=== PATIENT | male | born 1960 | race Caucasian/White ===

== ENCOUNTER 2018-04-07 01:17 | Emergency (ER) | payer MEDICAID, OTHER ==
[2018-04-07] MEDS ORDERED: ALPRAZolam 1 MG TAB PO STA (01:56)
--- NOTE | 2018-04-07 02:11 | ED ---
Psych HPI - General Chief Complaint: Psychiatric Symptoms Stated Complaint: Mental health Time Seen by Provider: 04/07/18 01:42 Source: patient Mode of arrival: ambulatory - History of Present Illness Initial Comments: 57-year-old male patient with past history significant for bipolar type schizoaffective disorder presents to the emergency department today for psychiatric evaluation and increased auditory hallucinations. Patient states he has not taken his medication for the last 5 days. States he threw them away because "Lord Palencia is my savior and with him I do not need medication". Patient denies any suicidal or homicidal ideation. He will not reveal what the voices say to him. Patient denies any current physical symptoms or concerns. Denies any alcohol use. States he does occasionally smoke marijuana. Patient denies any recent rash, fever, chills, shortness breath, chest pain, abdominal pain, nausea, vomiting, diarrhea, constipation, back pain, numbness, tingling, dizziness, weakness, hematuria, dysuria, urinary urgency, urinary frequency, headache, visual changes, or any other complaints. - Related Data Home Medications Medication Instructions Recorded Confirmed HYDROcodone/APAP 7.5-325MG [[place] 1 each PO Q6HR PRN 03/15/15 03/16/15 7.5-325] Previous Rx's Medication Instructions Recorded clonazePAM [KlonoPIN] 1 mg PO BID PRN #30 tab 08/27/14 Gabapentin [Neurontin] 300 mg PO BID #14 cap 03/20/15 Levothyroxine Sodium [Synthroid] 100 mcg PO DAILY@0630 #7 tab 03/20/15 OLANZapine [ZyPREXA] 20 mg PO HS #7 tab 03/20/15 Sertraline [Zoloft] 100 mg PO DAILY #7 tab 03/20/15 hydrOXYzine PAMOATE [Vistaril] 25 mg PO DAILY #7 cap 03/20/15 hydrOXYzine PAMOATE [Vistaril] 50 mg PO HS #7 cap 03/20/15 Allergies Allergy/AdvReac Type Severity Reaction Status Date / Time No Known Allergies Allergy Verified 04/07/18 01:27 Review of Systems ROS Statement: Those systems with pertinent positive or pertinent negative responses have been documented in the HPI. ROS Other: All systems not noted in ROS Statement are negative. Past Medical History Past Medical History: No Reported History Additional Past Medical History / Comment(s): hepatits c History of Any Multi-Drug Resistant Organisms: None Reported Past Surgical History: Appendectomy, Hernia Repair Additional Past Surgical History / Comment(s): 2 Hernia Repairs Past Anesthesia/Blood Transfusion Reactions: No Reported Reaction Past Psychological History: Anxiety, Bipolar, Depression Smoking Status: Current every day smoker Past Alcohol Use History: None Reported Past Drug Use History: None Reported General Exam Limitations: no limitations General appearance: alert, in no apparent distress, other (Social well-developed , well-nourished adult male patient in no acute distress. Vital signs upon presentation are temperature 98.8F, pulse 121, respirations 20, blood pressure 152/87, pulse ox 96% on room air.) Eye exam: Present: normal appearance, PERRL, EOMI. Absent: scleral icterus, conjunctival injection, periorbital swelling ENT exam: Present: normal exam, normal oropharynx, mucous membranes moist Respiratory exam: Present: normal lung sounds bilaterally. Absent: respiratory distress, wheezes, rales, rhonchi, stridor Cardiovascular Exam: Present: regular rate, normal rhythm, normal heart sounds. Absent: systolic murmur, diastolic murmur, rubs, gallop, clicks GI/Abdominal exam: Present: soft, normal bowel sounds. Absent: distended, tenderness, guarding, rebound, rigid Neurological exam: Present: alert, oriented X3, CN II-XII intact Psychiatric exam: Present: manic. Absent: homicidal ideation, suicidal ideation Skin exam: Present: warm, dry, intact, normal color. Absent: rash Course Vital Signs 04/07/18 01:23 Temperature 98.8 F Pulse Rate 121 H Respiratory 20 Rate Blood Pressure 152/87 O2 Sat by Pulse 96 Oximetry Medical Decision Making - Medical Decision Making 57-year-old male patient presents to the emergency department today for evaluation of increased auditory hallucinations and coral. Patient states his symptoms are not that bad that he wanted to present before things got out of control. He is not suicidal or homicidal. He was seen and evaluated by emergency psychiatric services. They do feel that he will be safe for discharge. He does agree to follow-up with both his primary care physician and [facility] tomorrow. He'll be given Klonopin prior to discharge. Return parameters were discussed in detail. He verbalizes understanding and agrees with this plan. Disposition Clinical Impression: Schizoaffective disorder Disposition: HOME SELF-CARE Condition: Good Instructions: Schizoaffective Disorder (ED) Additional Instructions: Follow-up with primary care physician and community mental health tomorrow. Take medication as directed. Return here immediately for any new, worsening, or concerning symptoms. Is patient prescribed a controlled substance at d/c from ED?: No Referrals: Mikhail Baker MD [Primary Care Provider] - 1-2 days Time of Disposition: 04:16
[2018-04-07] MEDS ORDERED: clonazePAM 1 MG TAB PO STA (04:11)
[2018-04-07 04:33] VITALS: BP 134/75; PULSE 78; RESP 18; TEMP 97
== END 2018-04-07 04:33 | disposition home or self-care (01) ==
LOC: EC 01:17
DX: F25.9 Schizoaffective disorder, unspecified (principal); F12.90 Cannabis use, unspecified, uncomplicated; F17.200 Nicotine dependence, unspecified, uncomplicated
CPT/HCPCS: 99285

== ENCOUNTER 2018-09-10 14:20 | Emergency (ER) | payer OTHER ==
[2018-09-10] MEDS ORDERED: SODIUM CHLORIDE 0.9% 500 ML 500 ML IV STA (14:46)
[2018-09-10] MEDS ORDERED: ONDANSETRON 4 MG/2 ML VIAL IVP STA (14:46)
[2018-09-10] MEDS ORDERED: SODIUM CHLORIDE 0.9% 1,000 ML IV STA (14:46)
[2018-09-10 14:59] LABS: Basophils % (A) 0 %; Eosinophils # (A) 0.2 k/uL (0-0.7); Eosinophils % (A) 2 %; HCT 43.4 % (39.0-53.0); HGB 14.3 gm/dL (13.0-17.5); Lymphocytes # (A) 1.2 k/uL (1.0-4.8); Lymphocytes % (A) 11 %; MCH 30.9 pg (25.0-35.0); MCHC 32.9 g/dL (31.0-37.0); MCV 93.8 fL (80.0-100.0); Mean Platelet Volume 6.8; Monocytes # (A) 0.4 k/uL (0-1.0); Monocytes % (A) 4 %; Neutrophils # (A) 9.1 k/uL (1.3-7.7); Neutrophils % (A) 83 %; Platelet Count 332 k/uL (150-450); RBC 4.63 m/uL (4.30-5.90); RDW 12.7 % (11.5-15.5)
--- NOTE | 2018-09-10 14:59 | ED ---
General Adult HPI - General Chief complaint: Nausea/Vomiting/Diarrhea Stated complaint: Nausea Time Seen by Provider: 09/10/18 14:20 Source: EMS, RN notes reviewed Mode of arrival: EMS Limitations: no limitations - History of Present Illness Initial comments: This is a 57-year-old male presents emergency room stating last night he vomited after he ate dinner. Patient states she went to bed and was feeling better at that time. Patient states she woke up this morning and she's been nauseated ever since per patient states she's been unable to vomit. Patient denies any diarrhea. Patient states she has no abdominal pain but his whole abdomen feels nauseated. Patient denies any fever chills per patient denies any dysuria hematuria urinary frequency. Patient denies any chest pain difficulty breathing first breath per patient denies any headache patient denies any numbness weakness. Patient denies any lightheadedness dizziness or near syncopal episode. Patient denies any blood in the vomitus. - Related Data Home Medications Medication Instructions Recorded Confirmed HYDROcodone/APAP 7.5-325MG [[place] 1 each PO Q6HR PRN 03/15/15 03/16/15 7.5-325] Previous Rx's Medication Instructions Recorded clonazePAM [KlonoPIN] 1 mg PO BID PRN #30 tab 08/27/14 Gabapentin [Neurontin] 300 mg PO BID #14 cap 03/20/15 Levothyroxine Sodium [Synthroid] 100 mcg PO DAILY@0630 #7 tab 03/20/15 OLANZapine [ZyPREXA] 20 mg PO HS #7 tab 03/20/15 Sertraline [Zoloft] 100 mg PO DAILY #7 tab 03/20/15 hydrOXYzine PAMOATE [Vistaril] 25 mg PO DAILY #7 cap 03/20/15 hydrOXYzine PAMOATE [Vistaril] 50 mg PO HS #7 cap 03/20/15 Ondansetron [Zofran] 4 mg PO Q8HR PRN #5 tab 09/10/18 Allergies Allergy/AdvReac Type Severity Reaction Status Date / Time No Known Allergies Allergy Verified 04/07/18 01:27 Review of Systems ROS Statement: Those systems with pertinent positive or pertinent negative responses have been documented in the HPI. ROS Other: All systems not noted in ROS Statement are negative. Past Medical History Past Medical History: No Reported History Additional Past Medical History / Comment(s): hepatits c History of Any Multi-Drug Resistant Organisms: None Reported Past Surgical History: Appendectomy, Hernia Repair Additional Past Surgical History / Comment(s): 2 Hernia Repairs Past Anesthesia/Blood Transfusion Reactions: No Reported Reaction Past Psychological History: Anxiety, Bipolar, Depression Smoking Status: Current every day smoker Past Alcohol Use History: None Reported Past Drug Use History: None Reported General Exam - General Exam Comments Initial Comments: GENERAL: Patient is well-developed and well-nourished. Patient is nontoxic and well- hydrated and is in no acute distress. ENT: Neck is soft and supple. No significant lymphadenopathy is noted. Neck has full range of motion without eliciting any pain. EYES: The sclera were anicteric and conjunctiva were pink and moist. Extraocular movements were intact and pupils were equal round and reactive to light. Eyelids were unremarkable. PULMONARY: Unlabored respirations. Good breath sounds bilaterally. No audible rales rhonchi or wheezing was noted. CARDIOVASCULAR: There is a regular rate and rhythm without any murmurs gallops or rubs. ABDOMEN: Soft and nontender with normal bowel sounds. No palpable organomegaly was noted. There is no palpable pulsatile mass. SKIN: Skin is clear with no lesions or rashes and otherwise unremarkable. NEUROLOGIC: Patient is alert and oriented x3. Cranial nerves II through XII are grossly intact. Motor and sensory are also intact. Normal speech, volume and content. Symmetrical smile. MUSCULOSKELETAL: Normal extremities with adequate strength and full range of motion. No lower extremity swelling or edema. No calf tenderness. LYMPHATICS: No significant lymphadenopathy is noted PSYCHIATRIC: Normal psychiatric evaluation. Limitations: no limitations Course Vital Signs 09/10/18 09/10/18 14:21 15:42 Temperature 99.5 F 99 F Pulse Rate 67 72 Respiratory 24 20 Rate Blood Pressure 159/100 145/97 O2 Sat by Pulse 99 99 Oximetry Medical Decision Making - Medical Decision Making Patient received a liter of fluid in the emergency department as well as Zofran. Patient states he felt considerably better. I went back in and reevaluated t he patient his abdomen was soft nontender. - Lab Data Result diagrams: 09/10/18 14:50 09/10/18 14:50 Lab Results 09/10/18 09/10/18 Range/Units 14:50 14:50 WBC 11.0 H (3.8-10.6) k/uL RBC 4.63 (4.30-5.90) m/uL Hgb 14.3 (13.0-17.5) gm/dL Hct 43.4 (39.0-53.0) % MCV 93.8 (80.0-100.0) fL MCH 30.9 (25.0-35.0) pg MCHC 32.9 (31.0-37.0) g/dL RDW 12.7 (11.5-15.5) % Plt Count 332 (150-450) k/uL Neutrophils % 83 % Lymphocytes % 11 % Monocytes % 4 % Eosinophils % 2 % Basophils % 0 % Neutrophils # 9.1 H (1.3-7.7) k/uL Lymphocytes # 1.2 (1.0-4.8) k/uL Monocytes # 0.4 (0-1.0) k/uL Eosinophils # 0.2 (0-0.7) k/uL Basophils # 0.0 (0-0.2) k/uL Sodium 141 (137-145) mmol/L Potassium 3.6 (3.5-5.1) mmol/L Chloride 109 H (98-107) mmol/L Carbon Dioxide 21 L (22-30) mmol/L Anion Gap 11 mmol/L BUN 16 (9-20) mg/dL Creatinine 0.77 (0.66-1.25) mg/dL Est GFR (CKD-EPI)AfAm >90 (>60 ml/min/1.73 sqM) Est GFR (CKD-EPI)NonAf >90 (>60 ml/min/1.73 sqM) Glucose 126 H (74-99) mg/dL Calcium 9.9 (8.4-10.2) mg/dL Total Bilirubin 0.6 (0.2-1.3) mg/dL AST 19 (17-59) U/L ALT 27 (21-72) U/L Alkaline Phosphatase 102 (38-126) U/L Total Protein 7.5 (6.3-8.2) g/dL Albumin 4.6 (3.5-5.0) g/dL Amylase 53 (30-110) U/L Lipase 60 (23-300) U/L Disposition Clinical Impression: Acute vomiting Disposition: HOME SELF-CARE Instructions (If sedation given, give patient instructions): Acute Nausea and Vomiting (ED) Prescriptions: Ondansetron [Zofran] 4 mg PO Q8HR PRN #5 tab PRN Reason: Nausea Is patient prescribed a controlled substance at d/c from ED?: No Referrals: Mikhail Baker MD [Primary Care Provider] - 1-2 days Time of Disposition: 15:28
[2018-09-10 15:09] LABS: ALT 27 U/L (21-72); AST 19 U/L (17-59); Albumin 4.6 g/dL (3.5-5.0); Alkaline Phosphatase 102 U/L (38-126); Amylase 53 U/L (30-110); Anion Gap 11 mmol/L; Blood Urea Nitrogen 16 mg/dL (9-20); Calcium 9.9 mg/dL (8.4-10.2); Carbon Dioxide 21 mmol/L (22-30); Chloride 109 mmol/L (98-107); Glucose 126 mg/dL (74-99); Lipase 60 U/L (23-300); Potassium 3.6 mmol/L (3.5-5.1); Sodium 141 mmol/L (137-145); Total Bilirubin 0.6 mg/dL (0.2-1.3); Total Protein 7.5 g/dL (6.3-8.2)
[2018-09-10 15:44] VITALS: BP 145/97; PULSE 72; RESP 20; TEMP 99
== END 2018-09-10 15:43 | disposition home or self-care (01) ==
LOC: EEVIPCON 14:20 → EC 14:20
DX: R11.2 Nausea with vomiting, unspecified (principal); F17.200 Nicotine dependence, unspecified, uncomplicated; Z90.49 Acquired absence of other specified parts of digestive tract
CPT/HCPCS: 36415; 80053; 82150; 83690; 85025; 99284; 96374; 96361; J2405

== ENCOUNTER 2022-09-24 23:08 | Inpatient (IN) | payer OTHER ==
[2022-09-25] MEDS ORDERED: LORazepam 2 MG/ML INJ IM STA (00:54)
--- NOTE | 2022-09-25 01:17 | ED ---
General Adult HPI - General Chief complaint: Psychiatric Symptoms Stated complaint: Mental Health Time Seen by Provider: 09/24/22 23:24 Source: patient, police, RN notes reviewed, old records reviewed Mode of arrival: ambulatory - History of Present Illness Initial comments: 61-year-old male with history of schizophrenia presenting with paranoia and behavior. He was brought in by medics after calling police. Patient is not able to give a detailed history. He is paranoid and quite agitated. - Related Data Home Medications Medication Instructions Recorded Confirmed HYDROcodone/APAP 7.5-325MG [[place] 1 each PO Q6HR PRN 03/15/15 03/16/15 7.5-325] Previous Rx's Medication Instructions Recorded clonazePAM [KlonoPIN] 1 mg PO BID PRN #30 tab 08/27/14 Gabapentin [Neurontin] 300 mg PO BID #14 cap 03/20/15 Levothyroxine Sodium [Synthroid] 100 mcg PO DAILY@0630 #7 tab 03/20/15 OLANZapine [ZyPREXA] 20 mg PO HS #7 tab 03/20/15 Sertraline [Zoloft] 100 mg PO DAILY #7 tab 03/20/15 hydrOXYzine pamoate [Vistaril] 25 mg PO DAILY #7 cap 03/20/15 hydrOXYzine pamoate [Vistaril] 50 mg PO HS #7 cap 03/20/15 Ondansetron [Zofran] 4 mg PO Q8HR PRN #5 tab 09/10/18 Allergies Allergy/AdvReac Type Severity Reaction Status Date / Time No Known Allergies Allergy Verified 04/07/18 01:27 Review of Systems ROS Statement: Those systems with pertinent positive or pertinent negative responses have been documented in the HPI. ROS Other: All systems not noted in ROS Statement are negative. Past Medical History Past Medical History: No Reported History Additional Past Medical History / Comment(s): hepatits c History of Any Multi-Drug Resistant Organisms: None Reported Past Surgical History: Appendectomy, Hernia Repair Additional Past Surgical History / Comment(s): 2 Hernia Repairs Past Anesthesia/Blood Transfusion Reactions: No Reported Reaction Past Psychological History: Anxiety, Bipolar, Depression Past Alcohol Use History: None Reported Past Drug Use History: None Reported General Exam General appearance: alert, in no apparent distress Head exam: Present: atraumatic, normocephalic Eye exam: Present: normal appearance, PERRL ENT exam: Present: normal exam Neck exam: Present: normal inspection. Absent: tenderness, meningismus Respiratory exam: Present: normal lung sounds bilaterally. Absent: respiratory distress Cardiovascular Exam: Present: regular rate, normal rhythm GI/Abdominal exam: Absent: distended Neurological exam: Present: alert. Absent: oriented X3, motor sensory deficit Psychiatric exam: Present: agitated Skin exam: Present: warm, dry, intact Course Vital Signs 09/24/22 23:11 Temperature 99 F Pulse Rate 107 H Respiratory 18 Rate Blood Pressure 148/106 O2 Sat by Pulse 98 Oximetry - Reevaluation(s) Reevaluation #1: 09/25/22 01:17 Cleared for EPS Medical Decision Making - Medical Decision Making Was pt. sent in by a medical professional or institution ([facility] Garcia, SCHEDULING MANAGER, urgent care, hospital, or [place] [facility] facility...) When possible be specific @ -No Did you speak to anyone other than the patient for history (EMS, parent, family, police, friend...)? What history was obtained from this source @ -No Did you review nursing and triage notes (agree or disagree)? Why? @ -I reviewed and agree with nursing and triage notes Were old charts reviewed (outside hosp., previous admission, EMS record, old EKG, old radiological studies, urgent care reports/EKG's, [place] health [facility] facility records)? Report findings @ -No old charts were reviewed Differential Diagnosis (chest pain, altered mental status, abdominal pain women, abdominal pain men, vaginal bleeding, weakness, fever, dyspnea, syncope, headache, dizziness, GI bleed, back pain, seizure, CVA, palpatations, mental health, musculoskeletal)? @ -Differential Mental Health Depression, anxiety, bipolar, psychosis, schizophrenia, borderline personality, situational depression, adjustment disorder, behavioral disorder, brain tumor, malingering, substance abuse, encephalopathy, medication reaction, dementia, hypothyroidism, degenerative neurologic disorder, lupus.... This is not meant to be all-inclusive list EKG interpreted by me (3pts min.). @ -As above X-rays interpreted by me (1pt min.). @ -None done CT interpreted by me (1pt min.). @ -None done U/S interpreted by me (1pt. min.). @ -None done What testing was considered but not performed or refused? (CT, X-rays, U/S, labs)? Why? @ -None What meds were considered but not given or refused? Why? @ -None Did you discuss the management of the patient with other professionals (professionals i.e. , PA, SCHEDULING MANAGER, lab, RT, psych nurse, marriage and family social worker, criminal defense lawyer, teacher, classifications officer cc/cm, caseworker protective services)? Give summary @ -No Was smoking cessation discussed for >3mins.? @ -No Was critical care preformed (if so, how long)? @ -No Were there social determinants of health that impacted care today? How? (Homelessness, low income, unemployed, alcoholism, drug addiction, transportation, low edu. Level, literacy, decrease access to med. care, senior living, rehab)? @ -No Was there de-escalation of care discussed even if they declined (Discuss DNR or withdrawal of care, Hospice)? DNR status @ -No What co-morbidities impacted this encounter? (DM, HTN, Smoking, COPD, CAD, Cancer, CVA, ARF, Chemo, Hep., AIDS, mental health diagnosis, sleep apnea, morbid obesity)? @ -None Was patient admitted / discharged? Hospital course, mention meds given and route, prescriptions, significant lab abnormalities, going to OR and other pertinent info. @ -Patient acutely psychotic, off of his medications with history of schizophrenia. He will be admitted to this institution. Undiagnosed new problem with uncertain prognosis? @ -No Drug Therapy requiring intensive monitoring for toxicity (Heparin, Nitro, Insulin, Cardizem)? @ -No Were any procedures done? @ -No Diagnosis/symptom? @ -Acute psychosis Acute, or Chronic, or Acute on Chronic? @ -Acute Disposition Clinical Impression: Psychosis, Acute psychosis Disposition: ADMITTED IP TO THIS [facility] Condition: Stable Is patient prescribed a controlled substance at d/c from ED?: No Referrals: Mikhail Baker MD [Primary Care Provider] - 1-2 days Time of Disposition: 01:35
[2022-09-25] MEDS ORDERED: ACETAMINOPHEN TAB 325 MG TAB PO PRN (02:32)
[2022-09-25] MEDS ORDERED: MAGNESIUM HYDROXIDE 2,400 MG/10 ML CUP PO PRN (02:32)
[2022-09-25] MEDS ORDERED: MAG HYDROX/AL HYDROX/SIMETH 30 ML CUP PO PRN (02:32)
[2022-09-25 02:33] LABS: Urn Cannabinoid Scrn Detected (NotDetected)
[2022-09-25 02:34] LABS: Amphetamine Screen,Urine Not Detected (NotDetected); Barbiturate Screen,Urine Not Detected (NotDetected); Benzodiazepines Screen,Urine Detected (NotDetected); Cocaine Screen,Urine Not Detected (NotDetected); Methadone Screen, Urine Not Detected (NotDetected); Opiate Screen,Urine Not Detected (NotDetected); Oxycodone Screen, Urine Not Detected (NotDetected); Phencyclidine Screen,Urine Not Detected (NotDetected); Tricyclic Antidepressant,Urine Detected (NotDetected)
[2022-09-25] MEDS ORDERED: LORazepam 2 MG/ML INJ IM PRN (02:42)
[2022-09-25] MEDS ORDERED: haloperidoL 5 MG TAB PO PRN (02:43)
[2022-09-25 04:04] LABS: Appearance,Urine Clear (Clear); Bacteria,Urine Rare /hpf; Bilirubin,Urine Negative (Negative); Blood,Urine Negative (Negative); Color,Urine Yellow; Glucose,Urine (UA) Negative (Negative); Hyaline Casts,Urine 132 /lpf (0-2); Ketones,Urine Negative (Negative); Leukocyte Esterase,Urine Negative (Negative); Mucus,Urine Occasional /hpf; Nitrite,Urine Negative (Negative); PH, Urine 5.5 (5.0-8.0); Protein,Urine 1+ (Negative); RBC,Urine 2 /hpf (0-5); Specific Gravity,Urine 1.027 (1.001-1.035); WBC,Urine 2 /hpf (0-5)
[2022-09-25] MEDS: NICOTINE 14MG/24HR PATCH TRANSDERM SCH ×2 (04:33→12:50)
[2022-09-25] MEDS: LEVOTHYROXINE 100 MCG TAB PO SCH (05:43)
[2022-09-25] MEDS ORDERED: OXcarbazepine 300 MG TAB PO SCH (09:00)
[2022-09-25] MEDS ORDERED: SERTRALINE 100 MG TAB PO SCH (09:00)
[2022-09-25] MEDS ORDERED: diphenhydrAMINE 50 MG/ML 1 ML VIAL IM PRN (09:51)
[2022-09-25] MEDS: lisinopriL 10 MG TAB PO SCH (09:58)
--- NOTE | 2022-09-25 11:22 | P.HP ---
Psychiatric H&P - . H&P Date: 09/25/22 History & Physical: Allergies Allergy/AdvReac Type Severity Reaction Status Date / Time No Known Allergies Allergy Verified 09/25/22 03:14 Vital Signs Temp 98.0 F 09/25/22 04:13 Pulse 76 09/25/22 04:13 Resp 16 09/25/22 04:13 BP 145/90 09/25/22 04:13 Pulse Ox 96 09/25/22 04:13 FiO2 Intake & Output 09/24/22 09/25/22 09/25/22 18:59 06:59 18:59 Weight 90.293 kg Laboratory Last Values Urine Color Yellow 09/25/22 01:59 Urine Appearance Clear (Clear) 09/25/22 01:59 Urine pH 5.5 (5.0-8.0) 09/25/22 01:59 Ur Specific [place] 1.027 (1.001-1.035) 09/25/22 01:59 Urine Protein 1+ (Negative) H 09/25/22 01:59 Urine Glucose (UA) Negative (Negative) 09/25/22 01:59 Urine Ketones Negative (Negative) 09/25/22 01:59 Urine Blood Negative (Negative) 09/25/22 01:59 Urine Nitrite Negative (Negative) 09/25/22 01:59 Urine Bilirubin Negative (Negative) 09/25/22 01:59 Urine Urobilinogen 3.0 mg/dL (<2.0) 09/25/22 01:59 Ur Leukocyte Esterase Negative (Negative) 09/25/22 01:59 Urine RBC 2 /hpf (0-5) 09/25/22 01:59 Urine WBC 2 /hpf (0-5) 09/25/22 01:59 Urine Bacteria Rare /hpf (None) H 09/25/22 01:59 Hyaline Casts 132 /lpf (0-2) H 09/25/22 01:59 Urine Mucus Occasional /hpf (None) H 09/25/22 01:59 Urine Opiates Screen Not Detected (NotDetected) 09/25/22 01:59 Ur Oxycodone Screen Not Detected (NotDetected) 09/25/22 01:59 Urine Methadone Screen Not Detected (NotDetected) 09/25/22 01:59 Ur Propoxyphene Screen Not Detected (NotDetected) 09/25/22 01:59 Ur Barbiturates Screen Not Detected (NotDetected) 09/25/22 01:59 U Tricyclic Antidepress Detected (NotDetected) H 09/25/22 01:59 Ur Phencyclidine Scrn Not Detected (NotDetected) 09/25/22 01:59 Ur Amphetamines Screen Not Detected (NotDetected) 09/25/22 01:59 U Methamphetamines Scrn Not Detected (NotDetected) 09/25/22 01:59 U Benzodiazepines Scrn Detected (NotDetected) H 09/25/22 01:59 Urine Cocaine Screen Not Detected (NotDetected) 09/25/22 01:59 U Marijuana (THC) Screen Detected (NotDetected) H 09/25/22 01:59 Coronavirus (PCR) Not Detected (Not Detectd) 09/25/22 01:59 09/25/22 11:20 IDENTIFYING DATA: Patient is a single, unemployed, 61-year-old male, with a significant history of schizoaffective disorder, bipolar type, who presented to our hospital on 09/24/2022 for psychiatric assessment. HPI: Patient presented to the hospital on 09/24/2022, brought into the hospital by police for mental health assessment. Prior to his presentation in the hospital, the patient was noted to call 911 approximately 9 times last night. He was noted to be extremely loud, labile, with tangential and pressured speech and emergency department. Furthermore, the patient was noted to endorse grandiose delusions and excessive energy. He was notably agitated. He also reported that he was going to refuse any medications. He was subsequently admitted onto the psychiatric unit. Upon evaluation on the psychiatric unit, the patient appears to be overtly manic. He is constantly yelling at other patients stating that "you all just need to wake up and it is my job to wake you guys up!" When evaluated by this provider, he vehemently denies the need for admission. He states that he has a concert this Wednesday that "all the young people have bought tickets for and they'll be very disappointed if I'm unable to perform at this concert." The patient states that the only medication that works would be Quaaludes. He reports that he was on Quaaludes when he was 8 years old. In regards to the reason for his admission, the patient states that he has been trying to contact his father over the phone because his father is sick. He states that he was unable to get in touch with his father therefore he called 911. He reports that the information systems operator told him to stop abusing 911 and in retaliation he decided to continue to call her repeatedly. This provider discussed with the patient initiating medications with Depakote and Prolixin. He vehemently denies the need for any medications. He reports that it is his duty to "wake up everybody on the unit because they are all asleep and we are keeping them asleep." A second clinical certificate was filled out for psychiatric treatment. PAST PSYCHIATRIC HISTORY: Patient has a history of schizoaffective disorder, bipolar type. His home medications prior to this admission included Trileptal, Zyprexa, and Zoloft. Review of his previous admissions back in 2014 revealed being on the same regimen as well as Klonopin, gabapentin, and Vistaril. Patient is unable to identify all his psychiatric admissions however he has been admitted to our psychiatric unit 2 times in 2014 and once in 2013. The patient is open with [facility]. The patient refuses to answer any questions regarding suicidal thoughts. The patient reports that he has been previously trialed on Thorazine and vehemently hates this medication. PMH: Past Medical History: No Reported History Additional Past Medical History / Comment(s): hepatits c History of Any Multi-Drug Resistant Organisms: None Reported Past Surgical History: Appendectomy, Hernia Repair Additional Past Surgical History / Comment(s): 2 Hernia Repairs Past Anesthesia/Blood Transfusion Reactions: No Reported Reaction Past Psychological History: Anxiety, Bipolar, Depression Past Alcohol Use History: None Reported Past Drug Use History: None Reported ALLERGIES: NO KNOWN DRUG ALLERGIES CHEMICAL DEPENDENCY HISTORY: As patient is grossly manic, we are unable to obtain a full history however he did test positive for tricyclic antidepressants, benzodiazepines, and marijuana on his urinary drug screen. FAMILY PSYCHIATRIC/SUBSTANCE USE HISTORY: As per chart review, the patient's maternal aunt and the patient's brother have been both diagnosed with schizophrenia SOCIAL HISTORY: This history is obtained through chart review as the patient is an unreliable historian at this time. The patient is reportedly single, never , and has no children. Review of his chart reveals that the patient had a girlfriend for 10 years that prior to 2014. Reportedly his father is ill. His brother is . His sisters "want nothing to do with me." MENTAL STATUS EXAM: General Appearance: Patient appears to be stated age is alert, not directable and not cooperative. Patient appears to have slightly disheveled hygiene and grooming. Behavior: Patient is constantly pacing the hallways and using the phone. He is yelling at other patients telling them to "wake up!" Psychomotor agitation is evident. Speech: Patient's speech is loud, pressured, spontaneous, tangential. Mood/Affect: Patient reports their mood is "I don't need to be here!" Affect is expansive, labile, and irritable. Suicidality/Homicidality: Unable to assess as patient does not answer. Perceptions: Unable to assess as patient does not answer Though content/process: Flight of ideas, grandiose delusions Memory and concentration: Grossly poor Judgment and insight: Grossly poor STRENGTHS/WEAKNESSES: Unable to identify patient's strengths. Weakness that the patient is grossly manic and is refusing treatment. INTELLECT: average IMPRESSIONS: Schizoaffective disorder, bipolar type, manic episode PLAN: -Patient is admitted under involuntary status to [facility] for stabilization of psychiatric symptoms and safety. A second certification was completed and along with petition will be filed for court. -Medications : Will start patient on Depakene solution 1000 mg by mouth at bedtime for mood stabilization Prolixin 3 mg by mouth twice a day for mood stabilization/psychosis -Ativan, Haldol, Benadryl for agitation/aggression -Patient was informed of the risks, benefits and side effects of the medication and patient verbally consented to taking the medications. Patient is refusing any medication. -Internal Medicine consult to perform medical evaluation and physical. -NRT - nicotine patch -SW on board for discharge planning. Encourage patient to participate in groups to work on coping skills. 09/25/22 11:21
[2022-09-25] MEDS: SERTRALINE 50 MG TAB PO SCH (12:26)
[2022-09-25] MEDS ORDERED: chlorproMAZINE 25 MG TAB PO PRN ×2 (14:28)
[2022-09-25] MEDS ORDERED: OLANZapine 10 MG TAB PO ONE (14:33)
[2022-09-25] MEDS ORDERED: traZODone HCL 100 MG TAB PO PRN (14:37)
[2022-09-25] MEDS: LORazepam 1 MG TAB PO PRN (17:15)
[2022-09-25] MEDS: VALPROIC ACID ORAL SOLN 250 MG/5 ML CUP PO SCH (20:52)
[2022-09-25] MEDS ORDERED: OLANZapine 10 MG TAB PO SCH (21:00)
--- NOTE | 2022-09-25 21:25 | P.CONS ---
History of Present Illness - History of Present Illness This is a pleasant 61 years old male with past medical history of schizophrenia, hypothyroidism He was admitted to the mental health unit with a diagnosis of Schizoaffective disorder, bipolar type, manic episode Today he was seen in walking in the hallway trying to talk to several people at the same time, expressing pressure of thoughts at flight of ideas. However he denies any specific symptoms for me, no headache dizziness weakness or numbness. Pain dyspnea. No abdominal pain vomiting or diarrhea. Vitas looks stable Urine analysis is negative for infection she'll showing hyaline cast 132 and urine protein 1+. Urine drug screen is positive for tricyclic antidepressant, benzodiazepine and marijuana Review of Systems Review of systems CONSTITUTIONAL: No fever, no malaise, no fatigue. HEENT: No recent visual problems or hearing problems. Denied any sore throat. CARDIOVASCULAR: No orthopnea, PND, no palpitations, no syncope. PULMONARY: No shortness of breath, no cough, no hemoptysis. GASTROINTESTINAL: No diarrhea, no nausea, no vomiting, no abdominal pain. Normoactive bowel sounds. NEUROLOGICAL: No headaches, no weakness, no numbness. HEMATOLOGICAL: Denies any bleeding or petechiae. GENITOURINARY: Denies any burning micturition, frequency, or urgency. MUSCULOSKELETAL/RHEUMATOLOGICAL: Denies any joint pain, swelling, or any muscle pain. ENDOCRINE: Denies any polyuria or polydipsia. Past Medical History Past Medical History: No Reported History Additional Past Medical History / Comment(s): hepatits c History of Any Multi-Drug Resistant Organisms: None Reported Past Surgical History: Appendectomy, Hernia Repair Additional Past Surgical History / Comment(s): 2 Hernia Repairs Past Anesthesia/Blood Transfusion Reactions: No Reported Reaction Smoking Status: Current every day smoker Medications and Allergies Home Medications Medication Instructions Recorded Confirmed Type clonazePAM [KlonoPIN] 1 mg PO BID PRN #30 tab 08/27/14 09/25/22 Rx HYDROcodone/APAP 7.5-325MG [Terral 1 each PO Q6HR PRN 03/15/15 09/25/22 History 7.5-325] Gabapentin [Neurontin] 300 mg PO BID #14 cap 03/20/15 09/25/22 Rx Levothyroxine Sodium [Synthroid] 100 mcg PO DAILY@0630 #7 tab 03/20/15 09/25/22 Rx OLANZapine [ZyPREXA] 20 mg PO HS #7 tab 03/20/15 09/25/22 Rx Sertraline [Zoloft] 100 mg PO DAILY #7 tab 03/20/15 09/25/22 Rx hydrOXYzine pamoate [Vistaril] 25 mg PO DAILY #7 cap 03/20/15 09/25/22 Rx hydrOXYzine pamoate [Vistaril] 50 mg PO HS #7 cap 03/20/15 09/25/22 Rx Ondansetron [Zofran] 4 mg PO Q8HR PRN #5 tab 09/10/18 09/25/22 Rx Allergies Allergy/AdvReac Type Severity Reaction Status Date / Time No Known Allergies Allergy Verified 09/25/22 03:14 Physical Exam Vitals: Vital Signs Temp Pulse Pulse Resp BP BP Pulse Ox 09/25/22 04:13 98.0 F 76 16 145/90 96 09/24/22 23:11 99 F 107 H 18 148/106 98 Intake and Output 09/24/22 09/25/22 09/25/22 22:59 06:59 14:59 Other: Weight 90.293 kg GENERAL: The patient is alert and oriented x3, not in any acute distress. Well developed, well nourished. HEENT: Pupils are round and equally reacting to light. EOMI. No scleral icterus. No conjunctival pallor. Normocephalic, atraumatic. No pharyngeal erythema. No thyromegaly. CARDIOVASCULAR: S1 and S2 present. No murmurs, rubs, or gallops. PULMONARY: Chest is clear to auscultation, no wheezing or crackles. ABDOMEN: Soft, nontender, nondistended, normoactive bowel sounds. No palpable organomegaly. MUSCULOSKELETAL: No joint swelling or deformity. EXTREMITIES: No cyanosis, clubbing, or pedal edema. NEUROLOGICAL: Gross neurological examination did not reveal any focal deficits. SKIN: No rashes. no petechiae. Results Labs: Abnormal Lab Results - Last 24 Hours (Table) 09/25/22 09/25/22 Range/Units 01:59 01:59 Urine Protein 1+ H (Negative) Urine Bacteria Rare H (None) /hpf Hyaline Casts 132 H (0-2) /lpf Urine Mucus Occasional H (None) /hpf U Tricyclic Antidepress Detected H (NotDetected) U Benzodiazepines Scrn Detected H (NotDetected) U Marijuana (THC) Screen Detected H (NotDetected) Assessment and Plan Assessment: Schizoaffective disorder, bipolar type, manic episode, management as per second primary team Substance abuse with marijuana, we are comment and patient counseled to quit Hypothyroidism, resume the same medication Recommend patient follow up with PCP in one week after discharge Thank you for consulting us
[2022-09-26] MEDS: LORazepam 1 MG TAB PO PRN ×3 (01:45→20:42)
[2022-09-26] MEDS: LEVOTHYROXINE 100 MCG TAB PO SCH (07:13)
[2022-09-26 07:50] LABS: Basophils # (A) 0.1 k/uL (0-0.2); Basophils % (A) 1 %; Eosinophils # (A) 0.2 k/uL (0-0.7); Eosinophils % (A) 2 %; HCT 47.5 % (39.0-53.0); HGB 15.8 gm/dL (13.0-17.5); Lymphocytes # (A) 2.6 k/uL (1.0-4.8); Lymphocytes % (A) 31 %; MCH 32.3 pg (25.0-35.0); MCHC 33.3 g/dL (31.0-37.0); Mean Platelet Volume 6.8; Monocytes # (A) 0.6 k/uL (0-1.0); Monocytes % (A) 7 %; Neutrophils # (A) 4.9 k/uL (1.3-7.7); Neutrophils % (A) 58 %; Platelet Count 333 k/uL (150-450); RDW 12.8 % (11.5-15.5); WBC 8.5 k/uL (3.8-10.6)
[2022-09-26 08:05] LABS: ALT 17 U/L (4-49); AST 34 U/L (17-59); African American GFR (CKD) 69 (>60 ml/min/1.73 sqM); Albumin 4.7 g/dL (3.5-5.0); Alkaline Phosphatase 79 U/L (38-126); Anion Gap 5 mmol/L; Bilirubin, Delta 0.3 mg/dL (0.0-0.2); Bilirubin,Unconjugated 0.5 mg/dL (0.0-1.1); Blood Urea Nitrogen 22 mg/dL (9-20); Calcium 9.5 mg/dL (8.4-10.2); Carbon Dioxide 33 mmol/L (22-30); Chloride 104 mmol/L (98-107); Glucose 93 mg/dL (74-99); Non-African American GFR(CKD) 60 (>60 ml/min/1.73 sqM); Potassium 4.9 mmol/L (3.5-5.1); Sodium 142 mmol/L (137-145); Total Bilirubin 0.8 mg/dL (0.2-1.3); Total Protein 7.6 g/dL (6.3-8.2)
[2022-09-26] MEDS: NICOTINE 14MG/24HR PATCH TRANSDERM SCH (08:59)
[2022-09-26] MEDS: SERTRALINE 50 MG TAB PO SCH (08:59)
[2022-09-26] MEDS: lisinopriL 10 MG TAB PO SCH (09:34)
[2022-09-26 11:24] LABS: Chol/HDL Ratio 3.88 Ratio; LDL Cholesterol,Calculated 110.6 mg/dL (0.0-131.0); VLDL Calculation 13.36 mg/dL (5.00-40.00)
--- NOTE | 2022-09-26 16:39 | P.PN ---
Progress Note - Text Interval history: Patient was seen [wandering the hallways] and was directable and agreeable to speak with television writer. States that he should not be here and he was taking his medications at home. 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 Some paranoia was elicited.. At this time patient denies any suicidal or homicidal ideations intent or plan. Denies any Auditory or visual hallucinations. Patient denies any side effects from the medications and has been compliant with meds. States that he only wants to take Zyprexa Mental status exam: General Appearance: [Patient appears to be stated age is alert, directable, and cooperative.] Her hygiene Behavior: Irritable Speech: Patient's speech is fluent and nonpressured. Mood/Affect: Affect is full range mood is irritable Suicidality/Homicidality: Patient denies having any suicidal or homicidal ideation intent or plan. Perceptions: Patient denies any auditory or visual hallucinations. Though content/process: Grandiose delusions, paranoid delusions Memory and concentration: AOX3, grossly intact for the purposes of this session Judgment and insight: Poor Assessment/Plan: Continue with current diagnosis. Patient continues to meet criteria for inpatient psychiatric admission for symptom stabilization and safety.[Patient will be maintained on current psychotropic medication regimen.] Monitor for medication compliance and for any psychotropic medication side effects. Will continue to monitor ongoing response to treatment. Encouraged participation in milieu.
[2022-09-26] MEDS: VALPROIC ACID ORAL SOLN 250 MG/5 ML CUP PO SCH (20:43)
[2022-09-27] MEDS: LORazepam 1 MG TAB PO PRN ×3 (02:48→18:45)
[2022-09-27] MEDS: LEVOTHYROXINE 100 MCG TAB PO SCH (05:31)
[2022-09-27] MEDS: NICOTINE 14MG/24HR PATCH TRANSDERM SCH (06:47)
[2022-09-27] MEDS: SERTRALINE 50 MG TAB PO SCH (09:40)
[2022-09-27] MEDS: lisinopriL 10 MG TAB PO SCH (09:42)
[2022-09-27] MEDS: SENNOSIDES 8.6 MG TAB PO PRN (20:12)
[2022-09-27] MEDS: VALPROIC ACID ORAL SOLN 250 MG/5 ML CUP PO SCH (20:14)
[2022-09-28] MEDS: LORazepam 1 MG TAB PO PRN ×4 (00:46→20:12)
[2022-09-28] MEDS: LEVOTHYROXINE 100 MCG TAB PO SCH (06:43)
[2022-09-28] MEDS: NICOTINE 14MG/24HR PATCH TRANSDERM SCH (07:58)
[2022-09-28] MEDS: lisinopriL 10 MG TAB PO SCH (07:59)
[2022-09-28] MEDS: SERTRALINE 50 MG TAB PO SCH (07:59)
[2022-09-28] MEDS: SENNOSIDES 8.6 MG TAB PO PRN (08:57)
[2022-09-28] MEDS ORDERED: carBAMazepine 100 MG TAB.ER.12H PO STA (09:33)
--- NOTE | 2022-09-28 11:35 | P.PN ---
Progress Note - Text Progress Note Date: 09/28/22 Interval History: Patient was seen wandering the hallways and was directable and agreeable to speak with brief writer in the office., The patient is not reporting any suicidal or homicidal ideation, intention, and/or plan. He is not endorsing any auditory or visual hallucinations. He reports no paranoia. He states that he is slightly upset that he was unable to go to his concert however is not fixated on this. He is otherwise not endorsing any other grandiose delusions to this provider. He has been refusing his ordered Depakote however states that he is in agreement to start Tegretol instead as it is chemically similar to Trileptal. He is also adherent with his Prolixin. He does not wish to transition to Prolixin decanoate. He is scheduled to meet with his assistant attorney general today and he states that he plans to defer mental health court. He otherwise reports no issues regarding his sleep or his appetite. He reports no medical issues or concerns. He denies any chest pain, shortness of breath, palpitations, or any musculoskeletal issues. The patient reports that he is not receiving the right blood pressure medication. His home medication does not include any blood pressure medications of this will need to be further explored. Mental Status Exam: General Appearance: Patient appears to be stated age is alert, directable, and cooperative. Behavior: Patient is calmly seated without any agitated behavior. Speech: Patient's speech is fluent and nonpressured. Normal volume today. Mood/Affect: Mood is improving mildly, affect is congruent and slightly expansive. Suicidality/Homicidality: Patient denies having any suicidal or homicidal ideation intent or plan. Perceptions: Patient denies any visual hallucinations and denies any auditory hallucinations Though content/process: There is no evidence of any delusional thought content and thought process is linear and goal-directed. Memory and concentration: AOX3, grossly intact for the purposes of this session Judgment and insight: Improving significantly Vital Signs Temp 97.8 F 09/28/22 00:49 Pulse 72 09/28/22 00:49 Resp 16 09/28/22 00:49 BP 175/89 09/28/22 00:49 Pulse Ox 98 09/28/22 00:49 FiO2 Intake & Output 09/27/22 09/28/22 09/28/22 18:59 06:59 18:59 Weight 90.6 kg Assessment Schizoaffective disorder, bipolar type, manic episode Plan: -Patient continues to meet criteria for inpatient psychiatric admission for symptom stabilization and safety. Patient is scheduled to meet with his assistant attorney general today. He states his intention is to defer mental health court. -Medications: Continue Prolixin 3 mg by mouth twice a day for mood stabilization/psychosis Discontinue Depakene solution as the patient is nonadherent. Start Tegretol 100 mg by mouth daily for mood stabilization -When necessary Ativan, Haldol, Benadryl for agitation/aggression. -SW on board for discharge planning. Encouraged the patient to participate in milieu.
--- NOTE | 2022-09-28 15:03 | P.PN ---
Progress Note - Text Progress Note Date: 09/27/22 Interval history: Continues to talk about the concert. 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 Denies paranoia, agitation, SI, HI, AVH, med side effects. Asking for d/c. Mental status exam: General Appearance: [Patient appears to be stated age is alert, directable, and cooperative.] Behavior: [No agitated behavior. Patient is calm and directable] Speech: elevated rate Mood/Affect: constricted. Suicidality/Homicidality: None elicited Perceptions: Patient denies any auditory or visual hallucinations. Though content/process: grandiose Memory and concentration: AOX3, grossly intact for the purposes of this session Judgment and insight: Poor Assessment/Plan: Continue with current diagnosis. Patient continues to meet criteria for inpatient psychiatric admission for symptom stabilization and safety.[Patient will be maintained on current psychotropic medication regimen.] Monitor for medication compliance and for any psychotropic medication side effects. Will continue to monitor ongoing response to treatment. Encouraged participation in milieu.
[2022-09-29] MEDS: LORazepam 1 MG TAB PO PRN (03:34)
[2022-09-29 03:36] VITALS: BP 141/86; PULSE 82; RESP 17; TEMP 97.9
[2022-09-29] MEDS: LEVOTHYROXINE 100 MCG TAB PO SCH (05:57)
[2022-09-29] MEDS: NICOTINE 14MG/24HR PATCH TRANSDERM SCH (08:37)
[2022-09-29] MEDS: SERTRALINE 50 MG TAB PO SCH (08:38)
[2022-09-29] MEDS: lisinopriL 10 MG TAB PO SCH (08:38)
[2022-09-29] MEDS ORDERED: carBAMazepine 100 MG TAB.ER.12H PO SCH (09:00)
--- NOTE | 2022-09-29 12:33 | P.DS ---
Providers Date of admission: 09/25/22 02:27 Expected date of discharge: 09/29/22 Attending physician: Fausto Ledbetter MD Consults: 09/25/22 02:32 Consult Physician Routine Consulting Provider: Mikhail Baker Consult Reason/Comments: For H & P for Medical Follow Up Do you want consulting provider notified?: Yes, Notify in am Primary care physician: Mikhail Baker - Discharge Diagnosis(es) (1) Schizoaffective disorder, bipolar type Current Visit: Yes Status: Acute Priority: High Hospital Course: Admission HPI: Patient is a single, unemployed, 61-year-old male, with a significant history of schizoaffective disorder, bipolar type, who presented to our hospital on 09/24/2022 for psychiatric assessment. Patient presented to the hospital on 09/24/2022, brought into the hospital by police for mental health assessment. Prior to his presentation in the hospital, the patient was noted to call 911 approximately 9 times last night. He was noted to be extremely loud, labile, with tangential and pressured speech and emergency department. Furthermore, the patient was noted to endorse grandiose delusions and excessive energy. He was notably agitated. He also reported that he was going to refuse any medications. He was subsequently admitted onto the psychiatric unit. Upon evaluation on the psychiatric unit, the patient appears to be overtly manic. He is constantly yelling at other patients stating that "you all just need to wake up and it is my job to wake you guys up!" When evaluated by this provider, he vehemently denies the need for admission. He states that he has a concert this Wednesday that "all the young people have bought tickets for and they'll be very disappointed if I'm unable to perform at this concert." The patient states that the only medication that works would be Quaaludes. He reports that he was on Quaaludes when he was 8 years old. In regards to the reason for his admission, the patient states that he has been trying to contact his father over the phone because his father is sick. He states that he was unable to get in touch with his father therefore he called 911. He reports that the slug press operator told him to stop abusing 911 and in retaliation he decided to continue to call her repeatedly. This provider discussed with the patient initiating medications with Depakote and Prolixin. He vehemently denies the need for any medications. He reports that it is his duty to "wake up everybody on the unit because they are all asleep and we are keeping them asleep." A second clinical certificate was filled out for psychiatric treatment. Patient has a history of schizoaffective disorder, bipolar type. His home medications prior to this admission included Trileptal, Zyprexa, and Zoloft. Review of his previous admissions back in 2014 revealed being on the same regimen as well as Klonopin, gabapentin, and Vistaril. Patient is unable to identify all his psychiatric admissions however he has been admitted to our psychiatric unit 2 times in 2014 and once in 2013. The patient is open with [facility]. The patient refuses to answer any questions regarding suicidal thoughts. The patient reports that he has been previously trialed on Thorazine and vehemently hates this medication. Hospital course: Upon admission to the unit patient was initially presenting as overtly manic with grandiose delusions, pressured speech, mood lability, excessive energy, and agitation. He required administration of IM medications however did not display any significant improvement. A second clinical certificate was filled out due to the patient's coral and uncooperative nature. Patient was started on Prolixin and Depakote for acute coral. He was adherent with his Prolixin however was nonadherent with any Depakote. Despite this, the patient displayed significant and drastic improvement with Prolixin. He became more linear and logical in conversation, had stable sleep, and was less grandiose and delusional. He was also eventually agreeable to transitioning from Depakote to Tegretol. The patient also deferred mental health court. He was adherent with his medications and reported no significant side effects throughout the hospital course. Patient spoke of his stressors and engaged in therapy both group and individual. Patient was also seen by medical team for history and physical exam. On the day of discharge, the patient is not reporting any suicidal or homicidal ideation, intention, and/or plan. He is not reporting any auditory or visual hallucinations. He denies any paranoia or other delusions. He has been in adherent with his medications and is not endorsing any significant side effects. He reports no access to firearms or other weapons. The patient was counseled at length and the importance of medication adherence and appropriate outpatient follow-up. He does not have a significant history of substance abuse however was counseled on abstaining from all substances including alcohol and marijuana. As the patient no longer met criteria for continued inpatient psychiatric hospitals patient, he was subsequently discharged. He reports no medical issuse or concerns. He denies any chest pain, stress, or palpitations. Mental status exam: General Appearance: Patient appears to be stated age is alert, pleasant, and cooperative. Patient is in no acute distress and has fair hygiene and grooming Behavior: Patient is calmly seated without any agitated behavior. Speech: Patient's speech is fluent and nonpressured. Mood/Affect: Patient reports their mood is "much better", affect is congruent and euthymic to bright. Suicidality/Homicidality: Patient denies having any suicidal or homicidal ideation intent or plan. Perceptions: Patient denies any auditory or visual hallucinations. Though content/process: There is no evidence of any delusional thought content and thought process is linear and goal-directed. Patient is future oriented Memory and concentration: AOX3, grossly intact for the purposes of this session. Can spell "WORLD" backwards correctly. Judgment and insight: Improved with guarded prognosis Impression: Schizoaffective disorder, bipolar type, manic episode Plan: -Continue with discharge today as patient has improved and stabilized psychiatrically and is not currently an imminent threat to himself and/or others. Patient will remain at chronically elevated risk due to severity of his mental illness -Continue medications: Prolixin 3 mg by mouth twice a day for mood stabilization/psychosis Tegretol-XR 100 mg by mouth daily for mood stabilization Zoloft 50 mg by mouth daily for depression/anxiety - Zoloft was tapered during this stay due to concerns for manic switch -Patient was counseled on the need for medication compliance and appropriate follow-up at mental health and also primary care for medical issues. Patient verbalized understanding and agreed. -Social work to arrange for and conduct family meeting to ensure safety upon discharge and answer any questions/concerns. Social work also to arrange for patients follow up appointments with [facility] for psychiatric care along with follow up with primary care provider. -Patient counseled on abstaining from recreational drugs and marijuana and alcohol. Was informed/educated on the adverse effects on their physical and mental health. Patient verbally agreed and understood. -Patient was instructed to return to the hospital or seek immediate medical care if their psychiatric or medical symptoms do worsen or reoccur. -Psychoeducation and supportive therapy provided to patient. Risks and benefits of pharmacological treatment versus the risks and benefits of nontreatment weight and discussed. Informed consent discussion held. Common side effects of psychotropics discussed such as, but not limited to headache, GI disturbance, sexual dysfunction, movement disorders, sedation, and orthostatic hypotension. Life threatening and blackbox warnings of prescribed medications also discussed. Potential risks of operating a vehicle or heavy machinery discussed with patient at length. Advised on importance of compliance and a reliable and responsible manner. Patient advised to review FDA consumer labeling of all medications prior to taking. Patient verbalized understanding of potential risks, and agrees with current treatment plan. Patient advised to medically contact physician/emergency personnel if any acute changes in condition occur. Vital Signs Temp 97.9 F 09/29/22 00:00 Pulse 82 09/29/22 00:00 Resp 17 09/29/22 00:00 BP 141/86 09/29/22 00:00 Pulse Ox 97 09/29/22 00:00 FiO2 Laboratory Results WBC 8.5 k/uL (3.8-10.6) 09/26/22 07: RBC 4.90 m/uL (4.30-5.90) 09/26/22 07: Hgb 15.8 gm/dL (13.0-17.5) 09/26/22 07: Hct 47.5 % (39.0-53.0) 09/26/22 07: MCV 97.0 fL (80.0-100.0) 09/26/22 07: MCH 32.3 pg (25.0-35.0) 09/26/22 07: MCHC 33.3 g/dL (31.0-37.0) 09/26/22: RDW 12.8 % (11.5-15.5) 09/26/22: Plt Count 333 k/uL (150-450) 09/26/22 07: MPV 6.8 09/26/22 07: Neutrophils % 58 % 09/26/22 07: Lymphocytes % 31 % 09/26/22 07: Monocytes % 7 % 09/26/22 07:23 Eosinophils % 2 % 09/26/22 07:23 Basophils % 1 % 09/26/22 07:23 Neutrophils # 4.9 k/uL (1.3-7.7) 09/26/22 07: Lymphocytes # 2.6 k/uL (1.0-4.8) 09/26/22 07:23 Monocytes # 0.6 k/uL (0-1.0) 09/26/22 07: Eosinophils # 0.2 k/uL (0-0.7) 09/26/22 07: Basophils # 0.1 k/uL (0-0.2) 09/26/22 07:23 Sodium 142 mmol/L (137-145) 09/26/22 07: Potassium 4.9 mmol/L (3.5-5.1) 09/26/22 07: Chloride 104 mmol/L (98-107) 09/26/22 07:23 Carbon Dioxide 33 mmol/L (22-30) H 09/26/22 07:23 Anion Gap 5 mmol/L 09/26/22 07:23 BUN 22 mg/dL (9-20) H 09/26/22 07:23 Creatinine 1.30 mg/dL (0.66-1.25) H 09/26/22 07:23 Est GFR (CKD-EPI)AfAm 69 (>60 ml/min/1.73 sqM) 09/26/22 07:23 Est GFR (CKD-EPI)NonAf 60 (>60 ml/min/1.73 sqM) 09/26/22 07: Glucose 93 mg/dL (74-99) 09/26/22 07: Estimated Ave Glu mg/dL 112 09/26/22 07:23 Hemoglobin A1c 5.5 % (0.0-6.0) 09/26/22 07: Calcium 9.5 mg/dL (8.4-10.2) 09/26/22 07:23 Total Bilirubin 0.8 mg/dL (0.2-1.3) 09/26/22 07:23 Conjugated Bilirubin 0.0 mg/dL (0.0-0.3) 09/26/22 07: Unconjugated Bilirubin 0.5 mg/dL (0.0-1.1) 09/26/22 07:23 Delta Bilirubin 0.3 mg/dL (0.0-0.2) H 09/26/22 07:23 AST 34 U/L (17-59) 09/26/22 07: ALT 17 U/L (4-49) 09/26/22 07:23 Alkaline Phosphatase 79 U/L (38-126) 09/26/22 07:23 Total Protein 7.6 g/dL (6.3-8.2) 09/26/22 07: Albumin 4.7 g/dL (3.5-5.0) 09/26/22 07: Triglycerides 66.80 mg/dL (0.00-149.00) 09/26/22 07: Cholesterol 167.00 mg/dL (0.00-200.00) 09/26/22 07: LDL Cholesterol, Calc 110.6 mg/dL (0.0-131.0) 09/26/22 07: VLDL Cholesterol, Calc 13.36 mg/dL (5.00-40.00) 09/26/22: HDL Cholesterol 43.00 mg/dL (40.00-60.00) 09/26/22 07: Cholesterol/HDL Ratio 3.88 Ratio 09/26/22 07: TSH 27.400 mIU/L (0.465-4.680) H 09/26/22 07: Urine Color Yellow 09/25/22 01:59 Urine Appearance Clear (Clear) 09/25/22 01:59 Urine pH 5.5 (5.0-8.0) 09/25/22 01:59 Ur Specific [place] 1.027 (1.001-1.035) 09/25/22 01:59 Urine Protein 1+ (Negative) H 09/25/22 01:59 Urine Glucose (UA) Negative (Negative) 09/25/22 01:59 Urine Ketones Negative (Negative) 09/25/22 01:59 Urine Blood Negative (Negative) 09/25/22 01:59 Urine Nitrite Negative (Negative) 09/25/22 01:59 Urine Bilirubin Negative (Negative) 09/25/22 01:59 Urine Urobilinogen 3.0 mg/dL (<2.0) 09/25/22 01:59 Ur Leukocyte Esterase Negative (Negative) 09/25/22 01:59 Urine RBC 2 /hpf (0-5) 09/25/22 01:59 Urine WBC 2 /hpf (0-5) 09/25/22 01:59 Urine Bacteria Rare /hpf (None) H 09/25/22 01:59 Hyaline Casts 132 /lpf (0-2) H 09/25/22 01:59 Urine Mucus Occasional /hpf (None) H 09/25/22 01:59 Urine Opiates Screen Not Detected (NotDetected) 09/25/22 01:59 Ur Oxycodone Screen Not Detected (NotDetected) 09/25/22 01:59 Urine Methadone Screen Not Detected (NotDetected) 09/25/22 01:59 Ur Propoxyphene Screen Not Detected (NotDetected) 09/25/22 01:59 Ur Barbiturates Screen Not Detected (NotDetected) 09/25/22 01:59 U Tricyclic Antidepress Detected (NotDetected) H 09/25/22 01:59 Ur Phencyclidine Scrn Not Detected (NotDetected) 09/25/22 01:59 Ur Amphetamines Screen Not Detected (NotDetected) 09/25/22 01:59 U Methamphetamines Scrn Not Detected (NotDetected) 09/25/22 01:59 U Benzodiazepines Scrn Detected (NotDetected) H 09/25/22 01:59 Urine Cocaine Screen Not Detected (NotDetected) 09/25/22 01:59 U Marijuana (THC) Screen Detected (NotDetected) H 09/25/22 01:59 Coronavirus (PCR) Not Detected (Not Detectd) 09/25/22 01:59 Allergies Allergy/AdvReac Type Severity Reaction Status Date / Time No Known Allergies Allergy Verified 09/25/22 03:14 Patient Condition at Discharge: Stable Plan - Discharge Summary Discharge Rx Participant: Yes New Discharge Prescriptions: New fluPHENAZine [Prolixin] 3 mg PO BID 15 Days #180 tab carBAMazepine [TEGretol XR] 100 mg PO DAILY 30 Days #30 tab Sertraline [Zoloft] 50 mg PO DAILY 30 Days #30 tab Continue clonazePAM [KlonoPIN] 1 mg PO BID PRN #30 tab PRN Reason: Anxiety HYDROcodone/APAP 7.5-325MG [[place] 7.5-325] 1 each PO Q6HR PRN PRN Reason: Pain Gabapentin [Neurontin] 300 mg PO BID #14 cap Levothyroxine Sodium [Synthroid] 100 mcg PO DAILY@0630 #7 tab hydrOXYzine pamoate [Vistaril] 25 mg PO DAILY #7 cap hydrOXYzine pamoate [Vistaril] 50 mg PO HS #7 cap Ondansetron [Zofran] 4 mg PO Q8HR PRN #5 tab PRN Reason: Nausea Discontinued Sertraline [Zoloft] 100 mg PO DAILY #7 tab OLANZapine [ZyPREXA] 20 mg PO HS #7 tab Discharge Medication List clonazePAM [KlonoPIN] 1 mg PO BID PRN #30 tab 08/27/14 [Rx] HYDROcodone/APAP 7.5-325MG [[place] 7.5-325] 1 each PO Q6HR PRN 03/15/15 [History] Gabapentin [Neurontin] 300 mg PO BID #14 cap 03/20/15 [Rx] Levothyroxine Sodium [Synthroid] 100 mcg PO DAILY@0630 #7 tab 03/20/15 [Rx] hydrOXYzine pamoate [Vistaril] 25 mg PO DAILY #7 cap 03/20/15 [Rx] hydrOXYzine pamoate [Vistaril] 50 mg PO HS #7 cap 03/20/15 [Rx] Ondansetron [Zofran] 4 mg PO Q8HR PRN #5 tab 09/10/18 [Rx] Sertraline [Zoloft] 50 mg PO DAILY 30 Days #30 tab 09/29/22 [Rx] carBAMazepine [TEGretol XR] 100 mg PO DAILY 30 Days #30 tab 09/29/22 [Rx] fluPHENAZine [Prolixin] 3 mg PO BID 15 Days #180 tab 09/29/22 [Rx] Follow up Appointment(s)/Referral(s): [facility] [Outside] - 10/02/22 10:00 am (10/02/2022 10:00AM - 11:00AM [facility]ER[facility] MORGAN 10/06/2022 11:00AM - 11:30AM [facility] ) Mikhail Baker MD [Primary Care Provider] - 1-2 days Patient Instructions/Handouts: How to Stop Smoking (DC), Psychotic Disorder (DC) Activity/Diet/Wound Care/Special Instructions: Avoid the use of street drugs and alcohol. Take all medications as prescribed. When you are in need of refills on your medications, please contact your medical provider and/or outpatient psychiatrist to have this done. Please go to scheduled outpatient appointments for aftercare treatment. If symptoms return or become worse, call the crisis line at and/or go to the nearest emergency room for evaluation. Discharge Disposition: HOME SELF-CARE
--- NOTE | 2022-09-30 20:27 | PN ---
PROGRESS NOTE CHIEF COMPLAINT: Schizophrenia. HISTORY OF PRESENT ILLNESS: This gentleman is doing well. He denies any headaches, chest pain, shortness of breath, abdominal pain, etc. PHYSICAL EXAMINATION: HEENT: Head ears, eyes, nose, mouth and throat are normal. CHEST: Clear. CARDIAC: Normal. ABDOMEN: Soft, nontender. IMPRESSION: 1. Schizophrenia. 2. History of tobacco abuse. PLAN: No change in program at this time. MMODL / IJN: [id number] /
== END 2022-09-29 12:25 | disposition home or self-care (01) | DRG 750 ==
LOC: EC 23:08 → 3MHU 09-25 02:27
PROVIDERS: ADMIT Psychiatry & Neurology Psychiatry; ATTEND Psychiatry & Neurology Psychiatry
DX: F25.0 Schizoaffective disorder, bipolar type (principal); F12.90 Cannabis use, unspecified, uncomplicated; F17.200 Nicotine dependence, unspecified, uncomplicated; Z79.890 Hormone replacement therapy; Z79.899 Other long term (current) drug therapy; Z81.8 Family history of other mental and behavioral disorders; Z20.822 Contact with and (suspected) exposure to COVID-19
CPT/HCPCS: 80053; 80061; 80306; 81001; 82075; 82248; 83036; 84443; 85025; 87635; 96372; 99285

== ENCOUNTER 2022-10-30 23:08 | Inpatient (IN) | payer MEDICAID, OTHER ==
--- NOTE | 2022-10-30 23:48 | ED ---
Psych HPI - General Chief Complaint: Psychiatric Symptoms Stated Complaint: mental health Time Seen by Provider: 10/30/22 23:31 Source: patient, RN notes reviewed, old records reviewed Mode of arrival: ambulatory - History of Present Illness Initial Comments: 62-year-old male presents alert and oriented with complaints of racing thoughts and inability to sleep for the past couple of days. States he was hospitalized here in mental health unit 3 weeks ago and had his medications lowered which he believes is the cause of his symptoms. States that they also did not represcrib ed his Synthroid and he has not had any of that medication since discharge. Patient denies any homicidal or suicidal thoughts. Denies any alcohol use. Does smoke marijuana occasionally. MD Complaint: other (racing thoughts and inability to sleep) -: days(s) (2) Associated Psychiatric Symptoms: racing thoughts Quality: constant, getting worse Treatments Prior to Arrival: none - Related Data Home Medications Medication Instructions Recorded Confirmed HYDROcodone/APAP 7.5-325MG [[place] 1 tab PO DAILY PRN 03/15/15 10/31/22 7.5-325] Atorvastatin [Lipitor] 40 mg PO DAILY 10/31/22 10/31/22 Ergocalciferol [Vitamin D2 (1250 1,250 mcg PO Q30D 10/31/22 10/31/22 Mcg = 72012 Iu)] LORazepam [Ativan] 2 mg PO TID PRN 10/31/22 10/31/22 Levothyroxine Sodium [Synthroid] 200 mcg PO DAILY 10/31/22 10/31/22 Losartan [Cozaar] 25 mg PO DAILY 10/31/22 10/31/22 carBAMazepine [TEGretol XR] 200 mg PO DAILY 10/31/22 10/31/22 fluPHENAZine [Prolixin 5MG] 5 mg PO BID 10/31/22 10/31/22 Previous Rx's Medication Instructions Recorded Sertraline [Zoloft] 50 mg PO DAILY 30 Days #30 tab 09/29/22 Allergies Allergy/AdvReac Type Severity Reaction Status Date / Time No Known Allergies Allergy Verified 10/31/22 13:08 Review of Systems ROS Statement: Those systems with pertinent positive or pertinent negative responses have been documented in the HPI. ROS Other: All systems not noted in ROS Statement are negative. Past Medical History Past Medical History: No Reported History Additional Past Medical History / Comment(s): hepatits c History of Any Multi-Drug Resistant Organisms: None Reported Past Surgical History: Appendectomy, Hernia Repair Additional Past Surgical History / Comment(s): 2 Hernia Repairs Past Anesthesia/Blood Transfusion Reactions: No Reported Reaction Past Psychological History: Anxiety, Bipolar, Schizophrenia Smoking Status: Current every day smoker Past Alcohol Use History: None Reported Past Drug Use History: None Reported General Exam General appearance: alert, in no apparent distress Head exam: Present: atraumatic, normocephalic Eye exam: Present: normal appearance. Absent: scleral icterus, conjunctival injection, periorbital swelling ENT exam: Present: mucous membranes moist Neck exam: Present: full ROM. Absent: tenderness, meningismus Respiratory exam: Present: normal lung sounds bilaterally. Absent: respiratory distress, accessory muscle use Cardiovascular Exam: Present: regular rate GI/Abdominal exam: Present: soft Neurological exam: Present: alert Psychiatric exam: Present: normal affect, normal mood. Absent: homicidal ideation, suicidal ideation Skin exam: Present: warm, dry, normal color. Absent: cyanosis, diaphoretic, petechiae, pallor Course Vital Signs 10/30/22 10/31/22 23:14 05:11 Temperature 98 F 97.2 F L Pulse Rate 70 Pulse Rate [ 68 Right Pulse Oximetery] Respiratory 18 18 Rate Blood Pressure 172/92 Blood Pressure 138/82 [Right Arm] O2 Sat by Pulse 98 98 Oximetry Medical Decision Making - Medical Decision Making TSH greater than 100. He states has not had his levothyroxine since discharge last month. EPS nurse did speak with patient and states patient will be admitted to the hospital. My attending Dr. Carroll Was pt. sent in by a medical professional or institution (, PA, CARE TRANSITIONS MANAGER, urgent care, hospital, or snf...) When possible be specific @ -No Did you speak to anyone other than the patient for history (EMS, parent, family, police, friend...)? What history was obtained from this source @ -No Did you review nursing and triage notes (agree or disagree)? Why? @ -I reviewed and agree with nursing and triage notes Were old charts reviewed (outside hosp., previous admission, EMS record, old EKG, old radiological studies, urgent care reports/EKG's, snf records)? Report findings @ -No old charts were reviewed Differential Diagnosis (chest pain, altered mental status, abdominal pain women, abdominal pain men, vaginal bleeding, weakness, fever, dyspnea, syncope, headache, dizziness, GI bleed, back pain, seizure, CVA, palpatations, mental health, musculoskeletal)? @ -Differential Mental Health Depression, anxiety, bipolar, psychosis, schizophrenia, borderline personality, situational depression, adjustment disorder, behavioral disorder, brain tumor, malingering, substance abuse, encephalopathy, medication reaction, dementia, hypothyroidism, degenerative neurologic disorder, lupus.... This is not all- inclusive list EKG interpreted by me (3pts min.). @ -n/a X-rays interpreted by me (1pt min.). @ -None done CT interpreted by me (1pt min.). @ -None done U/S interpreted by me (1pt. min.). @ -None done What testing was considered but not performed or refused? (CT, X-rays, U/S, labs)? Why? @ -None What meds were considered but not given or refused? Why? @ -None Did you discuss the management of the patient with other professionals (professionals i.e. , PA, CARE TRANSITIONS MANAGER, lab, RT, psych nurse, high school social studies tutor, physician extender, teacher, loan workout officer, casework specialist)? Give summary @ -EPS nurse recommends admission Was smoking cessation discussed for >3mins.? @ -No Was critical care preformed (if so, how long)? @ -No Were there social determinants of health that impacted care today? How? (Homelessness, low income, unemployed, alcoholism, drug addiction, transportation, low edu. Level, literacy, decrease access to med. care, [facility], rehab)? @ -No Was there de-escalation of care discussed even if they declined (Discuss DNR or withdrawal of care, Hospice)? DNR status @ -No What co-morbidities impacted this encounter? (DM, HTN, Smoking, COPD, CAD, Cancer, CVA, ARF, Chemo, Hep., AIDS, mental health diagnosis, sleep apnea, morbid obesity)? @ -Mental illness Was patient admitted / discharged? Hospital course, mention meds given and route, prescriptions, significant lab abnormalities, going to OR and other pertinent info. @ -Admitted Undiagnosed new problem with uncertain prognosis? @ -No Drug Therapy requiring intensive monitoring for toxicity (Heparin, Nitro, Insulin, Cardizem)? @ -No Were any procedures done? @ -No Diagnosis/symptom? @ -Adjustment reaction, racing thoughts, hypothyroidism Acute, or Chronic, or Acute on Chronic? @ -acute Uncomplicated (without systemic symptoms) or Complicated (systemic symptoms)? @ -Complicated Side effects of treatment? @ -No Exacerbation, Progression, or Severe Exacerbation? @ -No Poses a threat to life or bodily function? How? (Chest pain, USA, OR, pneumonia, PE, COPD, DKA, ARF, appy, cholecystitis, CVA, Diverticulitis, Homicidal, Suici christine, threat to staff... and all critical care pts) @ -No - Lab Data Result diagrams: 10/31/22 07:28 Lab Results 10/30/22 10/31/22 Range/Units 23:59 02:04 Sodium 139 (137-145) mmol/L Potassium 4.1 (3.5-5.1) mmol/L Chloride 105 (98-107) mmol/L Carbon Dioxide 23 (22-30) mmol/L Anion Gap 11 mmol/L BUN 14 (9-20) mg/dL Creatinine 1.09 (0.66-1.25) mg/dL Est GFR (CKD-EPI)AfAm 85 (>60 ml/min/1.73 sqM) Est GFR (CKD-EPI)NonAf 73 (>60 ml/min/1.73 sqM) Glucose 91 (74-99) mg/dL Calcium 9.4 (8.4-10.2) mg/dL Total Bilirubin 0.4 (0.2-1.3) mg/dL AST 31 (17-59) U/L ALT 22 (4-49) U/L Alkaline Phosphatase 77 (38-126) U/L Total Protein 7.6 (6.3-8.2) g/dL Albumin 4.8 (3.5-5.0) g/dL TSH >100.000 H (0.465-4.680) mIU/L Free T4 0.29 L (0.78-2.19) ng/dL Coronavirus (PCR) Not Detected (Not Detectd) Disposition Clinical Impression: Hypothyroidism, Adjustment reaction of adult life Disposition: ADMITTED IP TO THIS HOSP Decision Date: 10/31/22
[2022-10-31 00:21] LABS: ALT 22 U/L (4-49); AST 31 U/L (17-59); African American GFR (CKD) 85 (>60 ml/min/1.73 sqM); Albumin 4.8 g/dL (3.5-5.0); Alkaline Phosphatase 77 U/L (38-126); Anion Gap 11 mmol/L; Blood Urea Nitrogen 14 mg/dL (9-20); Calcium 9.4 mg/dL (8.4-10.2); Carbon Dioxide 23 mmol/L (22-30); Chloride 105 mmol/L (98-107); Glucose 91 mg/dL (74-99); Non-African American GFR(CKD) 73 (>60 ml/min/1.73 sqM); Potassium 4.1 mmol/L (3.5-5.1); Sodium 139 mmol/L (137-145); Total Bilirubin 0.4 mg/dL (0.2-1.3); Total Protein 7.6 g/dL (6.3-8.2)
[2022-10-31 01:52] LABS: T4, Free (Free Thyroxine) 0.29 ng/dL (0.78-2.19)
[2022-10-31] MEDS ORDERED: ALPRAZolam 0.5 MG TAB PO STA (02:05)
[2022-10-31] MEDS ORDERED: MAG HYDROX/AL HYDROX/SIMETH 30 ML CUP PO PRN (03:59)
[2022-10-31] MEDS ORDERED: hydrOXYzine HCL 50 MG/ML 1 ML VIAL IM PRN (03:59)
[2022-10-31] MEDS ORDERED: MAGNESIUM HYDROXIDE 2,400 MG/10 ML CUP PO PRN (03:59)
[2022-10-31] MEDS ORDERED: HALOPERIDOL LACTATE 5 MG/ML 1 ML VIAL IM PRN (03:59)
[2022-10-31] MEDS ORDERED: ACETAMINOPHEN TAB 325 MG TAB PO PRN (03:59)
[2022-10-31] MEDS: LEVOTHYROXINE 100 MCG TAB PO SCH (05:37)
[2022-10-31] MEDS: hydrOXYzine HCL 25 MG TAB PO PRN ×2 (05:37→21:35)
[2022-10-31 07:58] LABS: Albumin 3.9 g/dL (3.5-5.0); Calcium 8.7 mg/dL (8.4-10.2); Potassium 4.3 mmol/L (3.5-5.1); Total Bilirubin 0.4 mg/dL (0.2-1.3); Total Protein 6.3 g/dL (6.3-8.2)
[2022-10-31] MEDS: carBAMazepine 100 MG TAB.ER.12H PO SCH (08:21)
[2022-10-31] MEDS: NICOTINE 14MG/24HR PATCH TRANSDERM SCH ×2 (08:23→15:34)
[2022-10-31] MEDS ORDERED: SERTRALINE 50 MG TAB PO SCH (09:00)
[2022-10-31 11:11] VITALS: BMI 26.3
--- NOTE | 2022-10-31 13:47 | P.MDCNMH ---
History of Present Illness H&P Date: 10/31/22 History of present illness; patient is a 62-year-old gentleman with past medical significant for schizophrenia and hypothyroidism admitted to the ER because of inability to sleep and racing thoughts for last few days. Patient was admitted to the mental health unit a few weeks ago when his medications were adjusted. At this time patient denies any auditory or visual hallucinations. Denies any suicidal thoughts. Continues to complain of poor sleep. States he has a special collection with [employer] Lab work done in the ER showed sodium 140, potassium 4.3, BUN 13, creatinine 1.2 LFTs were normal. Patient was admitted to inpatient psych for further evaluation and treatment REVIEW OF SYSTEMS: CONSTITUTIONAL: No fever, no malaise, no fatigue. HEENT: No recent visual problems or hearing problems. Denied any sore throat. CARDIOVASCULAR: No chest pain, orthopnea, PND, no palpitations, no syncope. PULMONARY: No shortness of breath, no cough, no hemoptysis. GASTROINTESTINAL: No diarrhea, no nausea, no vomiting, no abdominal pain. NEUROLOGICAL: No headaches, no weakness, no numbness. HEMATOLOGICAL: Denies any bleeding or petechiae. GENITOURINARY: Denies any burning micturition, frequency, or urgency. MUSCULOSKELETAL/RHEUMATOLOGICAL: Denies any joint pain, swelling, or any muscle pain. ENDOCRINE: Denies any polyuria or polydipsia. The rest of the 14-point review of systems is negative. PHYSICAL EXAMINATION: GENERAL: The patient is alert and oriented x3, not in any acute distress. Well developed, well nourished. HEENT: Pupils are round and equally reacting to light. EOMI. No scleral icterus. No conjunctival pallor. Normocephalic, atraumatic. No pharyngeal erythema. No thyromegaly. CARDIOVASCULAR: S1 and S2 present. No murmurs, rubs, or gallops. PULMONARY: Chest is clear to auscultation, no wheezing or crackles. ABDOMEN: Soft, nontender, nondistended, normoactive bowel sounds. No palpable organomegaly. MUSCULOSKELETAL: No joint swelling or deformity. EXTREMITIES: No cyanosis, clubbing, or pedal edema. NEUROLOGICAL: Gross neurological examination did not reveal any focal deficits. SKIN: No rashes. Assessment and plan Schizophrenia Hypothyroidism Plan; Monitor vital signs elopement Precautions Resume Synthroid Continue psych meds per psychiatry Past Medical History Past Medical History: No Reported History Additional Past Medical History / Comment(s): hepatits c History of Any Multi-Drug Resistant Organisms: None Reported Past Surgical History: Appendectomy, Hernia Repair Additional Past Surgical History / Comment(s): 2 Hernia Repairs Past Anesthesia/Blood Transfusion Reactions: No Reported Reaction Past Psychological History: Anxiety, Bipolar, Schizophrenia Smoking Status: Current every day smoker Past Alcohol Use History: None Reported Past Drug Use History: None Reported Additional Drug Use History / Comment(s): Pt admits to smoking marijuana 1- 2/week. Medications and Allergies Home Medications Medication Instructions Recorded Confirmed Type HYDROcodone/APAP 7.5-325MG [[place] 1 tab PO DAILY PRN 03/15/15 10/31/22 History 7.5-325] Sertraline [Zoloft] 50 mg PO DAILY 30 Days #30 tab 09/29/22 10/31/22 Rx Atorvastatin [Lipitor] 40 mg PO DAILY 10/31/22 10/31/22 History Ergocalciferol [Vitamin D2 (1250 1,250 mcg PO Q30D 10/31/22 10/31/22 History Mcg = 22427 Iu)] LORazepam [Ativan] 2 mg PO TID PRN 10/31/22 10/31/22 History Levothyroxine Sodium [Synthroid] 200 mcg PO DAILY 10/31/22 10/31/22 History Losartan [Cozaar] 25 mg PO DAILY 10/31/22 10/31/22 History carBAMazepine [TEGretol XR] 200 mg PO DAILY 10/31/22 10/31/22 History fluPHENAZine [Prolixin 5MG] 5 mg PO BID 10/31/22 10/31/22 History Allergies Allergy/AdvReac Type Severity Reaction Status Date / Time No Known Allergies Allergy Verified 10/31/22 13:08 Physical Exam Vitals: Vital Signs Temp Pulse Pulse Resp BP BP Pulse Ox 10/31/22 05:11 97.2 F L 68 18 138/82 98 10/30/22 23:14 98 F 70 18 172/92 98 Intake and Output 10/30/22 10/31/22 10/31/22 22:59 06:59 14:59 Other: Weight 88.1 kg Cranial Nerve Examination - Cranial Nerves Cranial Nerve I- Olfactory: Intact Cranial Nerve II- Optic: Intact Cranial Nerve III- Oculomotor: Intact (Cranial nerves II through XII intact) Cranial Nerve IV- Trochlear: Intact Cranial Nerve V- Trigeminal: Intact Cranial Nerve - Abducens: Intact Cranial Nerve VII- Facial: Intact Cranial Nerve VIII- Auditory: Intact Cranial Nerve IX- Glossopharyngeal: Intact Cranial Nerve X- Vagus: Intact Cranial Nerve XI- Accessory: Intact Cranial Nerve XII- Hypoglossal: Intact Results CBC & Chem 7: 10/31/22 07:28 Labs: Abnormal Lab Results - Last 24 Hours (Table) 10/30/22 10/31/22 Range/Units 23:59 07:28 Carbon Dioxide 31 H (22-30) mmol/L TSH >100.000 H (0.465-4.680) mIU/L Free T4 0.29 L (0.78-2.19) ng/dL
--- NOTE | 2022-10-31 13:57 | P.HP ---
Psychiatric H&P - . H&P Date: 10/31/22 History & Physical: Allergies Allergy/AdvReac Type Severity Reaction Status Date / Time No Known Allergies Allergy Verified 10/31/22 07:58 Vital Signs Temp 97.2 F L 10/31/22 05:11 Pulse 75 10/31/22 08:00 Resp 16 10/31/22 08:00 BP 155/87 10/31/22 08:00 Pulse Ox 94 L 10/31/22 08:00 FiO2 Intake & Output 10/30/22 10/31/22 10/31/22 18:59 06:59 18:59 Weight 88.1 kg 88.1 kg Laboratory Last Values Sodium 140 mmol/L (137-145) 10/31/22 07:28 Potassium 4.3 mmol/L (3.5-5.1) 10/31/22 07:28 Chloride 105 mmol/L (98-107) 10/31/22 07:28 Carbon Dioxide 31 mmol/L (22-30) H 10/31/22 07:28 Anion Gap 4 mmol/L 10/31/22 07:28 BUN 13 mg/dL (9-20) 10/31/22 07:28 Creatinine 1.20 mg/dL (0.66-1.25) 10/31/22 07:28 Est GFR (CKD-EPI)AfAm 76 (>60 ml/min/1.73 sqM) 10/31/22 07:28 Est GFR (CKD-EPI)NonAf 66 (>60 ml/min/1.73 sqM) 10/31/22 07:28 Glucose 93 mg/dL (74-99) 10/31/22 07:28 Calcium 8.7 mg/dL (8.4-10.2) 10/31/22 07:28 Total Bilirubin 0.4 mg/dL (0.2-1.3) 10/31/22 07:28 AST 25 U/L (17-59) 10/31/22 07:28 ALT 21 U/L (4-49) 10/31/22 07:28 Alkaline Phosphatase 64 U/L (38-126) 10/31/22 07:28 Total Protein 6.3 g/dL (6.3-8.2) 10/31/22 07:28 Albumin 3.9 g/dL (3.5-5.0) 10/31/22 07:28 TSH >100.000 mIU/L (0.465-4.680) H 10/30/22 23:59 Free T4 0.29 ng/dL (0.78-2.19) L 10/30/22 23:59 Coronavirus (PCR) Not Detected (Not Detectd) 10/31/22 02:04 10/31/22 12:04 IDENTIFYING DATA: Patient is a single, unemployed, 62-year-old [place] male who is presenting with suicidal ideation and psychosis HPI: Patient was most recently on our unit from 09/25/2022 until 09/29/2022. At the time, he was discharged on Prolixin 3 mg twice a day, Tegretol-XR 100 mg daily, and Zoloft 50 mg daily. Per EPS report, patient said "I'm gonna go get something from someone; I don't care who. I'm on the [place] and it's going down" and reported hearing "gutteral indescribable evil things." Patient stated he has been following up with his [facility] appointments (per [facility], pt's last appt was 10/13/2022). Patient is currently on Prolixin 5 mg twice a day, Tegretol-XR 200 mg daily, Zoloft 50 mg daily, and Ativan 2 mg 3 times a day when necessary. Patient states that prior to calling 911, he had been having trouble sleeping for 3-4 days and having racing thoughts. He denies other symptoms of coral, but rather described that his mood was "terrible" because he was thinking of "everything". He describes the feeling as being too much to tolerate. He reports having decreased energy and poor appetite. He admits to being noncompliant with his outpatient medications. He believes that he has "leg jerks "sometimes due to Prolixin. Therefore, he states that he takes this once a day or none at all sometimes. Patient is rather fixated on being on Ativan or Xanax. He requests to be placed on this repeatedly to help him with sleep at night. He reports taking Ativan at night and denies taking it during daytime. He reports no current auditory hallucinations or paranoia, or delusions. He denies visual hallucinations. He denies suicidal and homicidal ideation, as asked and assessed. PAST PSYCHIATRIC HISTORY: Patient has a history of schizoaffective disorder, bipolar type. His home medications prior to this admission included Trileptal, Zyprexa, and Zoloft. Review of his previous admissions back in 2014 revealed being on the same regimen as well as Klonopin, gabapentin, and Vistaril. Patient is unable to identify all his psychiatric admissions however he has been admitted to our psychiatric unit 3 times in 2022, 2014 and once in 2013. The patient is open with [facility]. The patient reported that he has been previously trialed on Thorazine and vehemently hated this medication. Patient was most recently on our unit from 09/25/2022 until 09/29/2022. At the time, he was discharged on Prolixin 3 mg twice a day, Tegretol-XR 100 mg daily, and Zoloft 50 mg daily. PMH: Past Medical History: No Reported History Additional Past Medical History / Comment(s): hepatits c History of Any Multi-Drug Resistant Organisms: None Reported Past Surgical History: Appendectomy, Hernia Repair Additional Past Surgical History / Comment(s): 2 Hernia Repairs Past Anesthesia/Blood Transfusion Reactions: No Reported Reaction Past Psychological History: Anxiety, Bipolar, Depression Past Alcohol Use History: None Reported Past Drug Use History: None Reported ALLERGIES: NO KNOWN DRUG ALLERGIES CHEMICAL DEPENDENCY HISTORY: Patient currently reports that he does not drink alcohol. He endorses smoking 6 cigarettes daily. He reports using cannabis occasionally. He denies other substance use. FAMILY PSYCHIATRIC/SUBSTANCE USE HISTORY: As per chart review, the patient's maternal aunt and the patient's brother have been both diagnosed with schizophrenia SOCIAL HISTORY: Patient states that he lives by himself and that services through community mental health help him with his activities of daily living. He reports never having been and no children. He denies any current unemployment and states that he receives Social Security income. MENTAL STATUS EXAM: General Appearance: Patient appears to be stated age is alert, directable and cooperative. Patient appears to have slightly disheveled hygiene and grooming. Behavior: No psychomotor agitation. Relaxed Speech: Patient's speech is regular rate and intonation, loud volume Mood/Affect: Patient reports their mood is "terrible", Affect is congruent Suicidality/Homicidality: Denies suicidal and homicidal ideation Perceptions: Denies auditory and visual hallucinations Though content/process: Largely goal oriented and concrete Memory and concentration: Fair to interview Judgment and insight: Poor STRENGTHS/WEAKNESSES: Strengths are attempts at treatment engagement. Weakness is noncompliance with treatment. INTELLECT: average IMPRESSIONS: Schizoaffective disorder, bipolar type, currently mixed PLAN: -Patient has current active treatment order which expires 03/27/2023 -Medications : Continue Prolixin 5 mg by mouth twice a day for mood stabilization/psychosis (per [facility]). Will consider changing to another antipsychotic if experiencing notable side effects Decrease Tegretol XR to 100 mg daily Stop Zoloft 50 mg daily due to hx of coral Ativan taper to 1 mg BID today (since patient reports taking this only at night) -Haldol, Vistaril for agitation/aggression -Patient was informed of the risks, benefits and side effects of the medication and patient verbally consented to taking the medications. -Internal Medicine consult to perform medical evaluation and physical. -NRT - nicotine patch - on board for discharge planning. Encourage patient to participate in groups to work on coping skills. 10/31/22 13:32 10/31/22 13:42 10/31/22 13:56
[2022-10-31] MEDS: LORazepam 1 MG TAB PO SCH (21:34)
[2022-10-31] MEDS: haloperidoL 5 MG TAB PO PRN (21:36)
[2022-11-01] MEDS: LEVOTHYROXINE 100 MCG TAB PO SCH (06:55)
[2022-11-01] MEDS: NICOTINE 14MG/24HR PATCH TRANSDERM SCH (08:02)
[2022-11-01] MEDS: LORazepam 1 MG TAB PO SCH ×2 (08:02→21:39)
[2022-11-01] MEDS: carBAMazepine 100 MG TAB.ER.12H PO SCH (08:03)
--- NOTE | 2022-11-01 13:28 | P.PN ---
Progress Note - Text Progress Note Date: 11/01/22 Interval History: Patient was seen wandering the hallways and was directable and agreeable to speak with commercial real estate underwriter in the office. He states that he is feeling "much better". Patient appears to be speaking with a lot of people outside and walking on the milieu. He states that he slept better last night after having received Vistaril. He is agreeable with being on melatonin. He states that his thoughts are currently at a rapidity of 5 out of 10 with 10 being the highest. Patient remarked that his medications were lowered but was agreeable with taking them as prescribed. At this time patient denies any suicidal or homicidal ideations, intent or plan. Patient denies any auditory, visual hallucinations and denies any paranoia or delusions. Patient denies any side effects from the medications and has been compliant with meds. Mental Status Exam: General Appearance: Patient appears to be stated age is alert, directable and cooperative. Patient appears to have slightly disheveled hygiene and grooming. Behavior: No psychomotor agitation. Relaxed Speech: Patient's speech is regular rate and intonation, loud volume Mood/Affect: Patient reports their mood is "much better", Affect is congruent Suicidality/Homicidality: Denies suicidal and homicidal ideation Perceptions: Denies auditory and visual hallucinations Though content/process: Largely goal oriented and concrete Memory and concentration: Grossly oriented. Fair to interview Judgment and insight: Poor Assessment Schizoaffective disorder, bipolar type, currently mixed PLAN: -Patient has current active treatment order which expires 03/27/2023 -Medications : Continue Prolixin 5 mg by mouth twice a day for mood stabilization/psychosis Increase to home dose Tegretol XR 200 mg daily for mood Ativan 1 mg BID and taper to 1 mg daily for tomorrow. Do NOT recommend long-term treatment with benzodiazepines -Haldol, Vistaril for agitation/aggression -Patient was informed of the risks, benefits and side effects of the medication and patient verbally consented to taking the medications. -Internal Medicine consult to perform medical evaluation and physical. -NRT - nicotine patch -SW on board for discharge planning. Encourage patient to participate in groups to work on coping skills.
[2022-11-01] MEDS: MELATONIN 5 MG TABLET PO SCH (21:39)
[2022-11-01] MEDS: hydrOXYzine HCL 25 MG TAB PO PRN (21:40)
[2022-11-01] MEDS: haloperidoL 5 MG TAB PO PRN (21:40)
[2022-11-02] MEDS: LEVOTHYROXINE 100 MCG TAB PO SCH (06:09)
[2022-11-02] MEDS: NICOTINE 14MG/24HR PATCH TRANSDERM SCH (09:12)
[2022-11-02] MEDS: LOSARTAN 25 MG TAB PO SCH (09:14)
[2022-11-02] MEDS: LORazepam 1 MG TAB PO SCH (09:15)
--- NOTE | 2022-11-02 10:19 | P.PN ---
Progress Note - Text Progress Note Date: 11/02/22 Interval History: Patient was seen wandering the hallways and was directable and agreeable to speak with sign writer hand in the office. The patient is currently not reporting any suicidal or homicidal ideation, intention, and/or plan. He is not reporting any auditory or visual hallucinations. He reports no paranoia or other delusions. He is currently denying any racing thoughts, mood lability, or grandiosity. He continues to make statements regarding "having gigs" stating that he was upset with last hospitalization because it prevented him from going to his "gig." He does report episodes of insomnia which led up to this hospitalization. He does state however that he slept for 7 hours last night and it was a restful sleep. The patient does admit to heavy caffeine use. He reports drinking 1-3 pots of coffee per day. He was counseled at length on the importance of moderation. He was also counseled on abstaining from caffeine in the afternoon, evening, and night. Mental Status Exam: General Appearance: Patient appears to be stated age is alert, directable and cooperative. Patient appears to have slightly disheveled hygiene and grooming. Behavior: No psychomotor agitation. Relaxed Speech: Patient's speech is regular rate and intonation, loud volume Mood/Affect: Patient reports their mood is "much better", Affect is congruent and bright Suicidality/Homicidality: Denies suicidal and homicidal ideation Perceptions: Denies auditory and visual hallucinations Though content/process: Largely goal oriented and concrete Memory and concentration: Grossly oriented. Fair to interview Judgment and insight: Poor Vital Signs Temp 97.4 F L 11/02/22 06:10 Pulse 74 11/02/22 09:19 Resp 16 11/02/22 06:10 BP 159/87 11/02/22 09:19 Pulse Ox 97 11/02/22 06:10 FiO2 Intake & Output 11/01/22 11/02/22 11/02/22 18:59 06:59 18:59 Weight 89.4 kg Laboratory Results Sodium 140 mmol/L (137-145) 10/31/22 07:28 Potassium 4.3 mmol/L (3.5-5.1) 10/31/22 07:28 Chloride 105 mmol/L (98-107) 10/31/22 07:28 Carbon Dioxide 31 mmol/L (22-30) H 10/31/22 07:28 Anion Gap 4 mmol/L 10/31/22 07:28 BUN 13 mg/dL (9-20) 10/31/22 07:28 Creatinine 1.20 mg/dL (0.66-1.25) 10/31/22 07:28 Est GFR (CKD-EPI)AfAm 76 (>60 ml/min/1.73 sqM) 10/31/22 07:28 Est GFR (CKD-EPI)NonAf 66 (>60 ml/min/1.73 sqM) 10/31/22 07:28 Glucose 93 mg/dL (74-99) 10/31/22 07:[address] Glu mg/dL 117 10/31/22 07:28 Hemoglobin A1c 5.7 % (0.0-6.0) 10/31/22 07:28 Calcium 8.7 mg/dL (8.4-10.2) 10/31/22 07:28 Total Bilirubin 0.4 mg/dL (0.2-1.3) 10/31/22 07:28 AST 25 U/L (17-59) 10/31/22 07:28 ALT 21 U/L (4-49) 10/31/22 07:28 Alkaline Phosphatase 64 U/L (38-126) 10/31/22 07:28 Total Protein 6.3 g/dL (6.3-8.2) 10/31/22 07:28 Albumin 3.9 g/dL (3.5-5.0) 10/31/22 07:28 TSH >100.000 mIU/L (0.465-4.680) H 10/30/22 23:59 Free T4 0.29 ng/dL (0.78-2.19) L 10/30/22 23:59 Coronavirus (PCR) Not Detected (Not Detectd) 10/31/22 02:04 Assessment Schizoaffective disorder, bipolar type, currently mixed Caffeine abuse PLAN: -Patient has current active treatment order which expires 03/27/2023 -Medications : Continue Prolixin 5 mg by mouth twice a day for mood stabilization/psychosis Continue Tegretol XR 200 mg daily for mood Start Xanax 1 mg by mouth at bedtime when necessary for insomnia -Discussed at length concerns for caffeine use which may contribute to manic episodes and insomnia. -Haldol, Vistaril for agitation/aggression -Patient was informed of the risks, benefits and side effects of the medication and patient verbally consented to taking the medications. -Internal Medicine consult to perform medical evaluation and physical. -NRT - nicotine patch -SW on board for discharge planning. Encourage patient to participate in groups to work on coping skills.
[2022-11-02] MEDS ORDERED: ALPRAZolam 1 MG TAB PO SCH (21:00)
[2022-11-02] MEDS: MELATONIN 5 MG TABLET PO SCH (21:20)
[2022-11-03] MEDS: LEVOTHYROXINE 100 MCG TAB PO SCH (05:13)
[2022-11-03 05:47] VITALS: BP 144/88; PULSE 77; RESP 18; TEMP 98.1
--- NOTE | 2022-11-03 08:17 | PN ---
PROGRESS NOTE DATE OF SERVICE: 11/01/2022 CHIEF COMPLAINT: Recurrent schizophrenia. HISTORY OF PRESENT ILLNESS: This gentleman was brought back in to the hospital after he began to display psychotic behavior. REVIEW OF SYSTEMS: He is not complaining of any headaches, visual changes, chest pain, shortness of breath, abdominal pain, etc. PAST MEDICAL HISTORY, FAMILY HISTORY, PERSONAL AND SOCIAL HISTORIES: All otherwise unchanged from his last visit and outpatient visits. PHYSICAL EXAMINATION: CHEST: Clear. CARDIAC: Normal. ABDOMEN: Soft and nontender. NEUROLOGIC: He is awake and alert. IMPRESSION: 1. Acute psychosis. 2. Schizophrenia. 3. Chronic obstructive pulmonary disease. RECOMMENDATIONS: No changes in his psych management at this time. MMODL / IJN: [id number] /
[2022-11-03] MEDS: LORazepam 1 MG TAB PO SCH (08:39)
[2022-11-03] MEDS: LOSARTAN 25 MG TAB PO SCH (08:39)
[2022-11-03] MEDS: NICOTINE 14MG/24HR PATCH TRANSDERM SCH (09:28)
--- NOTE | 2022-11-03 13:14 | P.DS ---
Providers Date of admission: 10/31/22 03:33 Expected date of discharge: 11/03/22 Attending physician: Fausto Ledbetter MD Consults: 10/31/22 05:37 Consult Physician Routine Consulting Provider: Mikhail Baker Consult Reason/Comments: For H & P for Medical Follow Up Do you want consulting provider notified?: Yes, Notify in am Primary care physician: Mikhail Baker - Discharge Diagnosis(es) (1) Caffeine abuse Status: Acute Priority: High (2) Schizoaffective disorder, bipolar type Status: Acute Priority: Medium Hospital Course: Admission HPI: Initial psychiatric evaluation was completed by Dr. Betancur on 10/31/2022 who wrote: " Patient is a single, unemployed, 62-year-old Stateless male who is presenting with suicidal ideation and psychosis HPI: Patient was most recently on our unit from 09/25/2022 until 09/29/2022. At the time, he was discharged on Prolixin 3 mg twice a day, Tegretol-XR 100 mg daily, and Zoloft 50 mg daily. Per EPS report, patient said "I'm gonna go get something from someone; I don't care who. I'm on the [place] and it's going down" and reported hearing "gutteral indescribable evil things." Patient stated he has been following up with his [facility] appointments (per [facility], pt's last appt was 10/13/2022). Patient is currently on Prolixin 5 mg twice a day, Tegretol-XR 200 mg daily, Zoloft 50 mg daily, and Ativan 2 mg 3 times a day when necessary. Patient states that prior to calling 911, he had been having trouble sleeping for 3-4 days and having racing thoughts. He denies other symptoms of coral, but rather described that his mood was "terrible" because he was thinking of "everything". He describes the feeling as being too much to tolerate. He reports having decreased energy and poor appetite. He admits to being noncompliant with his outpatient medications. He believes that he has "leg jerks "sometimes due to Prolixin. Therefore, he states that he takes this once a day or none at all sometimes. Patient is rather fixated on being on Ativan or Xanax. He requests to be placed on this repeatedly to help him with sleep at night. He reports taking Ativan at night and denies taking it during daytime. He reports no current auditory hallucinations or paranoia, or delusions. He denies visual hallucinations. He denies suicidal and homicidal ideation, as asked and assessed." Hospital course: Upon admission to the unit patient was initially presenting as relaxed however with high volume speech and slightly disheveled hygiene. Patient was however directable and agreeable to commence treatment. Patient got along well with other patients on the unit and followed unit protocol. Patient was compliant with the medications and denied any side effects throughout hospital course. Patient's Zoloft was discontinued due to concerns for coral. He was continued on his Prolixin and Tegretol. Patient spoke of his stressors and engaged in therapy both group and individual. Patient was also seen by medical team for history and physical exam Throughout the course of the hospitalization patient gradually improved with regards to mood stability and sleep. He became future oriented with improved insight and judgment. On the day of discharge patient denied any suicidal or homicidal ideations intent or plan denied any auditory or visual hallucinations. Patient endorsed wanting to live for his health and family. The patient denied any access to guns or weapons. Patient denied any paranoia and did not endorse any delusions. Patient does have a significant history of substance abuse however was counseled on abstaining from all substances including tobacco, alcohol and marijuana. Furthermore, the patient does admit to heavy caffeine use. He was counseled at length that this may contribute to his manic episodes. He expressed and acknowledged understanding. Patient was offered however declined inpatient substance-abuse rehab. Patient was also counseled on the medications and need for regular compliance and was encouraged to follow-up with their outpatient appointment for mental health and also for primary care. Prior to discharge a family meeting will be arranged by manager social services to answer any questions and ensure safety upon discharge. On the day of discharge he is not reporting any medical issues or concerns. He denies any chest pain, shortness of breath, palpitations, lightheadedness, involuntary muscle movements, akathisia, or any other medical issues or concerns. Mental status exam: General Appearance: Patient appears to be stated age is alert, pleasant, and cooperative. Patient is in no acute distress and has fair hygiene and grooming Behavior: Patient is calmly seated without any agitated behavior. Speech: Patient's speech is fluent and nonpressured. Mood/Affect: Patient reports their mood is "much better", affect is congruent and euthymic to bright and friendly. Suicidality/Homicidality: Patient denies having any suicidal or homicidal ideation intent or plan. Perceptions: Patient denies any auditory or visual hallucinations. Though content/process: There is no evidence of any delusional thought content and thought process is linear and goal-directed. And is future oriented. Memory and concentration: AOX3, grossly intact for the purposes of this session. Can spell "WORLD" backwards correctly. Judgment and insight: Improved with guarded prognosis Impression: Schizoaffective disorder, bipolar type Caffeine abuse Plan: -Continue with discharge today as patient has improved and stabilized psychiatrically and is not currently an imminent threat to himself and/or others. Patient remain at chronically elevated risk due to the severity and chronicity of his mental illness. -Continue medications: Xanax 1 mg by mouth at bedtime for insomnia Prolixin 5 mg by mouth twice a day for mood stabilization/psychosis Tegretol-XR 200 mg by mouth daily for mood stabilization -Patient was counseled on the need for medication compliance and appropriate follow-up at mental health and also primary care for medical issues. Patient verbalized understanding and agreed. -Social work to arrange for and conduct family meeting to ensure safety upon discharge and answer any questions/concerns. Social work also to arrange for patients follow up appointments with [facility] for psychiatric care along with follow up with primary care provider. -Patient counseled on abstaining from tobacco, recreational drugs, marijuana and alcohol. Was informed/educated on the adverse effects on their physical and mental health. Patient verbally agreed and understood. Also counseled on caffeine abuse. -Patient was instructed to return to the hospital or seek immediate medical care if their psychiatric or medical symptoms do worsen or reoccur. -Psychoeducation and supportive therapy provided to patient. Risks and benefits of pharmacological treatment versus the risks and benefits of nontreatment weight and discussed. Informed consent discussion held. Common side effects of psychotropics discussed such as, but not limited to headache, GI disturbance, sexual dysfunction, movement disorders, sedation, and orthostatic hypotension. Life threatening and blackbox warnings of prescribed medications also discussed. Potential risks of operating a vehicle or heavy machinery discussed with patient at length. Advised on importance of compliance and a reliable and r esponsible manner. Patient advised to review FDA consumer labeling of all medications prior to taking. Patient verbalized understanding of potential risks, and agrees with current treatment plan. Patient advised to medically contact physician/emergency personnel if any acute changes in condition occur. Vital Signs Temp 98.1 F 11/03/22 05:46 Pulse 77 11/03/22 05:46 Resp 18 11/03/22 05:46 BP 144/88 11/03/22 05:46 Pulse Ox 95 11/03/22 05:46 FiO2 Laboratory Results Sodium 140 mmol/L (137-145) 10/31/22 07:28 Potassium 4.3 mmol/L (3.5-5.1) 10/31/22 07:28 Chloride 105 mmol/L (98-107) 10/31/22 07:28 Carbon Dioxide 31 mmol/L (22-30) H 10/31/22 07:28 Anion Gap 4 mmol/L 10/31/22 07:28 BUN 13 mg/dL (9-20) 10/31/22 07:28 Creatinine 1.20 mg/dL (0.66-1.25) 10/31/22 07:28 Est GFR (CKD-EPI)AfAm 76 (>60 ml/min/1.73 sqM) 10/31/22 07:28 Est GFR (CKD-EPI)NonAf 66 (>60 ml/min/1.73 sqM) 10/31/22 07:28 Glucose 93 mg/dL (74-99) 10/31/22 07:[address] Glu mg/dL 117 10/31/22 07:28 Hemoglobin A1c 5.7 % (0.0-6.0) 10/31/22 07:28 Calcium 8.7 mg/dL (8.4-10.2) 10/31/22 07:28 Total Bilirubin 0.4 mg/dL (0.2-1.3) 10/31/22 07:28 AST 25 U/L (17-59) 10/31/22 07:28 ALT 21 U/L (4-49) 10/31/22 07:28 Alkaline Phosphatase 64 U/L (38-126) 10/31/22 07:28 Total Protein 6.3 g/dL (6.3-8.2) 10/31/22 07:28 Albumin 3.9 g/dL (3.5-5.0) 10/31/22 07:28 TSH >100.000 mIU/L (0.465-4.680) H 10/30/22 23:59 Free T4 0.29 ng/dL (0.78-2.19) L 10/30/22 23:59 Coronavirus (PCR) Not Detected (Not Detectd) 10/31/22 02:04 Allergies Allergy/AdvReac Type Severity Reaction Status Date / Time No Known Allergies Allergy Verified 10/31/22 13:08 Patient Condition at Discharge: Stable Plan - Discharge Summary Discharge Rx Participant: Yes New Discharge Prescriptions: New Melatonin 5 mg PO HS 30 Days #30 tab ALPRAZolam [Xanax] 1 mg PO HS 30 Days #30 tab fluPHENAZine [Prolixin] 5 mg PO BID 30 Days #30 tab carBAMazepine [TEGretol XR] 200 mg PO DAILY 30 Days #30 tab Continue HYDROcodone/APAP 7.5-325MG [[place] 7.5-325] 1 tab PO DAILY PRN PRN Reason: Pain Losartan [Cozaar] 25 mg PO DAILY Atorvastatin [Lipitor] 40 mg PO DAILY Levothyroxine Sodium [Synthroid] 200 mcg PO DAILY Discontinued Ergocalciferol [Vitamin D2 (1250 Mcg = 73872 Iu)] 1,250 mcg PO Q30D fluPHENAZine [Prolixin 5MG] 5 mg PO BID Sertraline [Zoloft] 50 mg PO DAILY 30 Days #30 tab carBAMazepine [TEGretol XR] 200 mg PO DAILY LORazepam [Ativan] 2 mg PO TID PRN PRN Reason: Anxiety Discharge Medication List HYDROcodone/APAP 7.5-325MG [[place] 7.5-325] 1 tab PO DAILY PRN 03/15/15 [History] Atorvastatin [Lipitor] 40 mg PO DAILY 10/31/22 [History] Levothyroxine Sodium [Synthroid] 200 mcg PO DAILY 10/31/22 [History] Losartan [Cozaar] 25 mg PO DAILY 10/31/22 [History] ALPRAZolam [Xanax] 1 mg PO HS 30 Days #30 tab 11/03/22 [Rx] Melatonin 5 mg PO HS 30 Days #30 tab 11/03/22 [Rx] carBAMazepine [TEGretol XR] 200 mg PO DAILY 30 Days #30 tab 11/03/22 [Rx] fluPHENAZine [Prolixin] 5 mg PO BID 30 Days #30 tab 11/03/22 [Rx] Follow up Appointment(s)/Referral(s): Mikhail Baker MD [Primary Care Provider] - 1-2 days [facility] [NON-STAFF] - 11/06/22 10:30 am (11/06 with Rochelle Balderrama at 10:30am 11/16 with Elvie Douglas at 1pm) Patient Instructions/Handouts: How to Stop Smoking (DC), Brief Psychotic Disorder (DC) Activity/Diet/Wound Care/Special Instructions: Avoid the use of street drugs and alcohol. Take all medications as prescribed. When you are in need of refills on your medications, please contact your medical provider and/or outpatient psychiatrist to have this done. Please go to scheduled outpatient appointments for aftercare treatment. If symptoms return or become worse, call the crisis line at and/or go to the nearest emergency room for evaluation. Discharge Disposition: HOME SELF-CARE
== END 2022-11-03 12:43 | disposition home or self-care (01) | DRG 750 ==
LOC: EC 23:08 → OBSVTOIN 10-31 03:33 → 3MHU 10-31 03:33
PROVIDERS: ADMIT Psychiatry & Neurology Psychiatry; ATTEND Psychiatry & Neurology Psychiatry
DX: F25.0 Schizoaffective disorder, bipolar type (principal); F43.20 Adjustment disorder, unspecified; E03.9 Hypothyroidism, unspecified; G47.00 Insomnia, unspecified; F17.210 Nicotine dependence, cigarettes, uncomplicated; J44.9 Chronic obstructive pulmonary disease, unspecified; F15.10 Other stimulant abuse, uncomplicated; T43.3X6A Underdosing of phenothiazine antipsychotics and neuroleptics, initial encounter; T42.1X6A Underdosing of iminostilbenes, initial encounter; T43.226A Underdosing of selective serotonin reuptake inhibitors, initial encounter; Z79.890 Hormone replacement therapy; Z79.899 Other long term (current) drug therapy; Z81.8 Family history of other mental and behavioral disorders; Z91.199 Patient's noncompliance with other medical treatment and regimen due to unspecified reason; Z56.0 Unemployment, unspecified
CPT/HCPCS: 36415; 80053; 82075; 83036; 84439; 84443; 87635; 93005; 99285

== ENCOUNTER 2023-04-23 14:09 | Emergency (ER) | payer MEDICAID, OTHER ==
[2023-04-23 14:20] VITALS: RESP 18; TEMP 99.4
[2023-04-23] MEDS ORDERED: clonazePAM 0.5 MG TAB PO STA (14:41)
[2023-04-23] MEDS ORDERED: SODIUM CHLORIDE 0.9% 1,000 ML IV ONE (14:42)
[2023-04-23 15:06] LABS: Basophils # (A) 0.1 k/uL (0-0.2); Basophils % (A) 1 %; Eosinophils # (A) 0.1 k/uL (0-0.7); Eosinophils % (A) 1 %; HCT 44.9 % (39.0-53.0); HGB 15.2 gm/dL (13.0-17.5); Lymphocytes # (A) 2.2 k/uL (1.0-4.8); Lymphocytes % (A) 29 %; MCH 32.9 pg (25.0-35.0); MCHC 33.9 g/dL (31.0-37.0); MCV 97.1 fL (80.0-100.0); Mean Platelet Volume 7.4; Monocytes # (A) 0.4 k/uL (0-1.0); Monocytes % (A) 6 %; Neutrophils # (A) 4.8 k/uL (1.3-7.7); Neutrophils % (A) 62 %; Platelet Count 214 k/uL (150-450); RBC 4.63 m/uL (4.30-5.90); RDW 12.8 % (11.5-15.5); WBC 7.7 k/uL (3.8-10.6)
--- NOTE | 2023-04-23 15:23 | ED ---
General Adult HPI - General Chief complaint: GI Bleed Stated complaint: bloody stool vomiting Time Seen by Provider: 04/23/23 14:23 Source: patient, RN notes reviewed Mode of arrival: ambulatory Limitations: no limitations - History of Present Illness Initial comments: 62-year-old male with past medical history significant for hepatitis C presents the emergency department with a chief complaint of blood in stool. Patient reports that he took a stool softener yesterday and had a large bowel movement that had black blood in it. He reports that he sent a stool sample to his primary care tested and recommended he be evaluated in the ED. He is complaining of dizziness and fatigue. Denies any known fever cough, chest pain, palpitations, shortness of breath, abdominal pain, dysuria, hematuria. Denies anticoagulant use. - Related Data Home Medications Medication Instructions Recorded Confirmed HYDROcodone/APAP 7.5-325MG [[place] 1 tab PO DAILY PRN 03/15/15 04/23/23 7.5-325] Atorvastatin [Lipitor] 40 mg PO HS 10/31/22 04/23/23 Levothyroxine Sodium [Synthroid] 175 mcg PO DAILY 04/23/23 04/23/23 Metoclopramide [Reglan] 10 mg PO QID PRN 04/23/23 04/23/23 Prochlorperazine Maleate 10 mg PO HS 04/23/23 04/23/23 clonazePAM 1 mg PO BID PRN 04/23/23 04/23/23 traZODone HCL [Desyrel] 100 - 200 mg PO HS 04/23/23 04/23/23 Previous Rx's Medication Instructions Recorded Ondansetron Odt [Zofran Odt] 4 mg PO Q8HR PRN #20 tab 04/23/23 Allergies Allergy/AdvReac Type Severity Reaction Status Date / Time No Known Allergies Allergy Verified 04/23/23 15:40 Review of Systems ROS Statement: Those systems with pertinent positive or pertinent negative responses have been documented in the HPI. ROS Other: All systems not noted in ROS Statement are negative. Past Medical History Past Medical History: No Reported History Additional Past Medical History / Comment(s): hepatits c History of Any Multi-Drug Resistant Organisms: None Reported Past Surgical History: Appendectomy, Hernia Repair Additional Past Surgical History / Comment(s): 2 Hernia Repairs Past Anesthesia/Blood Transfusion Reactions: No Reported Reaction Past Psychological History: Anxiety, Bipolar, Depression, Schizophrenia Smoking Status: Current every day smoker Past Alcohol Use History: None Reported Past Drug Use History: None Reported General Exam - General Exam Comments Initial Comments: General: Alert, in no acute distress Head: atraumatic normocephalic. Eyes PERRL, EOMI intact, mucous membranes moist Respiratory: Lungs clear to auscultation bilaterally Cardiovascular: Heart rate regular rate and rhythm Abdominal: Soft without guarding or rebound Extremities: Normal inspection with full range of motion and normal capillary refill Neuroogic: alert and oriented 3, CN II-XII intact, able to ambulate with steady gait Skin: warm dry and intact with normal color : Rectal exam does not reveal any obvious hemorrhoids. No gross blood in the rectal vault Limitations: no limitations Course Vital Signs 04/23/23 04/23/23 14:11 16:51 Temperature 99.4 F Pulse Rate 83 69 Respiratory 18 18 Rate Blood Pressure 126/79 141/93 O2 Sat by Pulse 96 98 Oximetry Medical Decision Making - Medical Decision Making Was pt. sent in by a medical professional or institution (, PA, [employer], urgent care, hospital, or group home...) When possible be specific @ -[No] Did you speak to anyone other than the patient for history (EMS, parent, family, police, friend...)? What history was obtained from this source @ -[No] Did you review nursing and triage notes (agree or disagree)? Why? @ -[I reviewed and agree with nursing and triage notes] Were old charts reviewed (outside hosp., previous admission, EMS record, old EKG, old radiological studies, urgent care reports/EKG's, group home records)? Report findings @ -[No old charts were reviewed] Differential Diagnosis (chest pain, altered mental status, abdominal pain women, abdominal pain men, vaginal bleeding, weakness, fever, dyspnea, syncope, headache, dizziness, GI bleed, back pain, seizure, CVA, palpatations, mental health, musculoskeletal)? @ -[not applicable] EKG interpreted by me (3pts min.). @ -[As above] X-rays interpreted by me (1pt min.). @ -[None done] CT interpreted by me (1pt min.). @ -[None done] U/S interpreted by me (1pt. min.). @ -[None done] What testing was considered but not performed or refused? (CT, X-rays, U/S, labs)? Why? @ -[None] What meds were considered but not given or refused? Why? @ -[None] Did you discuss the management of the patient with other professionals (professionals i.e. , PA, [employer], lab, RT, psych nurse, rn social services, maintenance groundman, teacher, tactical/mobile watch officer, spring encaser)? Give summary @ -[No] Was smoking cessation discussed for >3mins.? @ -[No] Was critical care preformed (if so, how long)? @ -[No] Were there social determinants of health that impacted care today? How? (Homelessness, low income, unemployed, alcoholism, drug addiction, transportation, low edu. Level, literacy, decrease access to med. care, fpc, rehab)? @ -[No] Was there de-escalation of care discussed even if they declined (Discuss DNR or withdrawal of care, Hospice)? DNR status @ -[No] What co-morbidities impacted this encounter? (DM, HTN, Smoking, COPD, CAD, Cancer, CVA, ARF, Chemo, Hep., AIDS, mental health diagnosis, sleep apnea, morbid obesity)? @ -[None] Was patient admitted / discharged? Hospital course, mention meds given and route, prescriptions, significant lab abnormalities, going to OR and other pertinent info. @ -Discharged. This is a 8-year-old male who presents emergency Department with a chief complaint Black stools. Patient had a thorough history and physical exam performed. Vital signs stable upon evaluation. Heart rate regular rate and rhythm, lungs clear to auscultation bilaterally abdomen soft and nontender. Rectal exam does reveal any hemorrhoids or gross blood in the rectal vault. Patient had laboratory studies performed including a negative fecal occult. All other laboratory studies unremarkable. I discussed results in detail the patient verbalized understanding all questions addressed. Patient verbalizes you recently took Pepto-Bismol, I suspect this is likely a medication side effect. Patient discharged in stable condition. Case discussed with Dr. Carroll [facility] who agrees with POC Undiagnosed new problem with uncertain prognosis? @ -[No] Drug Therapy requiring intensive monitoring for toxicity (Heparin, Nitro, Insulin, Cardizem)? @ -[No] Were any procedures done? @ -[No] Diagnosis/symptom? @ -Black stool A Acute, or Chronic, or Acute on Chronic? @ -Acute Uncomplicated (without systemic symptoms) or Complicated (systemic symptoms)? @ -Uncomplicated Side effects of treatment? @ -[No] Exacerbation, Progression, or Severe Exacerbation? @ -[No] Poses a threat to life or bodily function? How? (Chest pain, [place], [place], pneumonia, PE, COPD, DKA, ARF, appy, cholecystitis, CVA, Diverticulitis, Homicidal, Suicidal, threat to staff... and all critical care pts) @ -Low likelihood - Lab Data Result diagrams: 04/23/23 14:55 04/23/23 14:55 Lab Results 04/23/23 04/23/23 04/23/23 Range/Units 14:55 14:55 14:55 WBC 7.7 (3.8-10.6) k/uL RBC 4.63 (4.30-5.90) m/uL Hgb 15.2 (13.0-17.5) gm/dL Hct 44.9 (39.0-53.0) % MCV 97.1 (80.0-100.0) fL MCH 32.9 (25.0-35.0) pg MCHC 33.9 (31.0-37.0) g/dL RDW 12.8 (11.5-15.5) % Plt Count 214 (150-450) k/uL MPV 7.4 Neutrophils % 62 % Lymphocytes % 29 % Monocytes % 6 % Eosinophils % 1 % Basophils % 1 % Neutrophils # 4.8 (1.3-7.7) k/uL Lymphocytes # 2.2 (1.0-4.8) k/uL Monocytes # 0.4 (0-1.0) k/uL Eosinophils # 0.1 (0-0.7) k/uL Basophils # 0.1 (0-0.2) k/uL PT 11.6 (10.0-12.5) sec INR 1.1 (<1.2) APTT 25.9 (22.0-30.0) sec Sodium 139 (137-145) mmol/L Potassium 4.0 (3.5-5.1) mmol/L Chloride 105 (98-107) mmol/L Carbon Dioxide 23 (22-30) mmol/L Anion Gap 11 mmol/L BUN 21 H (9-20) mg/dL Creatinine 0.99 (0.66-1.25) mg/dL Est GFR (CKD-EPI)AfAm >90 (>60 ml/min/1.73 sqM) Est GFR (CKD-EPI)NonAf 82 (>60 ml/min/1.73 sqM) Glucose 94 (74-99) mg/dL Plasma Lactic Acid Chase (0.7-2.0) mmol/L Calcium 9.2 (8.4-10.2) mg/dL Total Bilirubin 0.5 (0.2-1.3) mg/dL AST 20 (17-59) U/L ALT 15 (4-49) U/L Alkaline Phosphatase 61 (38-126) U/L Total Protein 6.7 (6.3-8.2) g/dL Albumin 4.3 (3.5-5.0) g/dL Stool Occult Blood (Negative) Influenza Type A (PCR) (Not Detectd) Influenza Type B (PCR) (Not Detectd) RSV (PCR) (Not Detectd) SARS-CoV-2 (PCR) (Not Detectd) 04/23/23 04/23/23 04/23/23 Range/Units 14:55 14:55 15:57 WBC (3.8-10.6) k/uL RBC (4.30-5.90) m/uL Hgb (13.0-17.5) gm/dL Hct (39.0-53.0) % MCV (80.0-100.0) fL MCH (25.0-35.0) pg MCHC (31.0-37.0) g/dL RDW (11.5-15.5) % Plt Count (150-450) k/uL MPV Neutrophils % % Lymphocytes % % Monocytes % % Eosinophils % % Basophils % % Neutrophils # (1.3-7.7) k/uL Lymphocytes # (1.0-4.8) k/uL Monocytes # (0-1.0) k/uL Eosinophils # (0-0.7) k/uL Basophils # (0-0.2) k/uL PT (10.0-12.5) sec INR (<1.2) APTT (22.0-30.0) sec Sodium (137-145) mmol/L Potassium (3.5-5.1) mmol/L Chloride (98-107) mmol/L Carbon Dioxide (22-30) mmol/L Anion Gap mmol/L BUN (9-20) mg/dL Creatinine (0.66-1.25) mg/dL Est GFR (CKD-EPI)AfAm (>60 ml/min/1.73 sqM) Est GFR (CKD-EPI)NonAf (>60 ml/min/1.73 sqM) Glucose (74-99) mg/dL Plasma Lactic Acid Chase 0.5 L (0.7-2.0) mmol/L Calcium (8.4-10.2) mg/dL Total Bilirubin (0.2-1.3) mg/dL AST (17-59) U/L ALT (4-49) U/L Alkaline Phosphatase (38-126) U/L Total Protein (6.3-8.2) g/dL Albumin (3.5-5.0) g/dL Stool Occult Blood Negative (Negative) Influenza Type A (PCR) Not Detected (Not Detectd) Influenza Type B (PCR) Not Detected (Not Detectd) RSV (PCR) Not Detected (Not Detectd) SARS-CoV-2 (PCR) Not Detected (Not Detectd) Disposition Clinical Impression: Black stool Disposition: HOME SELF-CARE Condition: Stable Instructions (If sedation given, give patient instructions): Gastrointestinal Bleeding (ED), Melena (ED) Additional Instructions: Please monitor symptoms closely Please return to the nearest emergency department if symptoms worsen or persist Prescriptions: Ondansetron Odt [Zofran Odt] 4 mg PO Q8HR PRN #20 tab PRN Reason: Nausea Is patient prescribed a controlled substance at d/c from ED?: No Referrals: Mikhail Baker MD [Primary Care Provider] - 1-2 days Time of Disposition: 16:24
[2023-04-23 15:41] LABS: INR 1.1 (<1.2); Partial Thromboplastin Time 25.9 sec (22.0-30.0); Prothrombin Time 11.6 sec (10.0-12.5)
[2023-04-23 15:47] LABS: ALT 15 U/L (4-49); AST 20 U/L (17-59); African American GFR (CKD) >90 (>60 ml/min/1.73 sqM); Albumin 4.3 g/dL (3.5-5.0); Alkaline Phosphatase 61 U/L (38-126); Anion Gap 11 mmol/L; Blood Urea Nitrogen 21 mg/dL (9-20); Calcium 9.2 mg/dL (8.4-10.2); Carbon Dioxide 23 mmol/L (22-30); Chloride 105 mmol/L (98-107); Glucose 94 mg/dL (74-99); Non-African American GFR(CKD) 82 (>60 ml/min/1.73 sqM); Sodium 139 mmol/L (137-145); Total Bilirubin 0.5 mg/dL (0.2-1.3); Total Protein 6.7 g/dL (6.3-8.2)
[2023-04-23] MEDS ORDERED: ONDANSETRON ODT 4 MG TAB PO STA (16:39)
[2023-04-23] MEDS ORDERED: ONDANSETRON 4 MG ODT STARTER PACK 2 TAB BTL PO STA (16:40)
[2023-04-23 17:02] VITALS: BP 141/93; PULSE 69
== END 2023-04-23 16:52 | disposition home or self-care (01) ==
LOC: EC 14:09
DX: K92.1 Melena (principal); F41.9 Anxiety disorder, unspecified; F31.9 Bipolar disorder, unspecified; F17.200 Nicotine dependence, unspecified, uncomplicated; Z79.899 Other long term (current) drug therapy; Z20.822 Contact with and (suspected) exposure to COVID-19
CPT/HCPCS: 36415; 80053; 82272; 83605; 85025; 85610; 85730; 87636; 99284

== ENCOUNTER → 2023-06-25 | Outpatient (CLI) | payer OTHER ==
--- NOTE | 2023-06-25 15:43 | CTL ---
EXAMINATION TYPE: CT Low Dose Lung DATE OF EXAM ORDERED: 06/25/2023 HISTORY:. Lung cancer screening CT DLP: [address] CTDI: 2.4 mGy Automated exposure control for dose reduction was used. SCREENING VISIT: First COMPARISON: None TECHNIQUE: Low dose computed tomography scan was performed through the chest at 1 mm thick sections a nd reconstructed images in multiple planes at 1 mm and [address] DIAGNOSTIC QUALITY: Satisfactory FINDINGS: There is a 6.5 mm subsolid nodule in the left upper lobe. There is a 2 to 3 mm calcified granuloma in the right upper lobe. There is no abnormal airspace/consolidative density or abnormal interstitial density. There is no pleural effusion, pleural thickening or pneumothorax. The great vessels the chest are normal is no mediastinal, hilar or axillary adenopathy. Limited scanning through the upper abdomen reveals no gross abnormality. No focal osseous lesions are seen. IMPRESSION: 1. Lung RADS category 3, 6.5 mm subsolid nodule in the left upper lobe. Follow-up CT thorax in 6 wed ths is recommended to confirm stability. 2. No acute cardiopulmonary disease.
== END | disposition home or self-care (01) ==
LOC: RADCTMAIN 13:17
PROVIDERS: ATTEND Family Medicine
DX: Z12.2 Encounter for screening for malignant neoplasm of respiratory organs (principal); F17.210 Nicotine dependence, cigarettes, uncomplicated
CPT/HCPCS: 71271

== ENCOUNTER → 2023-12-10 | Outpatient (CLI) | payer OTHER ==
--- NOTE | 2023-12-10 13:43 | CT ---
EXAMINATION TYPE: CT chest wo con DATE OF EXAM: 12/10/2023 COMPARISON: 06/25/2023 HISTORY: pulmonary nodule CT DLP: 415 mGycm. Automated Exposure Control for Dose Reduction was Utilized. TECHNIQUE: CT scan of the thorax is performed without IV contrast. FINDINGS: There are mild emphysematous changes. There is a stable 6 mm subsolid nodule in the left upper lobe. No new or suspicious lung nodule is se en. There is no airspace consolidation. There is no abnormal interstitial density. There is no pleural effusion, pleural thickening or pneumothorax. The great vessels of the chest are normal and there is no mediastinal, hilar or axillary adenopathy. Limited scanning through the upper abdomen reveals no gross abnormality with exception of a tiny nono bstructing left renal calculus. No focal osseous lesions are seen. IMPRESSION: 1. Stable 6 mm subpleural solid nodule in the left upper lobe. 2. Mild emphysematous changes. 3. No acute cardiomegaly disease. 4. Tiny nonobstructing left renal calcification.
== END | disposition home or self-care (01) ==
LOC: RADCTMAIN 12:54
PROVIDERS: ATTEND Family Medicine
DX: N28.89 Other specified disorders of kidney and ureter (principal); R91.1 Solitary pulmonary nodule; J43.9 Emphysema, unspecified
CPT/HCPCS: 71250

== ENCOUNTER 2024-07-11 04:40 | Emergency (ER) | payer OTHER ==
--- NOTE | 2024-07-11 04:45 | ED ---
Extremity Problem HPI - General Stated complaint: Bi-lateral Hip Pain Time Seen by Provider: 07/11/24 04:43 Source: RN notes reviewed, old records reviewed Mode of arrival: ambulatory Limitations: no limitations - History of Present Illness Initial comments: This is a 63-year-old male to the ER for evaluation patient notes today for evaluation regards to bilateral hip pain needing medication refill Complaint: extremity pain, extremity swelling -: days(s) Location: left, right, bilateral lower extremity History of Same: Yes -: Yes myalgia Radiation: none Quality: aching Consistency: constant Improves with: nothing Worsens with: weight bearing - Related Data Home Medications Medication Instructions Recorded Confirmed Atorvastatin [Lipitor] 40 mg PO HS 10/31/22 04/23/23 Metoclopramide [Reglan] 10 mg PO QID PRN 04/23/23 04/23/23 Prochlorperazine Maleate 10 mg PO HS 04/23/23 04/23/23 traZODone HCL [Desyrel] 100 - 200 mg PO HS 04/23/23 04/23/23 Previous Rx's Medication Instructions Recorded Ondansetron Odt [Zofran Odt] 4 mg PO Q8HR PRN #20 tab 04/23/23 HYDROcodone/APAP 7.5-325MG [[place] 1 tab PO Q6HR PRN #12 tab 07/11/24 7.5-325] Levothyroxine Sodium [Synthroid] 175 mcg PO DAILY #30 tab 07/11/24 Levothyroxine Sodium [Synthroid] 175 mcg PO DAILY #30 tablet 07/11/24 clonazePAM 1 mg PO BID PRN #9 tab 07/11/24 Allergies Allergy/AdvReac Type Severity Reaction Status Date / Time NSAIDS (Non-Steroidal AdvReac Nausea Verified 07/11/24 04:48 Anti-Inflamma Review of Systems ROS Statement: Those systems with pertinent positive or pertinent negative responses have been documented in the HPI. ROS Other: All systems not noted in ROS Statement are negative. Past Medical History Past Medical History: No Reported History Additional Past Medical History / Comment(s): hepatits c History of Any Multi-Drug Resistant Organisms: None Reported Past Surgical History: Appendectomy, Hernia Repair Additional Past Surgical History / Comment(s): 2 Hernia Repairs Past Anesthesia/Blood Transfusion Reactions: No Reported Reaction Past Psychological History: Anxiety, Bipolar, Depression, Schizophrenia Smoking Status: Current every day smoker Past Alcohol Use History: None Reported Past Drug Use History: None Reported General Exam General appearance: alert, in no apparent distress Head exam: Present: atraumatic, normocephalic, normal inspection Eye exam: Present: normal appearance, PERRL, EOMI. Absent: scleral icterus, conjunctival injection, periorbital swelling ENT exam: Present: normal exam, mucous membranes moist Neck exam: Present: normal inspection. Absent: tenderness, meningismus, lymphadenopathy Respiratory exam: Present: normal lung sounds bilaterally. Absent: respiratory distress, wheezes, rales, rhonchi, stridor Cardiovascular Exam: Present: regular rate, normal rhythm, normal heart sounds. Absent: systolic murmur, diastolic murmur, rubs, gallop, clicks GI/Abdominal exam: Present: soft, normal bowel sounds. Absent: distended, tenderness, guarding, rebound, rigid Extremities exam: Present: normal inspection, full ROM, normal capillary refill. Absent: tenderness, pedal edema, joint swelling, calf tenderness Back exam: Present: normal inspection Neurological exam: Present: alert, oriented X3, CN II-XII intact Psychiatric exam: Present: normal affect, normal mood Skin exam: Present: warm, dry, intact, normal color. Absent: rash Course Vital Signs 07/11/24 07/11/24 04:44 05:28 Temperature 98.6 F 98 F Pulse Rate 80 82 Respiratory 18 17 Rate Blood Pressure 142/84 148/99 O2 Sat by Pulse 99 98 Oximetry - Reevaluation(s) Reevaluation #1: Medical records reviewed Reevaluation #2: Patient symptoms improved Reevaluation #3: Patient informed of results questions answered Reevaluation #4: Was pt. sent in by a medical professional or institution (, PA, SENIOR GL ACCOUNTANT, urgent care, hospital, or assisted...) When possible be specific @ -no Did you speak to anyone other than the patient for history (EMS, parent, family, police, friend...)? What history was obtained from this source @ -no Did you review nursing and triage notes (agree or disagree)? Why? @ -agree Are old charts reviewed (outside hosp., previous admission, EMS record, old EKG, old radiological studies, urgent care reports/EKG's, assisted records)? Report findings @ -yes Differential Diagnosis (chest pain, altered mental status, abdominal pain women, abdominal pain men, vaginal bleeding, weakness, fever, dyspnea, syncope, headache, dizziness, GI bleed, back pain, seizure, CVA, palpatations, mental health, musculoskeletal)? @ -prior EKG interpreted by me (3pts min.). @ -no X-rays interpreted by me (1pt min.). @ -no CT interpreted by me (1pt min.). @ -no U/S interpreted by me (1pt. min.). @ -no What testing was considered but not performed or refused? (CT, X-rays, U/S, labs)? Why? @ -none What meds were considered but not given or refused? Why? @ -none Did you discuss the management of the patient with other professionals (professionals i.e. , PA, SENIOR GL ACCOUNTANT, lab, RT, psych nurse, mental health social worker, food management aide, teacher, aeronautical engineering officer, upper caser)? Give summary @ -no Was smoking cessation discussed for >3mins.? @ -no Was critical care preformed (if so, how long)? @ -no Were there social determinants of health that impacted care today? How? (Homelessness, low income, unemployed, alcoholism, drug addiction, t ransportation, low edu. Level, literacy, decrease access to med. care, skilled nursing, rehab)? @ -none Was there de-escalation of care discussed even if they declined (Discuss DNR or withdrawal of care, Hospice)? DNR status @ -no What co-morbidities impacted this encounter? (DM, HTN, Smoking, COPD, CAD, Cancer, CVA, ARF, Chemo, Hep., AIDS, mental health diagnosis, sleep apnea, morbid obesity)? @ -none Was patient admitted / discharged? Hospital course, mention meds given and route, prescriptions, significant lab abnormalities, going to OR and other pertinent info. @ - 63 male to ER for medication refill, given medications and can be discharged home Discharge Undiagnosed new problem with uncertain prognosis? @ -no Drug Therapy requiring intensive monitoring for toxicity (Heparin, Nitro, Insulin, Cardizem)? @ -no Were any procedures done? @ -no Diagnosis/symptom? @ -Medication refill Acute, or Chronic, or Acute on Chronic? @ -Acute Uncomplicated (without systemic symptoms) or Complicated (systemic symptoms)? @ -Complicated Side effects of treatment? @ -no Exacerbation, Progression, or Severe Exacerbation? @ -exacerbation Poses a threat to life or bodily function? How? (Chest pain, [place], [place], pneumonia, PE, COPD, DKA, ARF, appy, cholecystitis, CVA, Diverticulitis, Homicidal, Suicidal, threat to staff... and all critical care pts) @ -no Medical Decision Making - Medical Decision Making 63 male to ER for medication refill, given medications and can be discharged home Disposition Clinical Impression: Medicine refill Disposition: HOME SELF-CARE Condition: Good Instructions (If sedation given, give patient instructions): Medicine Refill (ED) Prescriptions: clonazePAM 1 mg PO BID PRN #9 tab PRN Reason: Anxiety HYDROcodone/APAP 7.5-325MG [[place] 7.5-325] 1 tab PO Q6HR PRN #12 tab PRN Reason: Pain Levothyroxine Sodium [Synthroid] 175 mcg PO DAILY #30 tab Levothyroxine Sodium [Synthroid] 175 mcg PO DAILY #30 tablet Is patient prescribed a controlled substance at d/c from ED?: No Referrals: None,Stated [Primary Care Provider] - 1-2 days Time of Disposition: 05:00
[2024-07-11 05:30] VITALS: BP 148/99; PULSE 82; RESP 17; TEMP 98
== END 2024-07-11 05:30 | disposition home or self-care (01) ==
LOC: EC 04:40
DX: Z76.0 Encounter for issue of repeat prescription (principal); F17.200 Nicotine dependence, unspecified, uncomplicated; Z88.6 Allergy status to analgesic agent
CPT/HCPCS: 99283

== ENCOUNTER 2024-09-27 01:52 | Emergency (ER) | payer OTHER ==
--- NOTE | 2024-09-27 03:07 | ED ---
General Adult HPI - General Chief complaint: Psychiatric Symptoms Stated complaint: GERALDO Time Seen by Provider: 09/27/24 02:14 Source: police Mode of arrival: ambulatory Limitations: no limitations - History of Present Illness Initial comments: Patient is a is a 63-year-old gentleman with a past medical history of hepatitis C presenting today for throat pain. Patient was reportedly brought in by police after the patient was seen at [facility] and was ultimately reportedly told to leave because he did not feel safe taking medications there. PD report the patient was banging on neighbor's doors asking them to call 911. Patient states that throat pain began suddenly yesterday at 3 PM. He denies ingesting any sharp objects, did not eat chips or anything with bones in it. Does not remember anything that seemed to insight the pain. States that later on in the evening he began having episodes of bright red emesis and had black stools earlier tonight as well. He denies hemoptysis. He denies fevers. He states that he is allergic to NSAIDs and states that his allergy is an upset stomach and has been using topical cream that contains NSAIDS and wonders if this is what is causing his throat discomfort. Denies additional allergies. Denies chest pain. Denies abdominal pain. Patient denies psychiatric history. Patient states that he left [facility] because the medications they were trying to give him were making him choke. - Related Data Home Medications Medication Instructions Recorded Confirmed Atorvastatin [Lipitor] 40 mg PO HS 10/31/22 04/23/23 Metoclopramide [Reglan] 10 mg PO QID PRN 04/23/23 04/23/23 Prochlorperazine Maleate 10 mg PO HS 04/23/23 04/23/23 traZODone HCL [Desyrel] 100 - 200 mg PO HS 04/23/23 04/23/23 Previous Rx's Medication Instructions Recorded Ondansetron Odt [Zofran Odt] 4 mg PO Q8HR PRN #20 tab 04/23/23 HYDROcodone/APAP 7.5-325MG [Hurley 1 tab PO Q6HR PRN #12 tab 07/11/24 7.5-325] Levothyroxine Sodium [Synthroid] 175 mcg PO DAILY #30 tab 07/11/24 Levothyroxine Sodium [Synthroid] 175 mcg PO DAILY #30 tablet 07/11/24 clonazePAM 1 mg PO BID PRN #9 tab 07/11/24 Allergies Allergy/AdvReac Type Severity Reaction Status Date / Time NSAIDS (Non-Steroidal AdvReac Nausea Verified 09/27/24 02:05 Anti-Inflamma Review of Systems ROS Statement: Those systems with pertinent positive or pertinent negative responses have been documented in the HPI. ROS Other: All systems not noted in ROS Statement are negative. Past Medical History Past Medical History: No Reported History Additional Past Medical History / Comment(s): hepatits c History of Any Multi-Drug Resistant Organisms: None Reported Past Surgical History: Appendectomy, Hernia Repair Additional Past Surgical History / Comment(s): 2 Hernia Repairs Past Anesthesia/Blood Transfusion Reactions: No Reported Reaction Past Psychological History: Anxiety, Bipolar, Depression, Schizophrenia Smoking Status: Current every day smoker Past Alcohol Use History: None Reported Past Drug Use History: None Reported General Exam - General Exam Comments Initial Comments: PE: CONSTITUTIONAL: No apparent distress, well appearing SKIN: Warm, dry, no jaundice, hives or petechiae EYES: Pupils are equally round, extraocular movements intact without nystagmus, clear conjunctiva, non-icteric sclera HENT: Normocephalic, atraumatic, moist mucus membranes, oropharynx clear without exudates, no visible oropharngeal edema or swelling, no tonsillar exudates or erythema NECK: , Full range of motion, normal appearance, no lymphadenopathy or palpable masses, no crepitus, no tenderness to palpation PULMONARY: Hoarse voice with no stridor, lungs clear to auscultation without wheezes, rhonchi, or rales, normal excursion, no accessory muscle use CARDIOVASCULAR: Regular rate, rhythm, normal S1 and S2. No appreciated murmurs, rubs or gallops. Strong radial pulses with intact distal perfusion. No lower extremity edema GASTROINTESTINAL: Soft, active bowel sounds throughout, non-tender, non- distended, no palpable masses, no rebound or guarding. No hepatosplenomegaly, rectal exam performed with KISHOR Rome, as bleacher sulfite pulp, showed light brown stool, no masses or hemorrhoids MUSCULOSKELETAL: Extremities have no gross deformity, no edema, redness, or swelling. No calf swelling NEUROLOGIC:_a/o x 3, GCS 15, normal mentation and speech. Moves all extremities x 4 without motor or sensory deficit PSYCHIATRIC:_anxious mood and affect, rapid and pressured speech, thought process is clear but tangential Limitations: no limitations Course Vital Signs 09/27/24 09/27/24 01:54 05:00 Temperature 97.2 F L 97.7 F Pulse Rate 82 Respiratory 20 Rate Blood Pressure 130/78 O2 Sat by Pulse 99 Oximetry EKG Findings - EKG Comments: EKG Findings:: Sinus rhythm with right bundle branch block, rate 70 bpm AR interval 153 ms QT/QTc 427/448 ms, left axis deviation, questionable [address] depression lead V3 with T wave inversion,Compared to EKG performed on 10/31/2022 right bundle branch block was present on prior in addition to T wave inversion in lead V3 though more pronounced on today's EKG Medical Decision Making - Medical Decision Making Was pt. sent in by a medical professional or institution (, PA, [facility], urgent care, hospital, or fdc...) When possible be specific @ -[No] Did you speak to anyone other than the patient for history (EMS, parent, family, police, friend...)? What history was obtained from this source @ -[No] Did you review nursing and triage notes (agree or disagree)? Why? @ -[I reviewed nursing and triage notes]- States that "patient was brought in by PD, patient was seen at [facility], patient states he did not feel safe taking medications and states that he was told to leave. Per PD patient was banging on the neighbors door asking them to call 911. Patient was willing to come to the ER to get evaluated. Patient was hyperventilating. He easily calmed down and began to breathe at a normal rate. Patient states he is not able to breathe. He is not petition but PT mention patient was willing to come here to get a psychiatric evaluation. Patient states that he had 1 beer last night" Were old charts reviewed (outside hosp., previous admission, EMS record, old EKG, old radiological studies, urgent care reports/EKG's, fdc records)? Report findings @ -[Medical records reviewed] A medical record review, there is a note from 09/25/2022 when patient had been admitted for acute psychosis, has a history of depression schizophrenia COPD and hypertension, was on Xanax, Zyprexa and Trileptal at that time Differential Diagnosis (chest pain, altered mental status, abdominal pain women, abdominal pain men, vaginal bleeding, weakness, fever, dyspnea, syncope, heada alcon, dizziness, GI bleed, back pain, seizure, CVA, palpatations, mental health, musculoskeletal)? @ -Differential diagnosis remains broad however top considerations include streptococcal pharyngitis, aspirated foreign body, Raisa-Luna tear, retropharyngeal abscess, boerhaves syndrome, underlying psychiatric disorder, anaphylaxis, this is not an all inclusive list EKG interpreted by me (3pts min.). @ -[As above] X-rays interpreted by me (1pt min.). @ -[None done] CT interpreted by me (1pt min.). @ -Personally reviewed CT soft tissue neck I see no evidence of airway narrowing, abscess or foreign body present, does appear to be some air tracking along the side of the neck; Radiologist interpretation as below U/S interpreted by me (1pt. min.). @ -[None done] What testing was considered but not performed or refused? (CT, X-rays, U/S, labs)? Why? @ -[None] What meds were considered but not given or refused? Why? @ -[None] Did you discuss the management of the patient with other professionals (professionals i.e. , PA, [facility] [facility], lab, RT, psych nurse, social group worker, learning support specialist, teacher, chief procurement officer, case preparer and liner)? Give summary Case discussed with Dr. Rutledge, please see below Was smoking cessation discussed for >3mins.? @ -[No] Was critical care preformed (if so, how long)? @ -[No] Were there social determinants of health that impacted care today? How? (Homelessness, low income, unemployed, alcoholism, drug addiction, transportation, low edu. Level, literacy, decrease access to med. care, fci, rehab)? @ -[No] Was there de-escalation of care discussed even if they declined (Discuss DNR or withdrawal of care, Hospice)? @ -[No] What co-morbidities impacted this encounter? (DM, HTN, Smoking, COPD, CAD, Cancer, CVA, ARF, Chemo, Hep., AIDS, mental health diagnosis, sleep apnea, morbid obesity)? @ Schizophrenia Was patient admitted / discharged? Hospital course, mention meds given and route, prescriptions, significant lab abnormalities, going to OR and other pertinent info. @Admission- This is a 63-year-old gentleman presenting in the company of police after he was found banging on the windows of neighbors doors asking them to call 911. Patient and says he feels like he has something stuck in his throat. No known trauma no known swallowed sharp objects. Patient is very anxious appearing and has somewhat bizarre affect. He is has an overall benign exam, I suspect there is potentially a slight underlying psychiatric component to this however we will obtain CT soft tissue neck, strep testing, comprehensive labs, will treat withPepcid, Ativan, Zofran and Benadryl. Of note CT brain was done given patient's bizarre behavior and denial of psychiatric history. Though upon further chart review it does appear pt has a history of schizophrenia. Patient denied improvement of symptoms with the above interventions. Labs overall reassuring. Patient had a small bedside of spitting up small amount of frothy red sputum. Continues to practice airway. CT soft tissue neck significant for large space of area lateral to the piriform sinus bilaterally more pronounced on the right which may represent diverticuli. Case was discussed with Dr. Rutledge, ENT, kindly recommends transfer to larger facility. Updated patient to findings and plan of care. He is currently breathing comfortably he denies additional needs, states no pain at this time. He is agreeable w/ plan for transfer. Case discussed with Dr. Mcgregor, ENT who kindly accepted patient for transfer. Patient transferred in stable condition. Undiagnosed new problem with uncertain prognosis? @ -[No] Drug Therapy requiring intensive monitoring for toxicity (Heparin, Nitro, Insulin, Cardizem)? @ -[No] Were any procedures done? @ -[No] Diagnosis/symptom? Air in neck Acute, or Chronic, or Acute on Chronic? Acute Uncomplicated (without systemic symptoms) or Complicated (systemic symptoms)? @Complicated Side effects of treatment? @ -[No] Exacerbation, Progression, or Severe Exacerbation? @ -[No] Poses a threat to life or bodily function? How? (Chest pain, [place], [place], pneumonia, PE, COPD, DKA, ARF, appy, cholecystitis, CVA, Diverticulitis, Homicidal, Suicidal, threat to staff... and all critical care pts) @ -[No] - Lab Data Result diagrams: 09/27/24 03:30 09/27/24 03:30 Lab Results 09/27/24 09/27/24 09/27/24 Range/Units 02:00 03:04 03:30 WBC 14.1 H (3.8-10.6) k/uL RBC 4.55 (4.30-5.90) m/uL Hgb 14.8 (13.0-17.5) gm/dL Hct 44.5 (39.0-53.0) % MCV 97.8 (80.0-100.0) fL MCH 32.4 (25.0-35.0) pg MCHC 33.2 (31.0-37.0) g/dL RDW 13.4 (11.5-15.5) % Plt Count 344 (150-450) k/uL MPV 7.5 Neutrophils % 84 % Lymphocytes % 9 % Monocytes % 6 % Eosinophils % 0 % Basophils % 0 % Neutrophils # 11.8 H (1.3-7.7) k/uL Lymphocytes # 1.3 (1.0-4.8) k/uL Monocytes # 0.8 (0-1.0) k/uL Eosinophils # 0.0 (0-0.7) k/uL Basophils # 0.1 (0-0.2) k/uL Sodium (137-145) mmol/L Potassium (3.5-5.1) mmol/L Chloride (98-107) mmol/L Carbon Dioxide (22-30) mmol/L Anion Gap mmol/L BUN (9-20) mg/dL Creatinine (0.66-1.25) mg/dL Est GFR (CKD-EPI)AfAm (>60 ml/min/1.73 sqM) Est GFR (CKD-EPI)NonAf (>60 ml/min/1.73 sqM) Glucose (74-99) mg/dL Calcium (8.4-10.2) mg/dL Total Bilirubin (0.2-1.3) mg/dL AST (17-59) U/L ALT (4-49) U/L Alkaline Phosphatase (38-126) U/L C-Reactive Protein (<1.0) mg/dL Total Protein (6.3-8.2) g/dL Albumin (3.5-5.0) g/dL Stool Occult Blood Negative (Negative) Salicylates mg/dL Urine Opiates Screen (NotDetected) Ur Oxycodone Screen (NotDetected) Urine Methadone Screen (NotDetected) Acetaminophen ug/mL Ur Barbiturates Screen (NotDetected) U Tricyclic Antidepress (NotDetected) Ur Phencyclidine Scrn (NotDetected) Ur Amphetamines Screen (NotDetected) U Methamphetamines Scrn (NotDetected) U Benzodiazepines Scrn (NotDetected) Urine Cocaine Screen (NotDetected) U Marijuana (THC) Screen (NotDetected) Influenza Type A (PCR) (Not Detectd) Influenza Type B (PCR) (Not Detectd) RSV (PCR) (Not Detectd) SARS-CoV-2 (PCR) (Not Detectd) Group A Strep (PCR) NOT DETECTED (Not Detectd) Blood Type Blood Type Confirm Blood Type Recheck Bld Type Recheck Status Antibody Screen Spec Expiration Date 09/27/24 09/27/24 09/27/24 Range/Units 03:30 03:30 03:30 WBC (3.8-10.6) k/uL RBC (4.30-5.90) m/uL Hgb (13.0-17.5) gm/dL Hct (39.0-53.0) % MCV (80.0-100.0) fL MCH (25.0-35.0) pg MCHC (31.0-37.0) g/dL RDW (11.5-15.5) % Plt Count (150-450) k/uL MPV Neutrophils % % Lymphocytes % % Monocytes % % Eosinophils % % Basophils % % Neutrophils # (1.3-7.7) k/uL Lymphocytes # (1.0-4.8) k/uL Monocytes # (0-1.0) k/uL Eosinophils # (0-0.7) k/uL Basophils # (0-0.2) k/uL Sodium 137 (137-145) mmol/L Potassium 3.9 (3.5-5.1) mmol/L Chloride 99 (98-107) mmol/L Carbon Dioxide 23 (22-30) mmol/L Anion Gap 15 mmol/L BUN 16 (9-20) mg/dL Creatinine 0.88 (0.66-1.25) mg/dL Est GFR (CKD-EPI)AfAm >90 (>60 ml/min/1.73 sqM) Est GFR (CKD-EPI)NonAf >90 (>60 ml/min/1.73 sqM) Glucose 90 (74-99) mg/dL Calcium 9.8 (8.4-10.2) mg/dL Total Bilirubin 0.9 (0.2-1.3) mg/dL AST 50 (17-59) U/L ALT 41 (4-49) U/L Alkaline Phosphatase 63 (38-126) U/L C-Reactive Protein <0.5 (<1.0) mg/dL Total Protein 7.3 (6.3-8.2) g/dL Albumin 4.9 (3.5-5.0) g/dL Stool Occult Blood (Negative) Salicylates <1.0 mg/dL Urine Opiates Screen (NotDetected) Ur Oxycodone Screen (NotDetected) Urine Methadone Screen (NotDetected) Acetaminophen <10.0 ug/mL Ur Barbiturates Screen (NotDetected) U Tricyclic Antidepress (NotDetected) Ur Phencyclidine Scrn (NotDetected) Ur Amphetamines Screen (NotDetected) U Methamphetamines Scrn (NotDetected) U Benzodiazepines Scrn (NotDetected) Urine Cocaine Screen (NotDetected) U Marijuana (THC) Screen (NotDetected) Influenza Type A (PCR) Not Detected (Not Detectd) Influenza Type B (PCR) Not Detected (Not Detectd) RSV (PCR) Not Detected (Not Detectd) SARS-CoV-2 (PCR) Not Detected (Not Detectd) Group A Strep (PCR) (Not Detectd) Blood Type O Positive Blood Type Confirm Blood Type Recheck No Previous Record Bld Type Recheck Status CABO Indicated Antibody Screen NEGATIVE Spec Expiration Date 09/30/2024232909/27/24 09/27/24 Range/Units 04:18 04:36 WBC (3.8-10.6) k/uL RBC (4.30-5.90) m/uL Hgb (13.0-17.5) gm/dL Hct (39.0-53.0) % MCV (80.0-100.0) fL MCH (25.0-35.0) pg MCHC (31.0-37.0) g/dL RDW (11.5-15.5) % Plt Count (150-450) k/uL MPV Neutrophils % % Lymphocytes % % Monocytes % % Eosinophils % % Basophils % % Neutrophils # (1.3-7.7) k/uL Lymphocytes # (1.0-4.8) k/uL Monocytes # (0-1.0) k/uL Eosinophils # (0-0.7) k/uL Basophils # (0-0.2) k/uL Sodium (137-145) mmol/L Potassium (3.5-5.1) mmol/L Chloride (98-107) mmol/L Carbon Dioxide (22-30) mmol/L Anion Gap mmol/L BUN (9-20) mg/dL Creatinine (0.66-1.25) mg/dL Est GFR (CKD-EPI)AfAm (>60 ml/min/1.73 sqM) Est GFR (CKD-EPI)NonAf (>60 ml/min/1.73 sqM) Glucose (74-99) mg/dL Calcium (8.4-10.2) mg/dL Total Bilirubin (0.2-1.3) mg/dL AST (17-59) U/L ALT (4-49) U/L Alkaline Phosphatase (38-126) U/L C-Reactive Protein (<1.0) mg/dL Total Protein (6.3-8.2) g/dL Albumin (3.5-5.0) g/dL Stool Occult Blood (Negative) Salicylates mg/dL Urine Opiates Screen Not Detected (NotDetected) Ur Oxycodone Screen Not Detected (NotDetected) Urine Methadone Screen Not Detected (NotDetected) Acetaminophen ug/mL Ur Barbiturates Screen Not Detected (NotDetected) U Tricyclic Antidepress Not Detected (NotDetected) Ur Phencyclidine Scrn Not Detected (NotDetected) Ur Amphetamines Screen Not Detected (NotDetected) U Methamphetamines Scrn Not Detected (NotDetected) U Benzodiazepines Scrn Not Detected (NotDetected) Urine Cocaine Screen Not Detected (NotDetected) U Marijuana (THC) Screen Detected H (NotDetected) Influenza Type A (PCR) (Not Detectd) Influenza Type B (PCR) (Not Detectd) RSV (PCR) (Not Detectd) SARS-CoV-2 (PCR) (Not Detectd) Group A Strep (PCR) (Not Detectd) Blood Type Blood Type Confirm O Positive Blood Type Recheck Bld Type Recheck Status Antibody Screen Spec Expiration Date Disposition Clinical Impression: Throat pain with complication Disposition: OTHER INSTITUTION NOT DEFINED Condition: Stable Referrals: None,Stated [Primary Care Provider] - 1-2 days - Out of Hospital Transfer - Req. Specs Out of Hospital Transfer - Requested Specifics: Other Emergency Center ([facility] ED)
[2024-09-27] MEDS: ONDANSETRON 4 MG/2 ML VIAL IVP STA (03:11)
[2024-09-27] MEDS: diphenhydrAMINE 50 MG/ML 1 ML VIAL IVP STA (03:14)
[2024-09-27] MEDS: LORazepam 2 MG/ML INJ IV STA (03:16)
[2024-09-27] MEDS: FAMOTIDINE 20 MG/2 ML VIAL IV STA (03:16)
[2024-09-27 03:44] LABS: Basophils # (A) 0.1 k/uL (0-0.2); Basophils % (A) 0 %; Eosinophils % (A) 0 %; HCT 44.5 % (39.0-53.0); HGB 14.8 gm/dL (13.0-17.5); Lymphocytes # (A) 1.3 k/uL (1.0-4.8); Lymphocytes % (A) 9 %; MCH 32.4 pg (25.0-35.0); MCHC 33.2 g/dL (31.0-37.0); MCV 97.8 fL (80.0-100.0); Mean Platelet Volume 7.5; Monocytes # (A) 0.8 k/uL (0-1.0); Monocytes % (A) 6 %; Neutrophils # (A) 11.8 k/uL (1.3-7.7); Neutrophils % (A) 84 %; Platelet Count 344 k/uL (150-450); RBC 4.55 m/uL (4.30-5.90); RDW 13.4 % (11.5-15.5); WBC 14.1 k/uL (3.8-10.6)
--- NOTE | 2024-09-27 03:44 | CT ---
EXAM: CT Head Without Intravenous Contrast CLINICAL HISTORY: ITS.REASON CT Reason: acute agitation, denies psych hx TECHNIQUE: Axial computed tomography images of the head/brain without intravenous contrast. CTDI is 49.1 mGy and DLP is 1284 mGy-cm. This CT exam was performed using one or more of the following dose reduction techniques: automated exposure control, adjustment of the mA and/or kV according to patient size, and/or use of iterative reconstruction technique. COMPARISON: No relevant prior studies available. FINDINGS: No acute intracranial hemorrhage. No midline shift or mass effect. The territorial rascon-white matter differentiation is maintained throughout. The ventricles and sulci are commensurate with age. The visualized orbits appear grossly unremarkable. The calvarium is intact. The visualized paranasal sinuses and mastoid air cells are grossly clear. IMPRESSION: No acute intracranial hemorrhage, midline shift, or mass effect.
[2024-09-27 03:50] LABS: Carbon Dioxide 23 mmol/L (22-30); Chloride 99 mmol/L (98-107); Glucose 90 mg/dL (74-99); Potassium 3.9 mmol/L (3.5-5.1); Sodium 137 mmol/L (137-145)
[2024-09-27 03:51] LABS: ALT 41 U/L (4-49); AST 50 U/L (17-59); Acetaminophen <10.0 ug/mL; African American GFR (CKD) >90 (>60 ml/min/1.73 sqM); Albumin 4.9 g/dL (3.5-5.0); Alkaline Phosphatase 63 U/L (38-126); Anion Gap 15 mmol/L; Blood Urea Nitrogen 16 mg/dL (9-20); C Reactive Protein <0.5 mg/dL (<1.0); Calcium 9.8 mg/dL (8.4-10.2); Non-African American GFR(CKD) >90 (>60 ml/min/1.73 sqM); Salicylate <1.0 mg/dL; Total Bilirubin 0.9 mg/dL (0.2-1.3); Total Protein 7.3 g/dL (6.3-8.2)
[2024-09-27 04:14] LABS: Influenza A Not Detected (Not Detectd); Influenza B Not Detected (Not Detectd); RSV Not Detected (Not Detectd)
[2024-09-27] MEDS: DEXAMETHASONE SOD PHOSPHATE 10 MG/ML 1 ML VIAL IVP STA (05:17)
[2024-09-27 05:23] LABS: Amphetamine Screen,Urine Not Detected (NotDetected); Barbiturate Screen,Urine Not Detected (NotDetected); Benzodiazepines Screen,Urine Not Detected (NotDetected); Cocaine Screen,Urine Not Detected (NotDetected); Methadone Screen, Urine Not Detected (NotDetected); Opiate Screen,Urine Not Detected (NotDetected); Oxycodone Screen, Urine Not Detected (NotDetected); Phencyclidine Screen,Urine Not Detected (NotDetected); Tricyclic Antidepressant,Urine Not Detected (NotDetected); Urn Cannabinoid Scrn Detected (NotDetected)
--- NOTE | 2024-09-27 05:27 | CT ---
EXAM: CT Neck Without Intravenous Contrast CLINICAL HISTORY: ITS.REASON CT Reason: sensation of FB base of throat TECHNIQUE: Axial computed tomography images of the neck without intravenous contrast. CTDI is 6.4 mGy and DLP is 246 mGy-cm. This CT exam was performed using one or more of the following dose reduction techniques: automated exposure control, adjustment of the mA and/or kV according to patient size, and/or use of iterative reconstruction technique. COMPARISON: No relevant prior studies available. FINDINGS: Limited examination from the Motion artifact at the level of the vocal cord. There is a large space of air lateral to the piriformis sinus bilaterally, more pronounced on the right. These may represent diverticuli (lateral pharyngeal pouch). Limited examination from the Motion artifact at the level of the vocal cord. No definite foreign body identified. Patulous esophagus. IMPRESSION: There is a large space of air lateral to the piriformis sinus bilaterally, more pronounced on the right. These may represent diverticuli (lateral pharyngeal pouch). Limited examination from the Motion artifact at the level of the vocal cord. No definite foreign body identified. Patulous esophagus. Consider fluoroscopy studies//esophagram.
[2024-09-27] MEDS: LIDOCAINE VISCOUS 2% 15 ML CUP PO ONE (07:40)
[2024-09-27 08:27] VITALS: BP 151/95; PULSE 95; RESP 18; TEMP 98.3
== END 2024-09-27 08:32 | disposition other institution (70) ==
LOC: EC 01:52
DX: R07.0 Pain in throat (principal); F20.9 Schizophrenia, unspecified; I45.10 Unspecified right bundle-branch block; F17.200 Nicotine dependence, unspecified, uncomplicated; Z88.6 Allergy status to analgesic agent
CPT/HCPCS: 36415; 93005; 86900; 86901; 87651; 80053; 85025; 86850; 86140; 82272; 80306; 80143; 87636; 80179; 70490; 70450; 99285; 96374; 96375 ×4; J2060; J1200; J1100; J2405; J3490

== ENCOUNTER 2024-10-01 10:53 | Inpatient (IN) | payer MEDICAID, OTHER ==
--- NOTE | 2024-10-01 11:45 | ED ---
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 Patient has a court order to be evaluated. Patient has had multiple incidences since June of disturbing the peace and acting inappropriately in public. Patient also has made some comments in the distant past about suicide. Patient states he does not need any mental health help but he does admit that he has been agitated a few times mostly because he wants to get help and has been seeking transportation to the hospital on occasion. Therese nt states that he thinks some of the doctors are trying to harm him because they keep giving him NSAIDs and he states he is allergic to NSAIDs. Patient denies any new physical complaints. Patient states he is got chronic issues with his hips and he is got a left-sided hernia in the inguinal area. Patient denies any physical complaints that are new. Patient states he been out of his medications for 2 months. - Related Data Home Medications Medication Instructions Recorded Confirmed Atorvastatin [Lipitor] 40 mg PO HS 10/31/22 04/23/23 Metoclopramide [Reglan] 10 mg PO QID PRN 04/23/23 04/23/23 Prochlorperazine Maleate 10 mg PO HS 04/23/23 04/23/23 traZODone HCL [Desyrel] 100 - 200 mg PO HS 04/23/23 04/23/23 Previous Rx's Medication Instructions Recorded Ondansetron Odt [Zofran Odt] 4 mg PO Q8HR PRN #20 tab 04/23/23 HYDROcodone/APAP 7.5-325MG [Bosler 1 tab PO Q6HR PRN #12 tab 07/11/24 7.5-325] Levothyroxine Sodium [Synthroid] 175 mcg PO DAILY #30 tab 07/11/24 Levothyroxine Sodium [Synthroid] 175 mcg PO DAILY #30 tablet 07/11/24 clonazePAM 1 mg PO BID PRN #9 tab 07/11/24 Allergies Allergy/AdvReac Type Severity Reaction Status Date / Time NSAIDS (Non-Steroidal AdvReac Nausea Verified 10/01/24 11:02 Anti-Inflamma Review of Systems ROS Statement: Those systems with pertinent positive or pertinent negative responses have been documented in the HPI. ROS Other: All systems not noted in ROS Statement are negative. Past Medical History Past Medical History: Hyperlipidemia, Hypertension, Thyroid Disorder Additional Past Medical History / Comment(s): hepatits c History of Any Multi-Drug Resistant Organisms: None Reported Past Surgical History: Appendectomy, Hernia Repair Additional Past Surgical History / Comment(s): 2 Hernia Repairs Past Anesthesia/Blood Transfusion Reactions: No Reported Reaction Past Psychological History: Anxiety, Bipolar, Depression, Schizophrenia Smoking Status: Current every day smoker Past Alcohol Use History: None Reported Past Drug Use History: None Reported General Exam - General Exam Comments Initial Comments: GENERAL: Patient is well-developed and well-nourished. Patient is nontoxic and well- hydrated and is in no acute distress. ENT: Neck is soft and supple. No significant lymphadenopathy is noted. Oropharynx is clear. Moist mucous membranes. Neck has full range of motion without eliciting any pain. EYES: The sclera were anicteric and conjunctiva were pink and moist. Extraocular movements were intact and pupils were equal round and reactive to light. Eyelids were unremarkable. PULMONARY: Unlabored respirations. Good breath sounds bilaterally. No audible rales rhonchi or wheezing was noted. CARDIOVASCULAR: There is a regular rate and rhythm without any murmurs gallops or rubs. ABDOMEN: Soft and nontender with normal bowel sounds. Patient does have a left inguinal hernia that is not painful SKIN: Skin is clear with no lesions or rashes and otherwise unremarkable. NEUROLOGIC: Patient is alert and oriented x3. Cranial nerves II through XII are grossly intact. Motor and sensory are also intact. Normal speech, volume and content. Symmetrical smile. MUSCULOSKELETAL: Normal extremities with adequate strength and full range of motion. LYMPHATICS: No significant lymphadenopathy is noted PSYCHIATRIC: Patient is agitated and volatile. He denies suicidal homicidal ideations. Patient is very upset with previous practitioners at different facilities as well as his primary medical care doctor which she states kicked him out of the practice and he has on multiple occasions showing back up there and please needed to be called Limitations: no limitations Course Vital Signs 10/01/24 10:56 Temperature 99.7 F H Pulse Rate 114 H Respiratory 20 Rate Blood Pressure 168/98 O2 Sat by Pulse 100 Oximetry Medical Decision Making - Medical Decision Making Was pt. sent in by a medical professional or institution ([facility], [facility], urgent care, hospital, or skilled nursing...) When possible be specific @ -No Did you speak to anyone other than the patient for history (EMS, parent, family, police, friend...)? What history was obtained from this source @ -No Did you review nursing and triage notes (agree or disagree)? Why? @ -I reviewed and agree with nursing and triage notes Were old charts reviewed (outside hosp., previous admission, EMS record, old EKG, old radiological studies, urgent care reports/EKG's, skilled nursing records)? Report findings @ -No old charts were reviewed Differential Diagnosis? @ -Differential Mental Health Depression, anxiety, bipolar, psychosis, schizophrenia, borderline personality, situational depression, adjustment disorder, behavioral disorder, brain tumor, malingering, substance abuse, encephalopathy, medication reaction, dementia, hypothyroidism, degenerative neurologic disorder, lupus.... This is not meant to be all-inclusive list EKG interpreted by me (3pts min.). @ -As above X-rays interpreted by me (1pt min.). @ -None done CT interpreted by me (1pt min.). @ -None done U/S interpreted by me (1pt. min.). @ -None done What testing was considered but not performed or refused? (CT, X-rays, U/S, labs)? Why? @ -None What meds were considered but not given or refused? Why? @ -None Did you discuss the management of the patient with other professionals (professionals i.e. [facility], [employer], lab, RT, psych nurse, administrator social welfare, overage shortage and damage clerk, teacher, border patrol officer, case resolution specialist)? Give summary @ -EPS evaluated the patient and determined that the patient need to be admitted. Was smoking cessation discussed for >3mins.? @ -No Was critical care preformed (if so, how long)? @ -No Were there social determinants of health that impacted care today? How? (Homelessness, low income, unemployed, alcoholism, drug addiction, transportation, low edu. Level, literacy, decrease access to med. care, fci, re hab)? @ -No Was there de-escalation of care discussed even if they declined (Discuss DNR or withdrawal of care, Hospice)? DNR status @ -No What co-morbidities impacted this encounter? (DM, HTN, Smoking, COPD, CAD, Cancer, CVA, ARF, Chemo, Hep., AIDS, mental health diagnosis, sleep apnea, morbid obesity)? @ -None Was patient admitted / discharged? Hospital course, mention meds given and route, prescriptions, significant lab abnormalities, going to OR and other pertinent info. @ -Patient's lab work came back within normal range except for TSH which is extremely high but patient states he is normally on Synthroid but has not taken in quite a while. Patient also states he is on antibiotic but does not know what it is I had the pharmacy technicians look it up and the patient is on Augmentin for a throat infection so that will be continued as well as the patient we put on low-dose Synthroid Undiagnosed new problem with uncertain prognosis? @ -No Drug Therapy requiring intensive monitoring for toxicity (Heparin, Nitro, Insulin, Cardizem)? @ -No Were any procedures done? @ -No Diagnosis/symptom? @ -Acute psychosis Acute, or Chronic, or Acute on Chronic? @ -Acute Uncomplicated (without systemic symptoms) or Complicated (systemic symptoms)? @ -Complicated Side effects of treatment? @ -No Exacerbation, Progression, or Severe Exacerbation? @ -No Poses a threat to life or bodily function? How? (Chest pain, [place], [place], pneumonia, PE, COPD, DKA, ARF, appy, cholecystitis, CVA, Diverticulitis, Homicidal, Suicidal, threat to staff... and all critical care pts) @ -No Diagnosis/symptom? @ -Hypothyroid Acute, or Chronic, or Acute on Chronic? @ -Acute Uncomplicated (without systemic symptoms) or Complicated (systemic symptoms)? @ -Complicated Side effects of treatment? @ -None Exacerbation, Progression, or Severe Exacerbation] @ -No Poses a threat to life or bodily function? @ -No - Lab Data Result diagrams: 10/01/24 12:31 10/01/24 12:31 Lab Results 10/01/24 10/01/24 Range/Units 12: 12:31 WBC 9.4 (3.8-10.6) k/uL RBC 4.35 (4.30-5.90) m/uL Hgb 14.2 (13.0-17.5) gm/dL Hct 43.1 (39.0-53.0) % MCV 99.0 (80.0-100.0) fL MCH 32.7 (25.0-35.0) pg MCHC 33.0 (31.0-37.0) g/dL RDW 13.1 (11.5-15.5) % Plt Count 282 (150-450) k/uL MPV 7.8 Neutrophils % 63 % Lymphocytes % 28 % Monocytes % 7 % Eosinophils % 1 % Basophils % 0 % Neutrophils # 5.9 (1.3-7.7) k/uL Lymphocytes # 2.6 (1.0-4.8) k/uL Monocytes # 0.6 (0-1.0) k/uL Eosinophils # 0.1 (0-0.7) k/uL Basophils # 0.0 (0-0.2) k/uL Sodium 134 L (137-145) mmol/L Potassium 4.7 (3.5-5.1) mmol/L Chloride 100 (98-107) mmol/L Carbon Dioxide 26 (22-30) mmol/L Anion Gap 8 mmol/L BUN 23 H (9-20) mg/dL Creatinine 0.96 (0.66-1.25) mg/dL Est GFR (CKD-EPI)AfAm >90 (>60 ml/min/1.73 sqM) Est GFR (CKD-EPI)NonAf 86 (>60 ml/min/1.73 sqM) Glucose 99 (74-99) mg/dL Calcium 9.3 (8.4-10.2) mg/dL Total Bilirubin 0.5 (0.2-1.3) mg/dL AST 46 (17-59) U/L ALT 47 (4-49) U/L Alkaline Phosphatase 61 (38-126) U/L Total Protein 6.9 (6.3-8.2) g/dL Albumin 4.6 (3.5-5.0) g/dL TSH 28.000 H (0.465-4.680) mIU/L Disposition Clinical Impression: Psychosis, Hypothyroid Disposition: ADMITTED IP TO THIS [facility] Referrals: None,Stated [Primary Care Provider] - 1-2 days Time of Disposition: 14:00
[2024-10-01 12:48] LABS: Basophils % (A) 0 %; Eosinophils # (A) 0.1 k/uL (0-0.7); Eosinophils % (A) 1 %; HCT 43.1 % (39.0-53.0); HGB 14.2 gm/dL (13.0-17.5); Lymphocytes # (A) 2.6 k/uL (1.0-4.8); Lymphocytes % (A) 28 %; MCH 32.7 pg (25.0-35.0); Mean Platelet Volume 7.8; Monocytes # (A) 0.6 k/uL (0-1.0); Monocytes % (A) 7 %; Neutrophils # (A) 5.9 k/uL (1.3-7.7); Neutrophils % (A) 63 %; Platelet Count 282 k/uL (150-450); RBC 4.35 m/uL (4.30-5.90); RDW 13.1 % (11.5-15.5); WBC 9.4 k/uL (3.8-10.6)
[2024-10-01] MEDS: LIDOCAINE 4% PATCH TOPICAL ONE (12:55)
[2024-10-01 12:59] LABS: ALT 47 U/L (4-49); AST 46 U/L (17-59); African American GFR (CKD) >90 (>60 ml/min/1.73 sqM); Albumin 4.6 g/dL (3.5-5.0); Alkaline Phosphatase 61 U/L (38-126); Anion Gap 8 mmol/L; Blood Urea Nitrogen 23 mg/dL (9-20); Calcium 9.3 mg/dL (8.4-10.2); Carbon Dioxide 26 mmol/L (22-30); Chloride 100 mmol/L (98-107); Glucose 99 mg/dL (74-99); Non-African American GFR(CKD) 86 (>60 ml/min/1.73 sqM); Potassium 4.7 mmol/L (3.5-5.1); Sodium 134 mmol/L (137-145); Total Bilirubin 0.5 mg/dL (0.2-1.3); Total Protein 6.9 g/dL (6.3-8.2)
[2024-10-01 13:59] LABS: T4, Free (Free Thyroxine) 0.94 ng/dL (0.78-2.19)
[2024-10-01 14:22] LABS: Amphetamine Screen,Urine Not Detected (NotDetected); Barbiturate Screen,Urine Not Detected (NotDetected); Benzodiazepines Screen,Urine Not Detected (NotDetected); Cocaine Screen,Urine Not Detected (NotDetected); Methadone Screen, Urine Not Detected (NotDetected); Opiate Screen,Urine Not Detected (NotDetected); Oxycodone Screen, Urine Not Detected (NotDetected); Phencyclidine Screen,Urine Not Detected (NotDetected); Tricyclic Antidepressant,Urine Not Detected (NotDetected); Urn Cannabinoid Scrn Detected (NotDetected)
[2024-10-01] MEDS ORDERED: MAG HYDROX/AL HYDROX/SIMETH 355 ML BOTTLE PO PRN (20:00)
[2024-10-01] MEDS ORDERED: MAGNESIUM HYDROXIDE 2,400 MG/30 ML CUP PO PRN (20:00)
[2024-10-01] MEDS ORDERED: ACETAMINOPHEN TAB 325 MG TAB PO PRN (20:00)
[2024-10-01] MEDS ORDERED: haloperidoL 5 MG TAB PO PRN (20:00)
[2024-10-01] MEDS: AMOXIC-POT CLAV 875-125MG 1 EACH TAB PO SCH (21:02)
[2024-10-01] MEDS: NICOTINE 14MG/24HR PATCH TRANSDERM SCH (21:03)
[2024-10-01] MEDS: LORazepam 2 MG/ML INJ IM PRN (23:46)
[2024-10-02] MEDS ORDERED: LEVOTHYROXINE 75 MCG TAB PO SCH (06:30)
[2024-10-02] MEDS: ATORVASTATIN 40 MG TAB PO SCH (07:59)
[2024-10-02] MEDS: LEVOTHYROXINE 25 MCG TAB PO SCH (07:59)
[2024-10-02] MEDS: LORazepam 1 MG TAB PO PRN (08:00)
--- NOTE | 2024-10-02 13:47 | P.HP ---
Psychiatric H&P - . H&P Date: 10/02/24 History & Physical: Allergies Allergy/AdvReac Type Severity Reaction Status Date / Time NSAIDS (Non-Steroidal AdvReac Nausea Verified 10/01/24 14:02 Anti-Inflamma Vital Signs Temp 97.4 F L 10/02/24 09:00 Pulse 81 10/02/24 09:00 Resp 16 10/02/24 09:00 BP 144/84 10/02/24 09:00 Pulse Ox 97 10/02/24 09:00 FiO2 Intake & Output 10/01/24 10/02/24 10/02/24 18:59 06:59 18:59 Weight 78.925 kg Laboratory Last Values WBC 9.4 k/uL (3.8-10.6) 10/01/24 12: RBC 4.35 m/uL (4.30-5.90) 10/01/24 12:31 Hgb 14.2 gm/dL (13.0-17.5) 10/01/24 12:31 Hct 43.1 % (39.0-53.0) 10/01/24 12:31 MCV 99.0 fL (80.0-100.0) 10/01/24 12:31 MCH 32.7 pg (25.0-35.0) 10/01/24 12:31 MCHC 33.0 g/dL (31.0-37.0) 10/01/24 12:31 RDW 13.1 % (11.5-15.5) 10/01/24 12:31 Plt Count 282 k/uL (150-450) 10/01/24 12:31 MPV 7.8 10/01/24 12:31 Neutrophils % 63 % 10/01/24 12:31 Lymphocytes % 28 % 10/01/24 12:31 Monocytes % 7 % 10/01/24 12:31 Eosinophils % 1 % 10/01/24 12: Basophils % 0 % 10/01/24 12:31 Neutrophils # 5.9 k/uL (1.3-7.7) 10/01/24 12:31 Lymphocytes # 2.6 k/uL (1.0-4.8) 10/01/24 12: Monocytes # 0.6 k/uL (0-1.0) 10/01/24 12:31 Eosinophils # 0.1 k/uL (0-0.7) 10/01/24 12:31 Basophils # 0.0 k/uL (0-0.2) 10/01/24 12:31 Sodium 134 mmol/L (137-145) L 10/01/24 12:31 Potassium 4.7 mmol/L (3.5-5.1) 10/01/24 12:31 Chloride 100 mmol/L (98-107) 10/01/24 12:31 Carbon Dioxide 26 mmol/L (22-30) 10/01/24 12:31 Anion Gap 8 mmol/L 10/01/24 12:31 BUN 23 mg/dL (9-20) H 10/01/24 12:31 Creatinine 0.96 mg/dL (0.66-1.25) 10/01/24 12:31 Est GFR (CKD-EPI)AfAm >90 (>60 ml/min/1.73 sqM) 10/01/24 12:31 Est GFR (CKD-EPI)NonAf 86 (>60 ml/min/1.73 sqM) 10/01/24 12:31 Glucose 99 mg/dL (74-99) 10/01/24 12:31 Calcium 9.3 mg/dL (8.4-10.2) 10/01/24 12:31 Total Bilirubin 0.5 mg/dL (0.2-1.3) 10/01/24 12:31 AST 46 U/L (17-59) 10/01/24 12:31 ALT 47 U/L (4-49) 10/01/24 12:31 Alkaline Phosphatase 61 U/L (38-126) 10/01/24 12:31 Total Protein 6.9 g/dL (6.3-8.2) 10/01/24 12:31 Albumin 4.6 g/dL (3.5-5.0) 10/01/24 12:31 TSH 28.000 mIU/L (0.465-4.680) H 10/01/24 12:31 Free T4 0.94 ng/dL (0.78-2.19) 10/01/24 12:31 Urine Opiates Screen Not Detected (NotDetected) 10/01/24 13:48 Ur Oxycodone Screen Not Detected (NotDetected) 10/01/24 13:48 Urine Methadone Screen Not Detected (NotDetected) 10/01/24 13:48 Ur Barbiturates Screen Not Detected (NotDetected) 10/01/24 13:48 U Tricyclic Antidepress Not Detected (NotDetected) 10/01/24 13:48 Ur Phencyclidine Scrn Not Detected (NotDetected) 10/01/24 13:48 Ur Amphetamines Screen Not Detected (NotDetected) 10/01/24 13:48 U Methamphetamines Scrn Not Detected (NotDetected) 10/01/24 13:48 U Benzodiazepines Scrn Not Detected (NotDetected) 10/01/24 13:48 Urine Cocaine Screen Not Detected (NotDetected) 10/01/24 13:48 U Marijuana (THC) Screen Detected (NotDetected) H 10/01/24 13:48 SARS-CoV-2 (PCR) Not Detected (Not Detectd) 10/01/24 13:48 10/02/24 13:33 IDENTIFYING DATA: Patient is a CHIEF COMPLAINT: HPI: Patient presented to the hospital with. Per EPS, "Patient brought in on pickers material handlers order with petition completed by [facility]. Patient assessed in ER12 from . Patient states he is here because "someone had a problem I was down there". Patient states that he has not done anything wrong and does not know why he is here. Patient provided copy of petition per request. Patient states he has been having troubles with transportation and "circumstancial situations". Patient states he has bilateral hip pain and a hernia that needs repair. Patient verbalizes chronic pain when sitting or walking. Patient states that he has not taken any medications for mental health in over a year. Patient states he fired [facility] and cancelled their services because he feels like he does not need mental health treatment. Patient denies suicidal and homicidal ideations. Patient verbalizes history of hallucionations, refused to elaborate, but denies current hallucinations. Patient makes multiple delusional statements during assessment. Patient describes that he has called the police due to needing a ride multiple times but has not been able to call in 2 days because his phone is broken r/t "them attacking my phone". Patient also talks about how mahesh is his creator and how he will not be able to be admitted psychiatrically because god will keep him protected. Patient stated that principal technical writer is working for [employer] because I am doing "the devil's work". Patient not agreeable to treatment or medications. Per petition, [facility] has attempted to reach out multiple times but pt will not open the door to [facility]. Attached to petition is also a report from [facility] related to patient contacted dispatch and also others contacting PD for patient. Patient has contacted [facility] 31 times this year. Content of the calls have been ranging from patient asking for ride to medical appointments or hospitals for unlisted reasons, ranging to patient calling making suicidal statements, patient being disorderly or trespassing, or patient calling for PD or EMS services and then once they arrive patient declining services." Patient seen and evaluated on the unit and was agreeable with speaking to principal technical writer in the [facility]. He states he is here illegally as the police lied and that the paperwork is all false. Patient during interview did display labile mood, loud at times however was redirectable. He claims that he was recently hospitalized in the ICU in [place] after being given an NSAID which he is allergic to and that he was discharged on antibiotics. He claims to have suffered from from throat closure and reportedly was knocking on his neighbors door who themselves called the police despite the petition stated that he did not answer the door for his [facility] worker. Patient did display restorationism preoccupation, stated that the end is near and that the war in the [place] is going to result in a statue that is a woman being built and that we must all bow down to her. Patient did display paranoia, stating that someone has been and putting viruses on his phone. Patient denies any suicidal or homicidal ideations intent or plan. At this time patient denies any auditory or visual hallucinations. Patient denies any flight of ideas racing thoughts and increased in goal directed behavior. Patient admits to using occasional cannabis. PAST PSYCHIATRIC HISTORY: Patient has a history of schizoaffective disorder. Patient denies being on any psychiatric medications. He has tried Prolixin, Risperdal, Haldol, Tegretol previously. Patient has had 5 previous inpatient hospitalizations at this facility most recent being 10/2022. Patient denies any psychiatric outpatient follow-up. Patient denies any history of suicide attempts in the past. PMH: as per ER note ALLERGIES: as per EMR SUBSTANCE USE HISTORY: As per HPI FAMILY PSYCHIATRIC/SUBSTANCE USE HISTORY: Patient states his maternal aunt has schizophrenia and that his siblings all abuse substances. SOCIAL HISTORY: Patient is , has no children. He completed high school however is both retired and "dependent on God". He lives independently MENTAL STATUS EXAM: General Appearance: Patient appears to be stated age is alert, directable, and attempts to cooperate. Patient appears to have fair hygiene and grooming. Behavior: Patient is seated without any agitated behavior. He ambulates via [employer] Speech: Patient's speech is fluent and talkative Mood/Affect: Patient reports their mood is irritable, affect is congruent and labile Suicidality/Homicidality: Patient denies having any homicidal ideation intent or plan. Denies any suicidal ideations intent or plan Perceptions: Patient denies any visual hallucinations and denies any auditory hallucinations Though content/process: There is evidence of restorationism preoccupation, paranoia Memory and concentration: AOX3, grossly intact for the purposes of this session. Can spell "WORLD" backwards Judgment and insight: Poor STRENGTHS/WEAKNESSES: strength is that patient is resilient. Weakness is that patient has poor judgment/insight and is impulsive INTELLECT: Average IMPRESSIONS: Schizoaffective disorder, bipolar type Cannabis use disorder PLAN: -Patient is admitted under involuntary status to MHU for stabilization of psychiatric symptoms and safety. Patient has not signed adult voluntary form and and is placed in patient's chart. A second certification was completed and along with petition will be filed for court. -Medications : Start Invega 6 mg at bedtime for psychosis -Klonopin and Haldol PRN for agitation/aggression -Patient was counselled on substance abuse and desired to cut back on use -Patient was informed of the risks, benefits and side effects of the medication and patient verbally consented to taking the medications. Patient did not sign med consent form and was placed in chart. [Patient offered and accepted patient education sheet for antipsychotics.] -Internal Medicine consult to perform medical evaluation and physical. -NRT -not needed as patient does not smoke -SW on board for discharge planning. Encourage patient to participate in groups to work on coping skills. Will await deferral and court date.
--- NOTE | 2024-10-02 20:30 | P.CONS ---
History of Present Illness - Reason for Consult Consult date: 10/02/24 medical co-management - Chief Complaint Petition - History of Present Illness Michael Cedillo is a 63 yo M with a pmhx of tobacco use. The patient endorses that his had in 2015. the patient endorses he was on psychotropic medications with trileptal an olenzapine. he endorses he had autnomously weaned himself off these medications. He had presented to the hospital on 10/02/2024 in inpatient [facility] due to a petition. he endorses recently he was hospitalized at "[facility]" icu due to nsaid usage. he endorses he was allergic to nsaids. he also endorses being allergic to tylenol products. he informs me that he is due for a b/l hip arthoplasty. he endorses he is compliant with his levohtyroxine. he reports he also has a left inguinal hernia that is scheduled to be repaired. he is seen walking with a walker. Most recent vs show a temp of 97.4, hr of 61, rr of 16 and bp of 144/84. he was 97% on room air. Labwork shows a wbc of 9.4, hgb of 14.2, plateletcount count of 282. cmp had shown a k of 4.7, cr of 0.95. tsh of 28, free t4 of 0.94. uds was positive for cannabis. Review of Systems Pertinent positives and negatives as discussed in HPI, a complete review of systems was performed and all other systems are negative. Past Medical History Past Medical History: Hyperlipidemia, Hypertension, Thyroid Disorder Additional Past Medical History / Comment(s): hepatits c History of Any Multi-Drug Resistant Organisms: None Reported Past Surgical History: Appendectomy, Hernia Repair Additional Past Surgical History / Comment(s): 2 Hernia Repairs Past Anesthesia/Blood Transfusion Reactions: No Reported Reaction Past Psychological History: Anxiety, Bipolar, Depression, Schizophrenia Smoking Status: Current every day smoker Past Alcohol Use History: None Reported Past Drug Use History: None Reported Medications and Allergies Home Medications Medication Instructions Recorded Confirmed Type Amoxic-Pot Clav 875-125Mg 1 tab PO BID 10/01/24 10/01/24 History [Augmentin 875-125] clonazePAM [KlonoPIN] 0.5 mg PO BID PRN 10/01/24 10/01/24 History methylPREDNISolone Dose Pack See Taper PO DIRECTED 10/01/24 10/01/24 History [Medrol Dose Pack] Allergies Allergy/AdvReac Type Severity Reaction Status Date / Time NSAIDS (Non-Steroidal AdvReac Nausea Verified 10/01/24 14:02 Anti-Inflamma Physical Exam Vitals: Vital Signs Temp Pulse Resp BP Pulse Ox 10/02/24 09:00 97.4 F L 81 16 144/84 97 10/01/24 21:00 97.9 F 68 20 144/89 96 General: non toxic, no distress, appears stated age, seen walking with a walker Derm: warm, dry Head: atraumatic, normocephalic, symmetric Eyes: EOMI, no lid lag, anicteric sclera, ENT: Nose and ears atraumatic, no thrush, no pharyngeal erythema Neck: trachea midline, supple Mouth: no lip lesion, mucus membranes moist Cardiovascular: S1S2 reg, no murmur, Lungs: clear to ascultation bilateral, on room air Abdominal: soft, nontender to palpation, no guarding, no appreciable organomegaly, normal bowel sounds. left sided inguinal hernia noted. Ext: no gross muscle atrophy, Neuro: moving all extremeties spntanously Psych: defensive, racing thoughts. Results CBC & Chem 7: 10/01/24 12:31 10/01/24 12:31 Assessment and Plan Assessment: #) Schzioaffective disorder. management as per psychiatry team. Currently on paliperidone 6 nightly. #) b/l hip oa, should see orthopedics outpatient for consider of b/l arthoplasty.. reports allergy to nsaid usage. reports unable to tolerat acetaminophen. uses a walker #) hypothyroid dz. questionable compliance given elevated tsh. continue levothryoxine 25 mcg daily. recommend compliance #) Tobacco use. tobacco cessation. nicotine patch has been ordered #) hyperlipidemia continue atorvastatin 40 mg daily for hld #) Cannabis use. uds positive for cannabis. recommend cessation. Thank you for allowing us to take care of this patient. please do not hesitate to contact [facility] physicians for any questions. Time with Patient: Greater than 30
[2024-10-02] MEDS: clonazePAM 0.5 MG TAB PO ONE (21:05)
[2024-10-02] MEDS: PALIPERIDONE 6 MG TAB.ER.24 PO SCH (21:05)
--- NOTE | 2024-10-03 11:45 | P.PN ---
Progress Note - Text Progress Note Date: 10/03/24 Interval History: Patient was seen wandering the hallways and was directable and agreeable to sp neal with personal lines underwriter in the odom in private. Patient slept poorly overnight to which he states [place] usually helps. Patient continues to display mood lability, elevated mood and he was encouraged to maintain and respect boundaries regarding his intrusiveness with his peers. 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 He was goal oriented today. He reports feeling dizzy with the Invega overnight. Discussed with patient the possibility of adding a mood stabilizer such as lithium if Invega is not able to control his outbursts. Patient reports he plans on signing a deferral when the gas worker comes. He continues to be religiously preoccupied. At this time patient denies any suicidal or homicidal ideations, intent or plan. Patient denies any auditory, visual hallucinations and denies any paranoia. Patient has been compliant with meds. Mental Status Exam: General Appearance: Patient appears to be stated age is alert, directable, and cooperative. He ambulates via walker Behavior: Patient is calmly standing without any agitated behavior. Speech: Patient's speech is fluent and talkative but interruptible, loud volumes at time Mood/Affect: Mood is improving mildly, affect is congruent and labile. Suicidality/Homicidality: Patient denies having any suicidal or homicidal ideation intent or plan. Perceptions: Patient denies any visual hallucinations and denies any auditory hallucinations Though content/process: There is evidence of jew preoccupation, superficially linear Memory and concentration: AOX3, grossly intact for the purposes of this session Judgment and insight: Improving mildly Assessment Schizoaffective disorder, bipolar type Cannabis use disorder Plan: -Patient continues to meet criteria for inpatient psychiatric admission for symptom stabilization and safety. Patient has not signed adult voluntary form and medication consent and was placed in patient's chart. -Medications: Increase Invega to 9 mg at bedtime for psychosis -When necessary Klonopin and Haldol for agitation/aggression. -Labs: Reviewed -SW on board for discharge planning. Encouraged the patient to participate in milieu. Currently awaiting deferral with associate attorney and court date.
[2024-10-03] MEDS: PALIPERIDONE 3 MG TAB.ER.24 PO SCH (20:38)
[2024-10-03] MEDS: ZOLPIDEM 5 MG TAB PO SCH (20:40)
[2024-10-03] MEDS: HALOPERIDOL LACTATE 5 MG/ML 1 ML VIAL IM PRN (23:32)
--- NOTE | 2024-10-04 13:29 | P.PN ---
Progress Note - Text Progress Note Date: 10/04/24 Interval History: Patient was seen wandering the hallways and was directable and agreeable to sp eak with leader writer in the odom privately. Patient received as needed Haldol/Ativan IM yesterday given escalating agitation and verbal outburst. Patient today states that this was due to him being frustrated as he thought leader writer was going to see him again however leader writer did not mention this. He states staff are controlling, referring to them as Lucifer, still exhibiting some quaker preoccupation. This was discouraged and patient was informed to control his outburst as this will delay his discharge and this was the goal set today. Patient did not take his Invega yesterday to which he states he has been having dizziness and upset stomach from this. Patient feels as though he only needs to be on Klonopin however he was reminded of the reasons why he is here to which he states are all invalid. He did agree to switch from Invega to Haldol today. He reports only sleeping 3 hours last night with the Ambien but was agreeable with adding hydroxyzine as well. At this time patient denies any suicidal or homicidal ideations, intent or plan. Patient denies any auditory, visual hallucinations and denies any paranoia. Mental Status Exam: General Appearance: Patient appears to be stated age is alert, directable, and cooperative. He ambulates via walker Behavior: Patient is calmly seated without any agitated behavior. Speech: Patient's speech is fluent and talkative, loud volume at times but interruptible Mood/Affect: Mood is improving mildly, affect is congruent and labile. Suicidality/Homicidality: Patient denies having any suicidal or homicidal ideation intent or plan. Perceptions: Patient denies any visual hallucinations and denies any auditory hallucinations Though content/process: There is still evidence of quaker preoccupation Memory and concentration: AOX3, grossly intact for the purposes of this session Judgment and insight: Poor Assessment Schizoaffective disorder, bipolar type Cannabis use disorder Plan: -Patient continues to meet criteria for inpatient psychiatric admission for symptom stabilization and safety. Patient has not signed adult voluntary form and medication consent and was placed in patient's chart. -Medications: Discontinue Invega and start Haldol 5 mg at bedtime for psychosis given adverse effects, start hydroxyzine 50 mg at bedtime for insomnia, continue Ambien 10 mg at bedtime for sleep -When necessary Klonopin and Haldol for agitation/aggression. -Labs: Reviewed -SW on board for discharge planning. Encouraged the patient to participate in milieu. Currently awaiting deferral with privacy attorney and court date.
[2024-10-04] MEDS ORDERED: LITHIUM CARBONATE 300 MG CAP PO SCH (21:00)
[2024-10-05] MEDS: hydrOXYzine HCL 25 MG TAB PO SCH
[2024-10-05] MEDS: clonazePAM 0.5 MG TAB PO PRN (05:37)
--- NOTE | 2024-10-05 13:36 | P.PN ---
Progress Note - Text Progress Note Date: 10/05/24 Interval History: Patient was seen wandering the hallways and was directable and agreeable to sp neal with marketing writer in the odom privately. Patient did not have any outburst yesterday or required any as needed medications for agitation. He mentions sleeping better last night, reporting 4 hours and states that his baseline sleep is actually 2-3 hours. Patient displayed elevated, bright affect however did appear more slow than previously. He was reminded of the deferral today, is willing to give him a trial on oral medications however if he does not follow-up he will be transition to a long-acting injectable to which he acknowledged. He was reminded to follow-up with [facility] once discharged next week which he states [facility] does not like him however this was discouraged. He states his anxiety is better. At this time patient denies any suicidal or homicidal ideations, intent or plan. Patient denies any auditory, visual hallucinations and denies any paranoia or delusions. Patient denies any side effects from the medications and has been compliant with meds. Mental Status Exam: General Appearance: Patient appears to be stated age is alert, directable, and cooperative. He ambulates via walker Behavior: Patient is calmly standing without any agitated behavior. Speech: Patient's speech is fluent and talkative, less loud and more interruptible Mood/Affect: Mood is improving mildly, affect is congruent and expansive. Suicidality/Homicidality: Patient denies having any suicidal or homicidal ideation intent or plan. Perceptions: Patient denies any visual hallucinations and denies any auditory hallucinations Though content/process: Patient is less religiously preoccupied, more linear Memory and concentration: AOX3, grossly intact for the purposes of this session Judgment and insight: Historically poor however improving mildly Assessment Schizoaffective disorder, bipolar type Cannabis use disorder Plan: -Patient continues to meet criteria for inpatient psychiatric admission for symptom stabilization and safety. Patient has not signed adult voluntary form and medication consent and was placed in patient's chart. -Medications: Increase Haldol to 7.5 mg at bedtime for psychosis, continue hydroxyzine 50 mg at bedtime for insomnia, Ambien 10 mg at bedtime for sleep (will look at titrating this down over the weekend) -When necessary Klonopin and Haldol for agitation/aggression. -Labs: Reviewed -SW on board for discharge planning. Encouraged the patient to participate in milieu. Currently awaiting deferral with employment law attorney and court date. Anticipate discharge back home on Wednesday
[2024-10-05] MEDS ORDERED: haloperidoL 5 MG TAB PO SCH (21:00)
[2024-10-05] MEDS: haloperidoL 5 MG TAB PO SCH ×2 (22:32)
[2024-10-06] MEDS: ACETAMINOPHEN TAB 325 MG TAB PO PRN (11:06)
--- NOTE | 2024-10-06 11:53 | P.PN ---
Progress Note - Text Progress Note Date: 10/06/24 Interval History: Patient was seen in the [facility] and was directable and agreeable to speak with investigative writer in the [facility] privately. Patient continues to display less mood lability, irritability. He is less religiously preoccupied, sleeping more at night, active in groups. He has been adherent with his psychotropic medications and even mention now has revealed that this medication is for him and that he will continue to take this medication upon discharge and even requested [facility] getting blood levels to confirm this. He requests [place] for his hip pain at night as this does impact his sleep however he reports sleeping 7 hours overnight. He reports having a nightmare after sex. At this time patient denies any suicidal or homicidal ideations, intent or plan. Patient denies any auditory, visual hallucinations and denies any paranoia. Patient denies any side effects from the medications and has been compliant with meds. Mental Status Exam: General Appearance: Patient appears to be stated age is alert, directable, and cooperative. He ambulates via walker Behavior: Patient is calmly seated without any agitated behavior. Speech: Patient's speech is fluent and less talkative Mood/Affect: Mood is improving mildly, affect is congruent and reactive, less expansive. Suicidality/Homicidality: Patient denies having any suicidal or homicidal ideation intent or plan. Perceptions: Patient denies any visual hallucinations and denies any auditory hallucinations Though content/process: There is no evidence of any delusional thought content and thought process is linear and goal-directed. There were no yazidi preoccupations today Memory and concentration: AOX3, grossly intact for the purposes of this session Judgment and insight: Improving mildly Assessment Schizoaffective disorder, bipolar type Cannabis use disorder Plan: -Patient continues to meet criteria for inpatient psychiatric admission for symptom stabilization and safety. Patient has not signed adult voluntary form and medication consent and was placed in patient's chart. -Medications: Continue Haldol 7.5 mg at bedtime for psychosis, hydroxyzine 50 mg at bedtime for insomnia, decrease Ambien to 5 mg at bedtime for sleep for 2 nights and then discontinue -When necessary Klonopin and Haldol for agitation/aggression. -Labs: Reviewed -SW on board for discharge planning. Encouraged the patient to participate in milieu. Anticipate discharge home on Wednesday. Patient signed deferral and was adamant that he would take his meds and follow-up with [facility] upon discharge
[2024-10-06 19:38] LABS: Appearance,Urine Clear (Clear); Bilirubin,Urine Negative (Negative); Blood,Urine Negative (Negative); Color,Urine Colorless; Glucose,Urine (UA) Negative (Negative); Ketones,Urine Negative (Negative); Leukocyte Esterase,Urine Negative (Negative); Nitrite,Urine Negative (Negative); PH, Urine 6.5 (5.0-8.0); Protein,Urine Negative (Negative); Specific Gravity,Urine 1.007 (1.001-1.035); Urobilinogen,Urine <2.0 mg/dL (<2.0)
[2024-10-06] MEDS: HYDROcodone/APAP 5-325MG 1 EACH TAB PO PRN (21:40)
[2024-10-06] MEDS: ZOLPIDEM 5 MG TAB PO SCH (21:42)
--- NOTE | 2024-10-07 09:25 | P.PN ---
Progress Note - Text Progress Note Date: 10/07/24 Dictation was produced using [employer] dictation software. Please excuse any grammatical, word or spelling errors. Interval history: Patient was seen in the day room and was directable and agreeable to speak with the director underwriter sales in the office for psychiatric follow-up. The patient states that he has been doing really well, states that he is having hip pain and is looking to see a family Dr. states that he has has been calling his insurance to get an appointment, and he was not able to do so, states that he was talking to the SW in here about it. States that his mood is "cool," "I developed a good relation with Talha." He is hyperverabl, with tangential thought process, however is redirectable. States that he slept well last night, and he has been eating well. States that he is getting a long well with everyone here. Reported that depression, and anxiety at the low side, denied any current SI/HI or self harm. Denied any current AVH. Reported that he is still have racing thoughts however is easy to control. Sates that he has been taking his medications, and he denied any current side effects, denied any muscle stiffness, rigidity or abnormal movements. Mental status exam: General Appearance: Patient appears to be stated age is alert, directable, and cooperative. He ambulates via walker Behavior: Patient is calmly seated without any agitated behavior. Speech: Patient's speech is fluent and talkative, however redirectable Mood/Affect: Mood is improving mildly, affect is congruent and reactive. Suicidality/Homicidality: Patient denies having any suicidal or homicidal ideation intent or plan. Perceptions: Patient denies any visual hallucinations and denies any auditory kilpatrick llucinations Though content/process: There is no evidence of any delusional thought content and thought process is linear and goal-directed. Yarsani preoccupations at times Memory and concentration: AOX3, grossly intact for the purposes of this session Judgment and insight: Improving mildly Assessment: Schizoaffective disorder, bipolar type Cannabis use disorder Plan: Continue with current diagnosis. Patient continues to meet criteria for inpatient psychiatric admission for symptom stabilization and safety. Patient will be maintained on current psychotropic medication regimen which include Haldol 7.5 mg p.o. at bedtime, hydroxyzine 50 mg p.o. at bedtime, and Ambien 5 mg p.o. at bedtime which was decreased on Wednesday and plan to discontinue prior to discharge. Monitor for medication compliance and for any psychotropic medication side effects. Will continue to monitor ongoing response to treatment. Encouraged participation in milieu.
--- NOTE | 2024-10-08 08:39 | P.PN ---
Progress Note - Text Progress Note Date: 10/08/24 Dictation was produced using [employer] dictation software. Please excuse any grammatical, word or spelling errors. Interval history: Patient was seen in his room and was directable and agreeable to speak with the credit underwriter in the office for psychiatric follow-up. The patient states that he is feeling very well, "better than I have been in few months, I can think well, process information well." States that he slept well last night, and elaborate that he was not sleep that good for a long time. States that depression and anxiety are at the low side. Denied any current SI/HI or self harm, states that 'I will never do something like that, I can't hurt any Talha creation." Denied any racing thoughts, speech is getting better, not pressured. Admitted to good appetite. Denied any current AVH, or paranoia, reported that he feel safe while in the unit, getting along well with everyone. States that he has been taking his medications, denied any current side effects, denied any muscle stiffness, rigidity, abnormal movements or drooling. States that he want to follow up with outpatient psychiatrist following discharge. Also he would like to have a pcp. Mental status exam: General Appearance: Patient appears to be stated age is alert, directable, and cooperative. He ambulates via walker Behavior: Patient is calmly seated without any agitated behavior. Speech: Patient's speech is fluent and less talkative Mood/Affect: Mood is improving mildly, affect is congruent and reactive. Suicidality/Homicidality: Patient denies having any suicidal or homicidal ideation intent or plan. Perceptions: Patient denies any visual hallucinations and denies any auditory hallucinations Though content/process: There is no evidence of any delusional thought content and thought process is linear and goal-directed. Yazidism preoccupations at times Memory and concentration: AOX3, grossly intact for the purposes of this session Judgment and insight: Improving mildly Assessment: Schizoaffective disorder, bipolar type Cannabis use disorder Plan: Continue with current diagnosis. Patient continues to meet criteria for inpatient psychiatric admission for symptom stabilization and safety. Patient will be maintained on current psychotropic medication regimen which include Haldol 7.5 mg p.o. at bedtime, hydroxyzine 50 mg p.o. at bedtime, and Ambien 5 mg p.o. at bedtime which was decreased on Wednesday and plan to discontinue prior to discharge. Monitor for medication compliance and for any psychotropic medication side effects. Will continue to monitor ongoing response to treatment. Encouraged participation in milieu.
[2024-10-08] MEDS: hydrALAZINE HCL 10 MG TAB PO PRN (17:01)
[2024-10-09 09:57] VITALS: BP 155/78; PULSE 137; RESP 16; TEMP 97.7
--- NOTE | 2024-10-09 12:21 | P.DS ---
Providers Date of admission: 10/01/24 19:16 Expected date of discharge: 10/09/24 Attending physician: Frances Walsh MD Consults: 10/01/24 20:00 Consult Physician Routine Consulting Provider: Nicole Price Consult Reason/Comments: History and Physical, New Admission Do you want consulting provider notified?: Yes Primary care physician: Stated None - Discharge Diagnosis(es) (1) Schizoaffective disorder, bipolar type Status: Acute Priority: High (2) Cannabis abuse Status: Acute Priority: Low Hospital Course: Admission HPI: Admission note was completed by tech writer "Patient presented to the hospital with. Per EPS, "Patient brought in on mixing picker tender order with petition completed by [facility]. Patient assessed in ER12 from [id number]. Patient states he is here because "someone had a problem I was down there". Patient states that he has not done anything wrong and does not know why he is here. Patient provided copy of petition per request. Patient states he has been having troubles with transportation and "circumstancial situations". Patient states he has bilateral hip pain and a hernia that needs repair. Patient verbalizes chronic pain when sitting or walking. Patient states that he has not taken any medications for [facility] in over a year. Patient states he fired [facility] and cancelled their services because he feels like he does not need mental health treatment. Patient denies suicidal and homicidal ideations. Patient verbalizes history of hallucionations, refused to elaborate, but denies current hallucinations. Patient makes multiple delusional statements during assessment. Patient describes that he has called the police due to needing a ride multiple times but has not been able to call in 2 days because his phone is broken r/t "them attacking my phone". Patient also talks about how mahesh is his creator and how he will not be able to be admitted psychiatrically because god will keep him protected. Patient stated that tech writer is working for [employer] because I am doing "the devil's work". Patient not agreeable to treatment or medications. Per petition, [facility] has attempted to reach out multiple times but pt will not open the door to [facility]. Attached to petition is also a report from [facility] related to sulema ent contacted dispatch and also others contacting for patient. Patient has contacted [facility] 31 times this year. Content of the calls have been ranging from patient asking for ride to medical appointments or hospitals for unlisted reasons, ranging to patient calling making suicidal statements, patient being disorderly or trespassing, or patient calling for PD or EMS services and then once they arrive patient declining services." Patient seen and evaluated on the unit and was agreeable with speaking to tech writer in the [facility]. He states he is here illegally as the police lied and that the paperwork is all false. Patient during interview did display labile mood, loud at times however was redirectable. He claims that he was recently hospitalized in the ICU in [place] after being given an NSAID which he is allergic to and that he was discharged on antibiotics. He claims to have suffered from from throat closure and reportedly was knocking on his neighbors door who themselves called the police despite the petition stated that he did not answer the door for his [facility] worker. Patient did display baptism preoccupation, stated that the end is near and that the war in the [place] is going to result in a statue that is a woman being built and that we must all bow down to her. Patient did display paranoia, stating that someone has been and putting viruses on his phone. Patient denies any suicidal or homicidal ideations intent or plan. At this time patient denies any auditory or visual hallucinations. Patient denies any flight of ideas racing thoughts and increased in goal directed behavior. Patient admits to using occasional cannabis." Hospital course: Upon admission to the unit patient was admitted involuntarily on a petition and certificate and a second certificate was completed and faxed to the courts. Patient ended up signing a deferral with the civil rights attorney and agreeing to treatment.. Patient got along well with other patients on the unit and followed unit protocol however he did require some as needed medications at first due to verbal outburst with aggression however this later subsided with the initiation of treatment. Patient was compliant with the medications and denied any side effects throughout hospital course. Patient was started on Invega however this was discontinued due to adverse effects and patient was instead started on Haldol and this is increased to 7.5 mg at bedtime for psychosis, hydroxyzine 50 mg at bedtime for insomnia, Ambien was started however this was tapered off prior to discharge with sustained stability and sleep. Patient spoke of his stressors and engaged in therapy both group and individual. Patient was also seen by medical team for history and physical exam. Medical team did start patient on [place] as needed for hip pain. Throughout the course of the hospitalization patient gradually improved with regards to mood, anxiety, sleep and returned back to their baseline level of functioning. On the day of disc harge patient denied any suicidal or homicidal ideations intent or plan denied any auditory or visual hallucinations. The patient denied any access to guns or weapons. Patient denied any paranoia and did not endorse any delusions. Patient does not have a significant history of substance abuse and was counseled on abstaining from all substances including alcohol and marijuana. Patient was also counseled on the medications and need for regular compliance and was encouraged to follow-up with their outpatient appointment for mental health and also for primary care. Patient to be discharged back home alone with follow-up with [facility]. He was reminded of the deferral status and agreed to comply with [facility] appointments and medications. Mental status exam: General Appearance: Patient appears to be stated age is alert, pleasant, and cooperative. Patient is in no acute distress and has fair hygiene and grooming. He ambulates via walker Behavior: Patient is calmly seated without any agitated behavior. Speech: Patient's speech is fluent and nonpressured, less talkative. Mood/Affect: Patient reports their mood is "good", affect is congruent and euthymic. Suicidality/Homicidality: Patient denies having any suicidal or homicidal ideation intent or plan. Perceptions: Patient denies any auditory or visual hallucinations. Though content/process: There is no evidence of any delusional thought content and thought process is linear and goal-directed. More future oriented Memory and concentration: AOX3, grossly intact for the purposes of this session. Can spell "WORLD" backwards correctly. Judgment and insight: Fair Impression: Schizoaffective disorder, bipolar type Cannabis abuse Plan: -Continue with discharge today as patient has improved and stabilized psychiatrically and is not currently an imminent threat to themself and/or others. -Continue medications: Haldol 7.5 mg at bedtime, hydroxyzine 50 mg at bedtime -Patient was counseled on the need for medication compliance and appropriate follow-up at mental health and also primary care for medical issues. Patient verbalized understanding and agreed. -Social work to help coordinate patients discharge today. also to ensure safe home environment that guns/weapons are either removed from the home or locked away. Social work also to arrange for patients follow up appointments with [facility] for psychiatric care along with follow up with primary care provider. -Patient counseled on abstaining from recreational drugs and marijuana and alcohol. Was informed/educated on the adverse effects on their physical and mental health. Patient verbally agreed and understood. -Patient was instructed to return to the hospital or seek immediate medical care if their psychiatric or medical symptoms do worsen or reoccur. Abnormal Labs 10/01/24 10/01/24 12:31 13:48 Sodium 134 L BUN 23 H TSH 28.000 H U Marijuana (THC) Screen Detected H Vital Signs Temp 97.7 F 10/09/24 09:00 Pulse 137 H 10/09/24 09:00 Resp 16 10/09/24 09:00 BP 155/78 10/09/24 09:00 Pulse Ox 97 10/09/24 09:00 FiO2 Intake & Output 10/08/24 10/09/24 10/09/24 18:59 06:59 18:59 Weight 70.5 kg Allergies Allergy/AdvReac Type Severity Reaction Status Date / Time NSAIDS (Non-Steroidal AdvReac Nausea Verified 10/01/24 14:02 Anti-Inflamma Patient Condition at Discharge: Stable Plan - Discharge Summary Discharge Rx Participant: Yes New Discharge Prescriptions: New hydrOXYzine HCL [Atarax] 50 mg PO HS 30 Days #60 tab Atorvastatin [Lipitor] 40 mg PO DAILY #0 tab haloperidoL [Haldol] 7.5 mg PO HS 30 Days #45 tab Levothyroxine Sodium [Synthroid] 25 mcg PO DAILY@0630 tab Discontinued methylPREDNISolone Dose Pack [Medrol Dose Pack] See Taper PO DIRECTED clonazePAM [KlonoPIN] 0.5 mg PO BID PRN PRN Reason: Anxiety Amoxic-Pot Clav 875-125Mg [Augmentin 875-125] 1 tab PO BID Discharge Medication List Atorvastatin [Lipitor] 40 mg PO DAILY #0 tab 10/09/24 [Rx] Levothyroxine Sodium [Synthroid] 25 mcg PO DAILY@0630 tab 10/09/24 [Rx] haloperidoL [Haldol] 7.5 mg PO HS 30 Days #45 tab 10/09/24 [Rx] hydrOXYzine HCL [Atarax] 50 mg PO HS 30 Days #60 tab 10/09/24 [Rx] Follow up Appointment(s)/Referral(s): [facility] [Outside] - 10/10/24 12:00 pm (with Cuca ) [facility] [NON-STAFF] - 1 Week Patient Instructions/Handouts: Bipolar Disorder (DC), Schizoaffective Disorder (DC) Activity/Diet/Wound Care/Special Instructions: [facility] Discharge Info Avoid the use of street drugs and alcohol. Take all medications as prescribed. When you are in need of refills on your medications, please contact your outpatient medical provider and/or outpatient psychiatrist. Please go to your scheduled outpatient appointments for aftercare treatment. If symptoms return or become worse, call the crisis line at or and/or visit the nearest emergency room for assistance. National Suicide and Crisis Lifeline - call or text 823 Discharge Disposition: HOME SELF-CARE
== END 2024-10-09 11:50 | disposition home or self-care (01) | DRG 761 ==
LOC: EC 10:53 → 3MHU 19:16
PROVIDERS: ADMIT Psychiatry & Neurology Psychiatry; ATTEND Psychiatry & Neurology Psychiatry
DX: F25.0 Schizoaffective disorder, bipolar type (principal); E03.9 Hypothyroidism, unspecified; F12.10 Cannabis abuse, uncomplicated; F17.210 Nicotine dependence, cigarettes, uncomplicated; M16.0 Bilateral primary osteoarthritis of hip; F41.9 Anxiety disorder, unspecified; K30 Functional dyspepsia; T43.596A Underdosing of other antipsychotics and neuroleptics, initial encounter; K40.90 Unilateral inguinal hernia, without obstruction or gangrene, not specified as recurrent; T50.996A Underdosing of other drugs, medicaments and biological substances, initial encounter; Z91.128 Patient's intentional underdosing of medication regimen for other reason; Z91.198 Patient's noncompliance with other medical treatment and regimen for other reason; Z79.899 Other long term (current) drug therapy; Z88.6 Allergy status to analgesic agent; Z79.890 Hormone replacement therapy; Z59.82 Transportation insecurity; Z81.8 Family history of other mental and behavioral disorders; Z81.3 Family history of other psychoactive substance abuse and dependence
CPT/HCPCS: 36415; 80053; 80306; 81003; 82075; 84439; 84443; 85025; 87635; 99285

== ENCOUNTER 2024-10-22 16:46 | Emergency (ER) | payer OTHER ==
[2024-10-22 17:13] VITALS: BP 165/94; PULSE 71; RESP 18; TEMP 98.4
--- NOTE | 2024-10-22 19:09 | ED ---
Psych HPI - General Chief Complaint: Psychiatric Symptoms Stated Complaint: depression, mental health Time Seen by Provider: 10/22/24 19:05 Source: patient, RN notes reviewed Mode of arrival: wheelchair - History of Present Illness Initial Comments: 63-year-old male presenting for medication issue. States he was recently discharged after admission to the psychiatric unit. States he wants to be readmitted to 3 . Denies suicidal or homicidal ideation. While in the waiting room, he remembers that he has an upcoming appointment with [facility] in 2 days and feels admission is no longer necessary. No medical complaints at this time - Related Data Previous Rx's Medication Instructions Recorded Atorvastatin [Lipitor] 40 mg PO DAILY #0 tab 10/09/24 Levothyroxine Sodium [Synthroid] 25 mcg PO DAILY@0630 tab 10/09/24 haloperidoL [Haldol] 7.5 mg PO HS 30 Days #45 tab 10/09/24 hydrOXYzine HCL [Atarax] 50 mg PO HS 30 Days #60 tab 10/09/24 Allergies Allergy/AdvReac Type Severity Reaction Status Date / Time NSAIDS (Non-Steroidal AdvReac Nausea Verified 10/22/24 17:13 Anti-Inflamma Review of Systems ROS Statement: Those systems with pertinent positive or pertinent negative responses have been documented in the HPI. ROS Other: All systems not noted in ROS Statement are negative. Past Medical History Past Medical History: Hyperlipidemia, Hypertension, Thyroid Disorder Additional Past Medical History / Comment(s): hepatits c History of Any Multi-Drug Resistant Organisms: None Reported Past Surgical History: Appendectomy, Hernia Repair Additional Past Surgical History / Comment(s): 2 Hernia Repairs Past Anesthesia/Blood Transfusion Reactions: No Reported Reaction Past Psychological History: Anxiety, Bipolar, Depression, Schizophrenia Smoking Status: Current every day smoker General Exam Limitations: no limitations General appearance: alert, in no apparent distress Head exam: Present: atraumatic, normocephalic, normal inspection Neurological exam: Present: alert, oriented X3 Psychiatric exam: Present: normal affect, normal mood. Absent: homicidal ideation, suicidal ideation Skin exam: Present: warm, dry, intact, normal color. Absent: rash Course Vital Signs 10/22/24 17:09 Temperature 98.4 F Pulse Rate 71 Respiratory 18 Rate Blood Pressure 165/94 O2 Sat by Pulse 98 Oximetry Medical Decision Making - Medical Decision Making Was pt. sent in by a medical professional or institution (, [facility], [employer], urgent care, hospital, or custodial...) When possible be specific @ -No Did you speak to anyone other than the patient for history (EMS, parent, family, police, friend...)? What history was obtained from this source @ -No Did you review nursing and triage notes (agree or disagree)? Why? @ -I reviewed and agree with nursing and triage notes Were old charts reviewed (outside hosp., previous admission, EMS record, old EKG, old radiological studies, urgent care reports/EKG's, custodial records)? Report findings @ -No old charts were reviewed Differential Diagnosis (chest pain, altered mental status, abdominal pain women, abdominal pain men, vaginal bleeding, weakness, fever, dyspnea, syncope, headache, dizziness, GI bleed, back pain, seizure, CVA, palpatations, mental health, musculoskeletal)? @ -Differential Mental Health Depression, anxiety, bipolar, psychosis, schizophrenia, borderline personality, situational depression, adjustment disorder, behavioral disorder, brain tumor, malingering, substance abuse, encephalopathy, medication reaction, dementia, hypothyroidism, degenerative neurologic disorder, lupus.... This is not meant to be all-inclusive list EKG interpreted by me (3pts min.). @ -As above X-rays interpreted by me (1pt min.). @ -None done CT interpreted by me (1pt min.). @ -None done U/S interpreted by me (1pt. min.). @ -None done What testing was considered but not performed or refused? (CT, X-rays, U/S, labs)? Why? @ -None What meds were considered but not given or refused? Why? @ -None Did you discuss the management of the patient with other professionals (professionals i.e. [facility] Garcia, [employer], lab, RT, psych nurse, social sciences lecturer, spiral weaver, teacher, fisheries officer, assistant case manager)? Give summary @ -I spoke with Sandra from EPS who determines patient does not meet inpatient criteria for psychiatric admission Was smoking cessation discussed for >3mins.? @ -No Was critical care preformed (if so, how long)? @ -No Were there social determinants of health that impacted care today? How? (Homelessness, low income, unemployed, alcoholism, drug addiction, transport ation, low edu. Level, literacy, decrease access to med. care, custodial, rehab)? @ -No Was there de-escalation of care discussed even if they declined (Discuss DNR or withdrawal of care, Hospice)? DNR status @ -No What co-morbidities impacted this encounter? (DM, HTN, Smoking, COPD, CAD, Cancer, CVA, ARF, Chemo, Hep., AIDS, mental health diagnosis, sleep apnea, morbid obesity)? @ -None Was patient admitted / discharged? Hospital course, mention meds given and route, prescriptions, significant lab abnormalities, going to OR and other pertinent info. @ -Discharge. 63-year-old male presenting for medication issue. States he was recently discharged from psychiatric hospitalization and would like to be readmitted to 3 W. Denies hallucinations, suicidal or homicidal ideation. While he is in the waiting room, he remembers that he has a upcoming appointment with [facility] in 2 days and feels admission is no longer necessary. I spoke with Sandra from EPS who determines patient does not meet inpatient criteria for psychiatric admission and can be safely discharged with close follow-up. Patient eloped from the ER before discharge papers were given. Case was discussed with my ED attending Dr. Walsh Undiagnosed new problem with uncertain prognosis? @ -No Drug Therapy requiring intensive monitoring for toxicity (Heparin, Nitro, Insulin, Cardizem)? @ -No Were any procedures done? @ -No Diagnosis/symptom? @ -Mental health issue Acute, or Chronic, or Acute on Chronic? @ -Acute Uncomplicated (without systemic symptoms) or Complicated (systemic symptoms)? @ -Uncomplicated Side effects of treatment? @ -No Exacerbation, Progression, or Severe Exacerbation? @ -No Poses a threat to life or bodily function? How? (Chest pain, [place], [place], pneumonia, PE, COPD, DKA, ARF, appy, cholecystitis, CVA, Diverticulitis, Homicidal, Suicidal, threat to staff... and all critical care pts) @ -Not at this time Disposition Clinical Impression: Mental health problem Disposition: HOME SELF-CARE Condition: Stable Additional Instructions: Follow-up for upcoming PCP and [facility] appointments. Please return to the Emergency Department if symptoms worsen or any other concerns. Is patient prescribed a controlled substance at d/c from ED?: No Referrals: None,Stated [Primary Care Provider] - 1-2 days Time of Disposition: 01:23
== END 2024-10-22 19:11 | disposition home or self-care (01) ==
LOC: EC 16:46
DX: F99 Mental disorder, not otherwise specified (principal); F17.200 Nicotine dependence, unspecified, uncomplicated; Z88.6 Allergy status to analgesic agent
CPT/HCPCS: 99284

== ENCOUNTER 2024-12-20 04:39 | Emergency (ER) | payer OTHER ==
[2024-12-20 04:46] VITALS: RESP 18
--- NOTE | 2024-12-20 06:16 | ED ---
Back Pain HPI - General Chief Complaint: Back Pain/Injury Stated Complaint: Back Pain Time Seen by Provider: 12/20/24 05:57 Source: patient, RN notes reviewed, old records reviewed Limitations: no limitations - History of Present Illness Initial Comments: This is a 64-year-old male to the ER for evaluation of back pain right-sided back pain worse with movement. Patient states has been walking around a lot of luggage throughout the course of the days he is recently homeless and looking for a place to live. Pain is worse when he moves moves worse when he rolls worsening bends over or worsen he moves his right arm worse with any twisting motion. But no trauma. Able to ambulate without difficulty and patient is sleeping upon my initial evaluation MD Complaint: back pain, back injury -: hour(s) Severity: mild Severity scale (1-10): 2 Consistency: intermittent Improves With: none Worsens With: medication Context: while lifting, turning/twisting Associated Symptoms: denies other symptoms - Related Data Previous Rx's Medication Instructions Recorded Atorvastatin [Lipitor] 40 mg PO DAILY #0 tab 10/09/24 Levothyroxine Sodium [Synthroid] 25 mcg PO DAILY@0630 tab 10/09/24 haloperidoL [Haldol] 7.5 mg PO HS 30 Days #45 tab 10/09/24 hydrOXYzine HCL [Atarax] 50 mg PO HS 30 Days #60 tab 10/09/24 Allergies Allergy/AdvReac Type Severity Reaction Status Date / Time NSAIDS (Non-Steroidal AdvReac Nausea Verified 12/20/24 04:42 Anti-Inflamma Review of Systems ROS Statement: Those systems with pertinent positive or pertinent negative responses have been documented in the HPI. ROS Other: All systems not noted in ROS Statement are negative. Past Medical History Past Medical History: Hyperlipidemia, Hypertension, Thyroid Disorder Additional Past Medical History / Comment(s): hepatits c History of Any Multi-Drug Resistant Organisms: None Reported Past Surgical History: Appendectomy, Hernia Repair Additional Past Surgical History / Comment(s): 2 Hernia Repairs Past Anesthesia/Blood Transfusion Reactions: No Reported Reaction Past Psychological History: Anxiety, Bipolar, Depression, Schizophrenia Smoking Status: Current every day smoker Past Alcohol Use History: None Reported Past Drug Use History: Marijuana General Exam Limitations: no limitations General appearance: alert, in no apparent distress Head exam: Present: atraumatic, normocephalic, normal inspection Eye exam: Present: normal appearance, PERRL, EOMI. Absent: scleral icterus, conjunctival injection, periorbital swelling ENT exam: Present: normal exam, mucous membranes moist Neck exam: Present: normal inspection. Absent: tenderness, meningismus, lymphadenopathy Respiratory exam: Present: normal lung sounds bilaterally. Absent: respiratory distress, wheezes, rales, rhonchi, stridor Cardiovascular Exam: Present: regular rate, normal rhythm, normal heart sounds. Absent: systolic murmur, diastolic murmur, rubs, gallop, clicks GI/Abdominal exam: Present: soft, normal bowel sounds. Absent: distended, tenderness, guarding, rebound, rigid Extremities exam: Present: normal inspection, full ROM, normal capillary refill. Absent: tenderness, pedal edema, joint swelling, calf tenderness Back exam: Present: normal inspection Neurological exam: Present: alert, oriented X3, CN II-XII intact Psychiatric exam: Present: normal affect, normal mood Skin exam: Present: warm, dry, intact, normal color. Absent: rash Course Vital Signs 12/20/24 04:42 Temperature 97.6 F Pulse Rate 59 L Respiratory 18 Rate Blood Pressure 149/90 O2 Sat by Pulse 99 Oximetry - Reevaluation(s) Reevaluation #1: 12/20/24 06:15 Medical records reviewed Reevaluation #2: 12/20/24 06:15 Patient symptoms improved Reevaluation #3: 12/20/24 06:15 Patient informed of results and questions answered Reevaluation #4: Was pt. sent in by a medical professional or institution (, PA, SHOE IRONER, urgent care, hospital, or [facility]...) When possible be specific @ -no Did you speak to anyone other than the patient for history (EMS, parent, family, police, friend...)? What history was obtained from this source @ -no Did you review nursing and triage notes (agree or disagree)? Why? @ -agree Are old charts reviewed (outside hosp., previous admission, EMS record, old EKG, old radiological studies, urgent care reports/EKG's, [facility] records)? Report findings @ -yes Differential Diagnosis (chest pain, altered mental status, abdominal pain women, abdominal pain men, vaginal bleeding, weakness, fever, dyspnea, syncope, headache, dizziness, GI bleed, back pain, seizure, CVA, palpatations, mental health, musculoskeletal)? @ -prior EKG interpreted by me (3pts min.). @ -yes X-rays interpreted by me (1pt min.). @ -yes negative for acute disease CT interpreted by me (1pt min.). @ -no U/S interpreted by me (1pt. min.). @ -no What testing was considered but not performed or refused? (CT, X-rays, U/S, labs)? Why? @ -none What meds were considered but not given or refused? Why? @ -none Did you discuss the management of the patient with other professionals (professionals i.e. DrCedrick, PA, SHOE IRONER, lab, RT, psych nurse, social services coordinator, tax examining technician, teacher, chief technology officer, heel caser)? Give summary @ -no Was smoking cessation discussed for >3mins.? @ -no Was critical care preformed (if so, how long)? @ -no Were there social determinants of health that impacted care today? How? (Homelessness, low income, unemployed, alcoholism, drug addiction, transportation, low edu. Level, literacy, decrease access to med. care, long term, rehab)? @ -none Was there de-escalation of care discussed even if they declined (Discuss DNR or withdrawal of care, Hospice)? DNR status @ -no What co-morbidities impacted this encounter? (DM, HTN, Smoking, COPD, CAD, Cancer, CVA, ARF, Chemo, Hep., AIDS, mental health diagnosis, sleep apnea, morbid obesity)? @ -none Was patient admitted / discharged? Hospital course, mention meds given and route, prescriptions, significant lab abnormalities, going to OR and other pertinent info. @ - Undiagnosed new problem with uncertain prognosis? @ -no Drug Therapy requiring intensive monitoring for toxicity (Heparin, Nitro, Insulin, Cardizem)? @ -no Were any procedures done? @ -no Diagnosis/symptom? @ - Acute, or Chronic, or Acute on Chronic? @ -Acute Uncomplicated (without systemic symptoms) or Complicated (systemic symptoms)? @ -Complicated Side effects of treatment? @ -no Exacerbation, Progression, or Severe Exacerbation? @ -exacerbation Poses a threat to life or bodily function? How? (Chest pain, [place], [place], pneumonia, PE, COPD, DKA, ARF, appy, cholecystitis, CVA, Diverticulitis, Homicidal, Suicidal, threat to staff... and all critical care pts) @ -yes Reevaluation #5: Differential Back Pain: Strain, zoster, cauda equina syndrome, epidural abscess, vertebral osteomyelitis, discitis, fracture, subluxation, disc herniation, DJD, spinal stenosis, dissection, AAA, pancreatitis, peptic ulcer disease, pyelonephritis, kidney stone, this is not meant to be an all-inclusive list. Medical Decision Making - Medical Decision Making 64 male with pain adequately controlled right-sided back pain, patient is recently homeless can be discharged home Disposition Clinical Impression: Mid back pain, Thoracic back pain, Strain of lumbar region Disposition: HOME SELF-CARE Condition: Fair Instructions (If sedation given, give patient instructions): Acute Low Back Pain (ED) Is patient prescribed a controlled substance at d/c from ED?: No Referrals: None,Stated [Primary Care Provider] - 1-2 days Time of Disposition: 07:00
[2024-12-20] MEDS: ACETAMINOPHEN TAB 500 MG TAB PO STA (06:58)
[2024-12-20] MEDS: traMADol 50 MG TAB PO STA (06:59)
[2024-12-20] MEDS: traMADol 50 MG STARTER PACK 3 TAB BTL PO STA (06:59)
[2024-12-20 07:05] VITALS: BP 141/79; PULSE 62; TEMP 97.8
== END 2024-12-20 07:05 | disposition home or self-care (01) ==
LOC: EC 04:39 → EEVIPCON 04:39 → EC 07:05
DX: S39.012A Strain of muscle, fascia and tendon of lower back, initial encounter (principal); M54.6 Pain in thoracic spine; F17.200 Nicotine dependence, unspecified, uncomplicated; Z88.6 Allergy status to analgesic agent; X50.0XXA Overexertion from strenuous movement or load, initial encounter
CPT/HCPCS: 99283

== ENCOUNTER 2025-01-05 00:27 | Emergency (ER) | payer OTHER ==
[2025-01-05] MEDS: SODIUM CHLORIDE 0.9% 1,000 ML IV ONE (01:33)
[2025-01-05] MEDS: ONDANSETRON 4 MG/2 ML VIAL IVP STA (01:34)
[2025-01-05] MEDS: PANTOPRAZOLE 40 MG/10 ML VIAL IVP STA (01:34)
[2025-01-05 02:01] LABS: Basophils # (A) 0.01 10*3/uL (0.00-0.10); Basophils % (A) 0.1 %; Eosinophils # (A) 0.01 10*3/uL (0.04-0.35); Eosinophils % (A) 0.1 %; HCT 45.7 % (39.6-50.0); HGB 16.2 g/dL (13.0-17.0); Lymphocytes # (A) 0.81 10*3/uL (0.90-5.00); Lymphocytes % (A) 6.4 %; MCH 33.5 pg (27.0-32.0); MCHC 35.4 g/dL (32.0-37.0); MCV 94.6 fL (80.0-97.0); Monocytes # (A) 0.29 10*3/uL (0.20-1.00); Monocytes % (A) 2.3 %; Neutrophils # (A) 11.40 10*3/uL (1.80-7.70); Neutrophils % (A) 90.7 %; Platelet Count 315 10*3/uL (140-440); RBC 4.83 10*6/uL (4.40-5.60); RDW 12.5 % (11.5-14.5); WBC 12.57 10*3/uL (4.50-10.00)
[2025-01-05 02:08] LABS: ALT 29 U/L (4-49); AST 34 U/L (17-59); African American GFR (CKD) 76 (>60 ml/min/1.73 sqM); Albumin 4.1 g/dL (3.5-5.0); Alkaline Phosphatase 72 U/L (38-126); Anion Gap 11 mmol/L; Blood Urea Nitrogen 28 mg/dL (9-20); Calcium 9.7 mg/dL (8.4-10.2); Carbon Dioxide 29 mmol/L (22-30); Chloride 99 mmol/L (98-107); Glucose 122 mg/dL (74-99); Lipase 67 U/L (23-300); Non-African American GFR(CKD) 66 (>60 ml/min/1.73 sqM); Potassium 3.7 mmol/L (3.5-5.1); Sodium 139 mmol/L (137-145); Total Protein 6.4 g/dL (6.3-8.2)
[2025-01-05] MEDS ORDERED: ONDANSETRON 4 MG ODT STARTER PACK 2 TAB BTL PO STA (03:18)
--- NOTE | 2025-01-05 03:18 | ED ---
General Adult HPI - General Chief complaint: Nausea/Vomiting/Diarrhea Stated complaint: weakness Time Seen by Provider: 01/05/25 01:10 Source: patient, EMS, RN notes reviewed, old records reviewed Mode of arrival: EMS - History of Present Illness Initial comments: 64-year-old male with past medical history remarkable for psychiatric illness who presents emergency department complaining of nausea and vomiting. States he had some sudden onset of nausea just prior to arrival with some nonbilious nonbloody emesis. Denies abdominal pain. Denies chest pain or shortness of breath. Denies fevers or chills. Denies any constipation or diarrhea. Denies any blood in his vomit. Presents for further evaluation at this time. - Related Data Previous Rx's Medication Instructions Recorded Atorvastatin [Lipitor] 40 mg PO DAILY #0 tab 10/09/24 Levothyroxine Sodium [Synthroid] 25 mcg PO DAILY@0630 tab 10/09/24 haloperidoL [Haldol] 7.5 mg PO HS 30 Days #45 tab 10/09/24 hydrOXYzine HCL [Atarax] 50 mg PO HS 30 Days #60 tab 10/09/24 Allergies Allergy/AdvReac Type Severity Reaction Status Date / Time NSAIDS (Non-Steroidal AdvReac Nausea Verified 01/05/25 00:32 Anti-Inflamma Review of Systems ROS Statement: Those systems with pertinent positive or pertinent negative responses have been documented in the HPI. Review of Systems: CONST: Denies fever EYES: Denies blurry vision ENT: Denies nasal congestion C/V: Denies Chest pain RESP: Denies shortness of breath GI: Denies abdominal pain : Denies dysuria SKIN: Denies rash. MSK: Denies joint pain. NEURO: Denies headache ROS Other: All systems not noted in ROS Statement are negative. Past Medical History Past Medical History: Hyperlipidemia, Hypertension, Thyroid Disorder Additional Past Medical History / Comment(s): hepatits c History of Any Multi-Drug Resistant Organisms: None Reported Past Surgical History: Appendectomy, Hernia Repair Additional Past Surgical History / Comment(s): 2 Hernia Repairs Past Anesthesia/Blood Transfusion Reactions: No Reported Reaction Past Psychological History: Anxiety, Bipolar, Depression, Schizophrenia Smoking Status: Current every day smoker Past Alcohol Use History: None Reported Past Drug Use History: Marijuana General Exam - General Exam Comments Initial Comments: General: Appears in no acute distress. HEAD: Normal with no signs of head trauma. EYES: EOMI ENT: Hearing grossly intact, normal oropharynx. RESPIRATORY: Clear breath sounds bilaterally. No wheezes, rales, or rhonchi. C/V: Regular rate and rhythm. S1 and S2 auscultated, no edema, peripheral pulses 2+ and intact throughout ABD: Abd is soft, nontender, nondistended EXT: No obvious deformity SKIN: No rashes or lesions observed on exposed skin. NEURO: Alert and oriented x 4. Course Vital Signs 01/05/25 00:28 Temperature 98.5 F Pulse Rate 73 Respiratory 18 Rate Blood Pressure 158/94 O2 Sat by Pulse 97 Oximetry Medical Decision Making - Medical Decision Making Was pt. sent in by a medical professional or institution (IVA Garcia, RN ORTHO, urgent care, hospital, or residential...) When possible be specific @ -No Did you speak to anyone other than the patient for history (EMS, parent, family, police, friend...)? What history was obtained from this source @ -No Did you review nursing and triage notes (agree or disagree)? Why? @ -I reviewed and agree with nursing and triage notes Were old charts reviewed (outside hosp., previous admission, EMS record, old EKG, old radiological studies, urgent care reports/EKG's, residential records)? Report findings @ -No old charts were reviewed Differential Diagnosis (chest pain, altered mental status, abdominal pain women, abdominal pain men, vaginal bleeding, weakness, fever, dyspnea, syncope, headache, dizziness, GI bleed, back pain, seizure, CVA, palpatations, mental health, musculoskeletal)? @ -Electrolyte abnormality, nausea and vomiting, dehydration. This list is not all-inclusive. EKG interpreted by me (3pts min.). @ -As above X-rays interpreted by me (1pt min.). @ -None done CT interpreted by me (1pt min.). @ -None done U/S interpreted by me (1pt. min.). @ -None done What testing was considered but not performed or refused? (CT, X-rays, U/S, labs)? Why? @ -None What meds were considered but not given or refused? Why? @ -None Did you discuss the management of the patient with other professionals (professionals i.e. IVA Garcia, RN ORTHO, lab, RT, psych nurse, forensic social worker, scheduler conveyor, teacher, digital controls technical officer, machine adjuster leader case trim)? Give summary @ -No Was smoking cessation discussed for >3mins.? @ -No Was critical care preformed (if so, how long)? @ -No Were there social determinants of health that impacted care today? How? (Homelessness, low income, unemployed, alcoholism, drug addiction, transportation, low edu. Level, literacy, decrease access to med. care, retirement, rehab)? @ -No Was there de-escalation of care discussed even if they declined (Discuss DNR or withdrawal of care, Hospice)? DNR status @ -No What co-morbidities impacted this encounter? (DM, HTN, Smoking, COPD, CAD, Cancer, CVA, ARF, Chemo, Hep., AIDS, mental health diagnosis, sleep apnea, morbid obesity)? @ -None Was patient admitted / discharged? Hospital course, mention meds given and route, prescriptions, significant lab abnormalities, going to OR and other pertinent info. @ -Patient presents with nausea and vomiting. Does have a psychiatric history. Vital signs are within acceptable limits. Will obtain general abdominal labs and patient better with IV fluids as well as nausea meds. Patient was in agreement this plan. EKG shows no signs of acute ischemia. Laboratory studies remarkable for leukocytosis of 12 which is likely reactive. Remainder of the labs unremarkable. On reevaluation, patient is tolerating oral intake. He will be discharged home at this time. He was in agreement this plan. I will provide the patient with a prescription for ODT Zofran starter pack. I instructed the patient to follow up with their PCP in the next 1-3 days.. I ex plained that the patient should return to the emergency department if they experience any worsening symptoms. Strict return precautions were discussed with the patient. The patient expressed understanding of these instructions. I answered all questions that the patient had. The patient was discharged home in good condition with their prescriptions and follow up information. Undiagnosed new problem with uncertain prognosis? @ -No Drug Therapy requiring intensive monitoring for toxicity (Heparin, Nitro, Insulin, Cardizem)? @ -No Were any procedures done? @ -No Diagnosis/symptom? @ -Nausea and vomiting Acute, or Chronic, or Acute on Chronic? @ -Acute Uncomplicated (without systemic symptoms) or Complicated (systemic symptoms)? @ -Uncomplicated Side effects of treatment? @ -No Exacerbation, Progression, or Severe Exacerbation? @ -No Poses a threat to life or bodily function? How? (Chest pain, [place], [place], pneumonia, PE, COPD, DKA, ARF, appy, cholecystitis, CVA, Diverticulitis, Homicidal, Suicidal, threat to staff... and all critical care pts) @ -Unlikely at this time - Lab Data Result diagrams: 01/05/25 01:26 01/05/25 01: Lab Results 01/05/25 01/05/25 Range/Units : 01:26 WBC 12.57 H (4.50-10.00) 10*3/uL RBC 4.83 (4.40-5.60) 10*6/uL Hgb 16.2 (13.0-17.0) g/dL Hct 45.7 (39.6-50.0) % MCV 94.6 (80.0-97.0) fL MCH 33.5 H (27.0-32.0) pg MCHC 35.4 (32.0-37.0) g/dL Plt Count 315 (140-440) 10*3/uL MPV 8.8 L (9.5-12.2) fL Immature Gran % (Auto) 0.4 % Neutrophils % 90.7 % Lymphocytes % 6.4 % Monocytes % 2.3 % Eosinophils % 0.1 % Basophils % 0.1 % Immature Gran # 0.05 H (0.00-0.04) 10*3/uL Neutrophils # 11.40 H (1.80-7.70) 10*3/uL Lymphocytes # 0.81 L (0.90-5.00) 10*3/uL Monocytes # 0.29 (0.20-1.00) 10*3/uL Eosinophils # 0.01 L (0.04-0.35) 10*3/uL Basophils # 0.01 (0.00-0.10) 10*3/uL Sodium 139 (137-145) mmol/L Potassium 3.7 (3.5-5.1) mmol/L Chloride 99 (98-107) mmol/L Carbon Dioxide 29 (22-30) mmol/L Anion Gap 11 mmol/L BUN 28 H (9-20) mg/dL Creatinine 1.18 (0.66-1.25) mg/dL Est GFR (CKD-EPI)AfAm 76 (>60 ml/min/1.73 sqM) Est GFR (CKD-EPI)NonAf 66 (>60 ml/min/1.73 sqM) Glucose 122 H (74-99) mg/dL Calcium 9.7 (8.4-10.2) mg/dL Total Bilirubin 0.8 (0.2-1.3) mg/dL AST 34 (17-59) U/L ALT 29 (4-49) U/L Alkaline Phosphatase 72 (38-126) U/L Total Protein 6.4 (6.3-8.2) g/dL Albumin 4.1 (3.5-5.0) g/dL Lipase 67 (23-300) U/L Serum Alcohol <10 mg/dL - EKG Data -: EKG Interpreted by Me EKG Comments: 12-lead Electrocardiogram Interpretation Note EKG was reviewed and interpreted by myself. 12-lead ECG performed at 0126 is interpreted by me as revealing normal sinus rhythm at a rate of 90 beats per minute. Left axis deviation. [place] interval is 152 ms, QRS durations 145 ms, QTc is 445 ms. There were no ST or T wave abnormalities to suggest myocardial ischemia or injury. Right bundle branch block morphology present.. By my interpretation this EKG is non-diagnostic for acute ischemia. Disposition Clinical Impression: Nausea and vomiting Disposition: HOME SELF-CARE Condition: Good Instructions (If sedation given, give patient instructions): Acute Nausea and Vomiting (ED) Is patient prescribed a controlled substance at d/c from ED?: No Referrals: None,Stated [Primary Care Provider] - 1-2 days Forms: Area PCPs Time of Disposition: 03:18
[2025-01-05 03:32] VITALS: BP 125/77; PULSE 91; RESP 17; TEMP 98.2
== END 2025-01-05 03:32 | disposition home or self-care (01) ==
LOC: EC 00:27
DX: R11.2 Nausea with vomiting, unspecified (principal); F17.200 Nicotine dependence, unspecified, uncomplicated; Z88.6 Allergy status to analgesic agent
CPT/HCPCS: 36415; 93005; 80053; 83690; 85025; 99284; 96374; 96375; 96361; G0480; J2405; J2470; 80320

== ENCOUNTER 2025-01-05 03:49 | Emergency (ER) | payer OTHER ==
[2025-01-05] MEDS: ONDANSETRON 4 MG/2 ML VIAL IM STA (04:14)
[2025-01-05] MEDS: ONDANSETRON 4 MG ODT STARTER PACK 2 TAB BTL PO STA (04:14)
--- NOTE | 2025-01-05 05:58 | ED ---
General Adult HPI - General Chief complaint: Nausea/Vomiting/Diarrhea Stated complaint: Nausea, vomiting Time Seen by Provider: 01/05/25 04:00 Source: patient, RN notes reviewed, old records reviewed Mode of arrival: ambulatory Limitations: no limitations - History of Present Illness Initial comments: 64-year-old male who I just evaluated presents for nausea. No episodes of emesis. Was just discharged for nausea. Denies any abdominal pain. No new symptoms. Is asking for more Zofran. Denies any other acute complaints at this time. Patient is homeless. - Related Data Previous Rx's Medication Instructions Recorded Atorvastatin [Lipitor] 40 mg PO DAILY #0 tab 10/09/24 Levothyroxine Sodium [Synthroid] 25 mcg PO DAILY@0630 tab 10/09/24 haloperidoL [Haldol] 7.5 mg PO HS 30 Days #45 tab 10/09/24 hydrOXYzine HCL [Atarax] 50 mg PO HS 30 Days #60 tab 10/09/24 Allergies Allergy/AdvReac Type Severity Reaction Status Date / Time NSAIDS (Non-Steroidal AdvReac Nausea Verified 01/05/25 03:56 Anti-Inflamma Review of Systems ROS Statement: Those systems with pertinent positive or pertinent negative responses have been documented in the HPI. Review of Systems: CONST: Denies fever EYES: Denies blurry vision ENT: Denies nasal congestion C/V: Denies Chest pain RESP: Denies shortness of breath GI: Endorses nausea : Denies dysuria SKIN: Denies rash. MSK: Denies joint pain. NEURO: Denies headache ROS Other: All systems not noted in ROS Statement are negative. Past Medical History Past Medical History: Hyperlipidemia, Hypertension, Thyroid Disorder Additional Past Medical History / Comment(s): hepatits c History of Any Multi-Drug Resistant Organisms: None Reported Past Surgical History: Appendectomy, Hernia Repair Additional Past Surgical History / Comment(s): 2 Hernia Repairs Past Anesthesia/Blood Transfusion Reactions: No Reported Reaction Past Psychological History: Anxiety, Bipolar, Depression, Schizophrenia Smoking Status: Current every day smoker Past Alcohol Use History: None Reported Past Drug Use History: Marijuana General Exam - General Exam Comments Initial Comments: General: Appears in no acute distress. HEAD: Normal with no signs of head trauma. EYES: EOMI ENT: Hearing grossly intact, normal oropharynx. RESPIRATORY: Clear breath sounds bilaterally. No wheezes, rales, or rhonchi. C/V: Regular rate and rhythm. S1 and S2 auscultated, peripheral pulses 2+ and intact throughout ABD: Abd is soft, nontender, nondistended EXT: No obvious deformity. SKIN: No rashes or lesions observed on exposed skin. NEURO: Alert and oriented x 4. Limitations: no limitations Course Vital Signs 01/05/25 03:52 Temperature 98.2 F Pulse Rate 84 Respiratory 18 Rate Blood Pressure 144/85 O2 Sat by Pulse 100 Oximetry Medical Decision Making - Medical Decision Making Was pt. sent in by a medical professional or institution (, IVA, CASH MANAGEMENT CLERK, urgent care, hospital, or fpc...) When possible be specific @ -No Did you speak to anyone other than the patient for history (EMS, parent, family, police, friend...)? What history was obtained from this source @ -No Did you review nursing and triage notes (agree or disagree)? Why? @ -I reviewed and agree with nursing and triage notes Were old charts reviewed (outside hosp., previous admission, EMS record, old EKG, old radiological studies, urgent care reports/EKG's, fpc records)? Report findings @ -No old charts were reviewed Differential Diagnosis (chest pain, altered mental status, abdominal pain women, abdominal pain men, vaginal bleeding, weakness, fever, dyspnea, syncope, headache, dizziness, GI bleed, back pain, seizure, CVA, palpatations, mental health, musculoskeletal)? @ -Nausea and vomiting, malingering, dehydration. This list is not all- inclusive. EKG interpreted by me (3pts min.). @ -None done X-rays interpreted by me (1pt min.). @ -None done CT interpreted by me (1pt min.). @ -None done U/S interpreted by me (1pt. min.). @ -None done What testing was considered but not performed or refused? (CT, X-rays, U/S, labs)? Why? @ -None What meds were considered but not given or refused? Why? @ -None Did you discuss the management of the patient with other professionals (professionals i.e. , IVA, CASH MANAGEMENT CLERK, lab, RT, psych nurse, social media developer, second miller, teacher, conservation officer, immigration case manager)? Give summary @ -No Was smoking cessation discussed for >3mins.? @ -No Was critical care preformed (if so, how long)? @ -No Were there social determinants of health that impacted care today? How? (Homelessness, low income, unemployed, alcoholism, drug addiction, transportation, low edu. Level, literacy, decrease access to med. care, [facility], rehab)? @ -No Was there de-escalation of care discussed even if they declined (Discuss DNR or withdrawal of care, Hospice)? DNR status @ -No What co-morbidities impacted this encounter? (DM, HTN, Smoking, COPD, CAD, Cancer, CVA, ARF, Chemo, Hep., AIDS, mental health diagnosis, sleep apnea, morbid obesity)? @ -None Was patient admitted / discharged? Hospital course, mention meds given and route, prescriptions, significant lab abnormalities, going to OR and other pertinent info. @ -Patient presents as reevaluation for nausea and vomiting. Reviewed workup from earlier which was unremarkable. Given additional Zofran as well as fluid. Patient tolerated oral intake. He will be discharged home at this time. I do suspect there is some degree of malingering for a place to stay as the patient is homeless. Vitals are within acceptable limits. Patient was in agreement this plan. Patient given a starter pack of Zofran. I instructed the patient to follow up with their PCP in the next 1-3 days. I explained that the patient should return to the emergency department if they experience any worsening symptoms. Strict return precautions were discussed with the patient. The patient expressed understanding of these instructions. I answered all questions that the patient had. The patient was discharged home in good condition with their prescriptions and follow up information. Undiagnosed new problem with uncertain prognosis? @ -No Drug Therapy requiring intensive monitoring for toxicity (Heparin, Nitro, Insulin, Cardizem)? @ -No Were any procedures done? @ -No Diagnosis/symptom? @ -Nausea Acute, or Chronic, or Acute on Chronic? @ -Acute Uncomplicated (without systemic symptoms) or Complicated (systemic symptoms)? @ -Uncomplicated Side effects of treatment? @ -No Exacerbation, Progression, or Severe Exacerbation? @ -No Poses a threat to life or bodily function? How? (Chest pain, [place], [place], pneumonia, PE, COPD, DKA, ARF, appy, cholecystitis, CVA, Diverticulitis, Homicidal, Suicidal, threat to staff... and all critical care pts) @ -Unlikely at this time Disposition Clinical Impression: Nausea Disposition: HOME SELF-CARE Condition: Good Instructions (If sedation given, give patient instructions): Acute Nausea and Vomiting (ED) Is patient prescribed a controlled substance at d/c from ED?: No Referrals: None,Stated [Primary Care Provider] - 1-2 days Forms: Area PCPs Time of Disposition: 06:00
[2025-01-05 06:42] VITALS: BP 123/82; PULSE 78; RESP 17; TEMP 98
== END 2025-01-05 06:42 | disposition home or self-care (01) ==
LOC: EC 03:49
DX: R11.2 Nausea with vomiting, unspecified (principal); F17.200 Nicotine dependence, unspecified, uncomplicated; Z88.6 Allergy status to analgesic agent
CPT/HCPCS: 99283; 96372; J2405; S0119

== ENCOUNTER 2025-01-25 22:35 | Emergency (ER) | payer OTHER ==
[2025-01-25 22:46] LABS: Glucose,Whole Blood 85 mg/dL (70-110)
[2025-01-25 22:50] VITALS: RESP 17; TEMP 98.6
--- NOTE | 2025-01-25 23:23 | ED ---
General Adult HPI - General Chief complaint: Weakness Stated complaint: Mental Health Time Seen by Provider: 01/25/25 23:02 Source: patient, EMS, RN notes reviewed, old records reviewed Mode of arrival: EMS Limitations: no limitations - History of Present Illness Initial comments: 64-year-old male presenting for eval. Patient is currently homeless and states he does not feel well. He states he has bilateral hip pain which is chronic and he is awaiting evaluation for possible surgery. There has been no injury. Patient denies alcohol. He states he is tired and is needing to rest. No new physical complaints. Patient denies suicidal or homicidal ideation. - Related Data Previous Rx's Medication Instructions Recorded Atorvastatin [Lipitor] 40 mg PO DAILY #0 tab 10/09/24 Levothyroxine Sodium [Synthroid] 25 mcg PO DAILY@0630 tab 10/09/24 haloperidoL [Haldol] 7.5 mg PO HS 30 Days #45 tab 10/09/24 hydrOXYzine HCL [Atarax] 50 mg PO HS 30 Days #60 tab 10/09/24 Allergies Allergy/AdvReac Type Severity Reaction Status Date / Time NSAIDS (Non-Steroidal AdvReac Nausea Verified 01/25/25 22:50 Anti-Inflamma Review of Systems ROS Statement: Those systems with pertinent positive or pertinent negative responses have been documented in the HPI. ROS Other: All systems not noted in ROS Statement are negative. Past Medical History Past Medical History: Hyperlipidemia, Hypertension, Thyroid Disorder Additional Past Medical History / Comment(s): hepatits c History of Any Multi-Drug Resistant Organisms: None Reported Past Surgical History: Appendectomy, Hernia Repair Additional Past Surgical History / Comment(s): 2 Hernia Repairs Past Anesthesia/Blood Transfusion Reactions: No Reported Reaction Past Psychological History: Anxiety, Bipolar, Depression, Schizophrenia Smoking Status: Current every day smoker Past Alcohol Use History: None Reported Past Drug Use History: Marijuana General Exam Limitations: no limitations General appearance: alert, in no apparent distress Head exam: Present: atraumatic, normocephalic Eye exam: Present: normal appearance, PERRL ENT exam: Present: normal exam Neck exam: Present: normal inspection. Absent: tenderness, meningismus Respiratory exam: Present: normal lung sounds bilaterally. Absent: respiratory distress, wheezes Cardiovascular Exam: Present: regular rate, normal rhythm GI/Abdominal exam: Present: soft. Absent: distended, tenderness, guarding Extremities exam: Present: normal inspection, normal capillary refill Neurological exam: Present: alert, oriented X3, CN II-XII intact. Absent: motor sensory deficit Psychiatric exam: Present: depressed, flat affect. Absent: homicidal ideation, suicidal ideation Skin exam: Present: warm, dry, intact Course Vital Signs 01/25/25 22:45 Temperature 98.6 F Pulse Rate 66 Respiratory 17 Rate Blood Pressure 157/91 O2 Sat by Pulse 98 Oximetry Medical Decision Making - Medical Decision Making Was pt. sent in by a medical professional or institution (, IVA, PROCESS OWNER, urgent care, hospital, or jail...) When possible be specific @ -No Did you speak to anyone other than the patient for history (EMS, parent, family, police, friend...)? What history was obtained from this source @ -No Did you review nursing and triage notes (agree or disagree)? Why? @ -I reviewed and agree with nursing and triage notes Were old charts reviewed (outside hosp., previous admission, EMS record, old EKG, old radiological studies, urgent care reports/EKG's, jail records)? Report findings @ -No old charts were reviewed Differential Diagnosis (chest pain, altered mental status, abdominal pain women, abdominal pain men, vaginal bleeding, weakness, fever, dyspnea, syncope, headache, dizziness, GI bleed, back pain, seizure, CVA, palpatations, mental health, musculoskeletal)? @ -Not applicable EKG interpreted by me (3pts min.). @ -As above X-rays interpreted by me (1pt min.). @ -None done CT interpreted by me (1pt min.). @ -None done U/S interpreted by me (1pt. min.). @ -None done What testing was considered but not performed or refused? (CT, X-rays, U/S, labs)? Why? @ -None What meds were considered but not given or refused? Why? @ -None Did you discuss the management of the patient with other professionals (professionals i.e. IVA Garcia, PROCESS OWNER, lab, RT, psych nurse, oncology social worker, sales account specialist, teacher, aircraft electronics technical officer, classification case manager)? Give summary @ -No Was smoking cessation discussed for >3mins.? @ -No Was critical care preformed (if so, how long)? @ -No Were there social determinants of health that impacted care today? How? (Homelessness, low income, unemployed, alcoholism, drug addiction, transportation, low edu. Level, literacy, decrease access to med. care, alf, rehab)? @ -No Was there de-escalation of care discussed even if they declined (Discuss DNR or withdrawal of care, Hospice)? DNR status @ -No What co-morbidities impacted this encounter? (DM, HTN, Smoking, COPD, CAD, Cancer, CVA, ARF, Chemo, Hep., AIDS, mental health diagnosis, sleep apnea, morbid obesity)? @ -None Was patient admitted / discharged? Hospital course, mention meds given and route, prescriptions, significant lab abnormalities, going to OR and other pertinent info. @ -64-year-old male with nonspecific complaints without vital sign abnormality. Patient homeless and requesting a place to sleep. No emergency identified. Undiagnosed new problem with uncertain prognosis? @ -No Drug Therapy requiring intensive monitoring for toxicity (Heparin, Nitro, Insulin, Cardizem)? @ -No Were any procedures done? @ -No Diagnosis/symptom? @ -Homeless Acute, or Chronic, or Acute on Chronic? @Chronic Uncomplicated (without systemic symptoms) or Complicated (systemic symptoms)? @ -Default Side effects of treatment? @ -No Exacerbation, Progression, or Severe Exacerbation? @ -No Poses a threat to life or bodily function? How? (Chest pain, [place], [place], pneumonia, PE, COPD, DKA, ARF, appy, cholecystitis, CVA, Diverticulitis, Homicidal, Suicidal, threat to staff... and all critical care pts) @ -No - Lab Data Lab Results 01/25/25 Range/Units 22:44 POC Glucose (mg/dL) 85 (70-110) mg/dL POC Glu [employer] Waste Technician ID Jose L Oliva Disposition Clinical Impression: Adjustment reaction of adult life Disposition: HOME SELF-CARE Condition: Fair Is patient prescribed a controlled substance at d/c from ED?: No Referrals: None,Stated [Primary Care Provider] - 1-2 days
[2025-01-26 05:39] VITALS: BP 165/97; PULSE 70
== END 2025-01-26 05:39 | disposition home or self-care (01) ==
LOC: EC 22:35
DX: F43.20 Adjustment disorder, unspecified (principal); F17.200 Nicotine dependence, unspecified, uncomplicated; Z88.6 Allergy status to analgesic agent
CPT/HCPCS: 36415; 99284